=== PATIENT | male | born 1935 | race Caucasian/White ===

== ENCOUNTER 2018-11-25 16:57 | Inpatient (IN) | payer MEDICARE, MEDICAID ==
[~2018-11-25] VITALS: Ht 177.8 cm; Wt 91.3 kg
[2018-11-25 17:26] LABS: BASO # 0.1 x10^3/uL (0.0-0.2); BASO % 1 % (0-3); EOS # 0.2 x10^3/uL (0.0-0.7); EOS % 2 % (0-3); HEMATOCRIT 44.5 % (39.0-53.0); HEMOGLOBIN 15.2 g/dL (13.0-17.5); LYMPH # 1.8 x10^3/uL (1.0-4.8); LYMPH % 22 % (24-48); MEAN CORPUSCULAR HEMOGLOBIN 31 pg (25-35); MEAN CORPUSCULAR HGB CONC 34 g/dL (31-37); MEAN CORPUSCULAR VOLUME 89 fL (79-100); MONO # 0.6 x10^3/uL (0.0-1.1); MONO % 8 % (0-9); NEUT # 5.3 x10^3uL (1.8-7.7); NEUT % 67 % (31-73); PLATELET COUNT 200 x10^3/uL (140-400); RED BLOOD COUNT 4.99 x10^6/uL (4.30-5.70); RED CELL DISTRIBUTION WIDTH 13.5 % (11.5-14.5); WHITE BLOOD COUNT 7.9 x10^3/uL (4.0-11.0)
[2018-11-25 17:37] LABS: BACTERIA,URINE 0 /HPF (0-FEW); BILIRUBIN,URINE NEG (NEG); CLARITY,URINE CLEAR; COLOR,URINE YELLOW; GLUCOSE,URINE 500 mg/dL (NEG); NITRITE,URINE NEG (NEG); RBC,URINE 0 /HPF (0-2); SQUAMOUS EPITHELIAL CELL,UR OCC /LPF; UROBILINOGEN,URINE 0.2 mg/dL (0.2 mg/dL); WBC,URINE 0 /HPF (0-4)
--- NOTE | 2018-11-25 17:37 | EKG ---
[address] [address] Test Date: 2018-11-25 Test Time: 17:16:32 Pat Name: TANO RUSSO Department: Room: Gender: M Manager Sql: : 1935 Requested By: SHELLEY CHRISTOPHER Order Number: [id number] Reading MD: Steve Rust Measurements Intervals [place] Rate: 65 P: 40 MN: 276 QRS: -60 QRSD: 124 T: 1 QT: 432 QTc: 450 Interpretive Statements SINUS RHYTHM PROLONGED MN INTERVAL ABNORMAL LEFT AXIS DEVIATION QRS(T) CONTOUR ABNORMALITY CONSIDER ANTEROSEPTAL MYOCARDIAL DAMAGE ABNORMAL ECG RI6.01 No previous ECG available for comparison Electronically Signed On 11-29-2018 9:22:42 CDT by Steve Rust
--- NOTE | 2018-11-25 17:42 | PHYS DOC ---
Past History Past Medical History: Angina, Anxiety, COPD, Dementia, Heart Disease Past Surgical History: Other Alcohol Use: None Drug Use: None Adult General Chief Complaint Chief Complaint: PSYCH EVALUATION HPI HPI 82-year-old male presents for medical clearance for behavioral health admission. The patient was reported to inappropriately touching the staph in a sexual manner. He was also touching himself inappropriately while being cared for. The patient has dementia and does not really know why he is here. He denies any pain or to me. He has a right oertr-rze-hgzl amputation. He was not reported to have fever or chills. Review of Systems Review of Systems Constitutional: Denies fever or chills [] Eyes: Denies change in visual acuity, redness, or eye pain [] HENT: Denies nasal congestion or sore throat [] Respiratory: Denies cough or shortness of breath [] Cardiovascular: No additional information not addressed in HPI [] GI: Denies abdominal pain, nausea, vomiting, bloody stools or diarrhea [] : Denies dysuria or hematuria [] Musculoskeletal: Denies back pain or joint pain [] Integument: Denies rash or skin lesions [] Neurologic: Denies headache, focal weakness or sensory changes [] Endocrine: Denies polyuria or polydipsia [] All other systems were reviewed and found to be within normal limits, except as documented in this note. Physical Exam Physical Exam Constitutional: Well developed, well nourished, no acute distress, non-toxic appearance. [] HENT: Normocephalic, atraumatic, bilateral external ears normal, oropharynx moist, no oral exudates, nose normal. [] Eyes: PERRLA, EOMI, conjunctiva normal, no discharge. [] Neck: Normal range of motion, no tenderness, supple, no stridor. [] Cardiovascular:Heart rate regular rhythm, no murmur [] Lungs & Thorax: Bilateral breath sounds clear to auscultation [] Abdomen: Bowel sounds normal, soft, no tenderness, no masses, no pulsatile masses. [] Skin: Warm, dry, no erythema, no rash. [] Back: No tenderness, no CVA tenderness. [] Extremities: Right opymk-tzm-zvrs amputation[] Neurologic: Alert and oriented, dementia, normal motor function, normal sensory function, no focal deficits noted. [] Psychologic: Affect normal, judgement normal, mood normal. [] Current Patient Data Vital Signs Vital Signs Date Time Temp Pulse Resp B/P (MAP) Pulse Ox O2 Delivery O2 Flow Rate FiO2 11/25/18 17:09 98.2 66 24 97 Room Air Lab Results Laboratory Tests Test 11/25/18 17:13 White Blood Count 7.9 x10^3/uL (4.0-11.0) Red Blood Count 4.99 x10^6/uL (4.30-5.70) Hemoglobin 15.2 g/dL (13.0-17.5) Hematocrit 44.5 % (39.0-53.0) Mean Corpuscular Volume 89 fL (79-100) Mean Corpuscular Hemoglobin 31 pg (25-35) Mean Corpuscular Hemoglobin Concent 34 g/dL (31-37) Red Cell Distribution Width 13.5 % (11.5-14.5) Platelet Count 200 x10^3/uL (140-400) Neutrophils (%) (Auto) 67 % (31-73) Lymphocytes (%) (Auto) 22 % (24-48) L Monocytes (%) (Auto) 8 % (0-9) Eosinophils (%) (Auto) 2 % (0-3) Basophils (%) (Auto) 1 % (0-3) Neutrophils # (Auto) 5.3 x10^3uL (1.8-7.7) Lymphocytes # (Auto) 1.8 x10^3/uL (1.0-4.8) Monocytes # (Auto) 0.6 x10^3/uL (0.0-1.1) Eosinophils # (Auto) 0.2 x10^3/uL (0.0-0.7) Basophils # (Auto) 0.1 x10^3/uL (0.0-0.2) Urine Collection Type Unknown Urine Color Yellow Urine Clarity Clear Urine pH 6.0 Urine Specific [place] 1.015 Urine Protein Neg (NEG-TRACE) Urine Glucose (UA) 500 mg/dL (NEG) Urine Ketones (Stick) Trace mg/dL (NEG) Urine Blood Trace (NEG) Urine Nitrite Neg (NEG) Urine Bilirubin Neg (NEG) Urine Urobilinogen Dipstick 0.2 mg/dL (0.2 mg/dL) Urine Leukocyte Esterase Neg (NEG) Urine RBC 0 /HPF (0-2) Urine WBC 0 /HPF (0-4) Urine Squamous Epithelial Cells Occ /LPF Urine Bacteria 0 /HPF (0-FEW) EKG EKG Sinus rhythm, rate 65, leftward axis, prolonged AR, no ST elevations or depressions.[] Radiology/Procedures Radiology/Procedures [] Course & Med Decision Making Course & Med Decision Making Pertinent Labs and Imaging studies reviewed. (See chart for details) The patient's potassium is slightly elevated at 5.2. His glucose is also 331. His anion gap was normal. I do not believe he either of these precludes him from admission. He is medically stable for behavioral health admission. They will need to help manage his diabetes. [] Dragon Disclaimer Dragon Disclaimer This electronic medical record was generated, in whole or in part, using a voice recognition dictation system. Departure Departure: Impression: Primary Impression: Medical clearance for psychiatric admission Additional Impressions: Hyperglycemia Hyperkalemia Disposition: ADMITTED INPATIENT Condition: STABLE Referrals: JENNI SAN MD (PCP) Problem Qualifiers SHELLEY CHRISTOPHER DO Nov 25, 2018 17:42
[2018-11-25 17:52] LABS: ALBUMIN 3.6 g/dL (3.4-5.0); CALCIUM 8.8 mg/dL (8.5-10.1); CREATININE 1.6 mg/dL (0.7-1.3); GFR 41.8; POTASSIUM 5.2 mmol/L (3.5-5.1); TOTAL BILIRUBIN 0.3 mg/dL (0.2-1.0); TOTAL PROTEIN 7.3 g/dL (6.4-8.2)
[2018-11-25] MEDS ORDERED: RIVAROXABAN 10 MG TABLET. PO SCH (21:00)
[2018-11-25] MEDS ORDERED: AMLO5TAB10 PO (21:34)
[2018-11-25] MEDS ORDERED: DIVA500T17 PO (21:34)
[2018-11-25] MEDS ORDERED: CITA10TA4 PO (21:34)
[2018-11-25] MEDS ORDERED: LISI40TA PO (21:34)
[2018-11-25] MEDS ORDERED: ACET160S PO (21:34)
[2018-11-25] MEDS ORDERED: ATOR20TA58 PO (21:34)
[2018-11-25] MEDS ORDERED: TRAZ-120 PO (21:34)
[2018-11-25] MEDS ORDERED: LEVO25TA4 PO (21:34)
[2018-11-25] MEDS ORDERED: RIVA10TA PO (21:34)
[2018-11-25] MEDS ORDERED: INSU100I17 SQ ×3 (21:34)
[2018-11-25] MEDS ORDERED: INSU100V13 SQ ×2 (21:34)
[2018-11-25] MEDS ORDERED: DONE5TAB7 PO (21:34)
[2018-11-25] MEDS ORDERED: ACETAMINOPHEN 325 MG TABLET PO PRN ×2 (22:00→23:30)
[2018-11-25] MEDS: traZODone 50 MG TABLET. PO SCH (22:08)
[2018-11-25 22:15] VITALS: BP 171/97
[2018-11-25] MEDS: INSULIN GLARGINE 300 UNITS/3 ML INSULN.PEN. SQ SCH (22:19)
--- NOTE | 2018-11-25 22:24 | PDOC ---
Exam Note: Dwain Note: Please also refer to the separate dictated note~for this date of service dictated separately. Discussed the patient with Nursing staff reviewed the chart.~Reviewed interim history and current functioning. Reviewed vital signs,~Labs/ Radiology~and current medications noted below. Continue current treatment with the changes noted in the dictated addendum note Assessment: Vital Signs: Vital Signs Date Time Temp Pulse Resp B/P (MAP) Pulse Ox O2 Delivery O2 Flow Rate FiO2 11/25/18 22:15 97.7 66 18 171/97 (121) 98 11/25/18 17:09 Room Air Labs: Laboratory Tests Test 11/25/18 17:13 11/25/18 19:30 White Blood Count 7.9 x10^3/uL (4.0-11.0) Red Blood Count 4.99 x10^6/uL (4.30-5.70) Hemoglobin 15.2 g/dL (13.0-17.5) Hematocrit 44.5 % (39.0-53.0) Mean Corpuscular Volume 89 fL (79-100) Mean Corpuscular Hemoglobin 31 pg (25-35) Mean Corpuscular Hemoglobin Concent 34 g/dL (31-37) Red Cell Distribution Width 13.5 % (11.5-14.5) Platelet Count 200 x10^3/uL (140-400) Neutrophils (%) (Auto) 67 % (31-73) Lymphocytes (%) (Auto) 22 % (24-48) L Monocytes (%) (Auto) 8 % (0-9) Eosinophils (%) (Auto) 2 % (0-3) Basophils (%) (Auto) 1 % (0-3) Neutrophils # (Auto) 5.3 x10^3uL (1.8-7.7) Lymphocytes # (Auto) 1.8 x10^3/uL (1.0-4.8) Monocytes # (Auto) 0.6 x10^3/uL (0.0-1.1) Eosinophils # (Auto) 0.2 x10^3/uL (0.0-0.7) Basophils # (Auto) 0.1 x10^3/uL (0.0-0.2) Urine Collection Type Unknown Urine Color Yellow Urine Clarity Clear Urine pH 6.0 Urine Specific [place] 1.015 Urine Protein Neg (NEG-TRACE) Urine Glucose (UA) 500 mg/dL (NEG) Urine Ketones (Stick) Trace mg/dL (NEG) Urine Blood Trace (NEG) Urine Nitrite Neg (NEG) Urine Bilirubin Neg (NEG) Urine Urobilinogen Dipstick 0.2 mg/dL (0.2 mg/dL) Urine Leukocyte Esterase Neg (NEG) Urine RBC 0 /HPF (0-2) Urine WBC 0 /HPF (0-4) Urine Squamous Epithelial Cells Occ /LPF Urine Bacteria 0 /HPF (0-FEW) Sodium Level 133 mmol/L (136-145) L Potassium Level 5.2 mmol/L (3.5-5.1) H Chloride Level 98 mmol/L (98-107) Carbon Dioxide Level 26 mmol/L (21-32) Anion Gap 9 (6-14) Blood Urea Nitrogen 26 mg/dL (8-26) Creatinine 1.6 mg/dL (0.7-1.3) H Estimated GFR (Cockcroft-Gault) 41.8 BUN/Creatinine Ratio 16 (6-20) Glucose Level 331 mg/dL (70-99) H Calcium Level 8.8 mg/dL (8.5-10.1) Magnesium Level 2.0 mg/dL (1.8-2.4) Total Bilirubin 0.3 mg/dL (0.2-1.0) Aspartate Amino Transferase (AST) 11 U/L (15-37) L Alanine Aminotransferase (ALT) 15 U/L (16-63) L Alkaline Phosphatase 97 U/L (46-116) Total Protein 7.3 g/dL (6.4-8.2) Albumin 3.6 g/dL (3.4-5.0) Albumin/Globulin Ratio 1.0 (1.0-1.7) Glucose (Fingerstick) 323 mg/dL (70-99) H Current Medications: Meds: Current Medications Rivaroxaban (Xarelto) 20 mg HS PO ; Start 11/25/18 at 21:00 Insulin Glargine (Lantus) 45 units QHS SQ ; Start 11/25/18 at 21:00 Atorvastatin Calcium (Lipitor) 20 mg QHS PO ; Start 11/26/18 at 21:00 Citalopram Hydrobromide (CeleXA) 10 mg DAILYBFRSUP PO ; Start 11/26/18 at 17:00 Rivaroxaban (Xarelto) 20 mg HS PO ; Start 11/26/18 at 21:00; Stop 11/26/18 at 21:00; Status DC Acetaminophen (Tylenol) 650 mg PRN Q6HRS PRN PO PAIN / TEMP; Start 11/25/18 at 22:00 Amlodipine Besylate (Norvasc) 5 mg DAILY PO ; Start 11/26/18 at 09:00 Divalproex Sodium (Depakote Er) 500 mg DAILY PO ; Start 11/26/18 at 09:00 Donepezil HCl (Aricept) 5 mg DAILY PO ; Start 11/26/18 at 09:00 Insulin Human Lispro (HumaLOG) 10 units DAILYBFRLUN SQ ; Start 11/26/18 at 11:30 Insulin Human Lispro (HumaLOG) 10 units DAILYWBKFT SQ ; Start 11/26/18 at 08:00 Insulin Human Lispro (HumaLOG) 17 units DAILYWSUP SQ ; Start 11/26/18 at 17:00 Insulin Glargine (Lantus) 5 units DAILY SQ ; Start 11/26/18 at 09:00 Non-Formulary Medication (Insulin Detemir (Levemir)) 45 unit HS SQ ; Start 11/26/18 at 21:00; Stop 11/26/18 at 21:00; Status DC Levothyroxine Sodium (Synthroid) 25 mcg DAILY06 PO ; Start 11/26/18 at 06:00 Lisinopril (Prinivil) 40 mg DAILY PO ; Start 11/26/18 at 09:00 Trazodone HCl (Desyrel) 50 mg QHS PO ; Start 11/25/18 at 22:00 Active Scripts Active Reported Atorvastatin Calcium 20 Mg Tablet 20 Mg PO QHS Amlodipine Besylate 5 Mg Tablet 5 Mg PO DAILY Acetaminophen 160 Mg/5 Ml Solution 650 Mg PO PRN Q6HRS PRN Xarelto (Rivaroxaban) 10 Mg Tablet 20 Mg PO HS Trazodone Hcl 50 Mg Tablet 50 Mg PO HS Novolog Flexpen (Insulin Aspart) 100 Unit/1 Ml Insuln.pen 17 Unit SQ DAILYWSUP Novolog Flexpen (Insulin Aspart) 100 Unit/1 Ml Insuln.pen 10 Unit SQ DAILYBFRLUN Novolog Flexpen (Insulin Aspart) 100 Unit/1 Ml Insuln.pen 10 Unit SQ DAILYWBKFT Levothyroxine Sodium 25 Mcg Tablet 25 Mcg PO DAILYAC Levemir (Insulin Detemir) 100 Unit/1 Ml Vial 5 SQ DAILY Levemir (Insulin Detemir) 100 Unit/1 Ml Vial 45 Unit SQ HS Donepezil Hcl 5 Mg Tablet 5 Mg PO DAILY Divalproex Sodium Er (Divalproex Sodium) 500 Mg Tab.er.24h 500 Mg PO DAILY Citalopram Hbr (Citalopram Hydrobromide) 10 Mg Tablet 10 Mg PO DAILYBFRSUP Lisinopril 40 Mg Tablet 40 Mg PO DAILY I have reviewed the current psychotropics carefully including drug interactions. Risk benefit ratio favors no change other than as noted in my dictated progress note. NEGIN CRUZ MD Nov 25, 2018 22:24
[2018-11-25] MEDS ORDERED: MAG HYDROX/AL HYDROX/SIMETH 30 ML ORAL.SUSP PO PRN (23:30)
[2018-11-25] MEDS ORDERED: MAGNESIUM HYDROXIDE 2,400 MG/30 ML ORAL.SUSP. PO PRN (23:30)
[2018-11-25] MEDS ORDERED: METHYL SALICYLATE/MENTHOL TOPICAL OINTMENT 29GM TUBE. TP PRN (23:30)
[2018-11-26 00:12] LABS: VAL ACID 32 mcg/mL (50-100)
[2018-11-26 05:54] VITALS: BP 122/72
[2018-11-26] MEDS: LEVOTHYROXINE 25 MCG TABLET. PO SCH (05:59)
[2018-11-26] MEDS: DONEPEZIL HCL 5 MG TABLET. PO SCH (07:53)
[2018-11-26] MEDS: LISINOPRIL 20 MG TABLET PO SCH (07:54)
[2018-11-26] MEDS: amLODIPine BESYLATE 5 MG TABLET PO SCH (07:55)
[2018-11-26] MEDS: DIVALPROEX ER 500 MG TAB.ER.24H PO SCH (07:55)
[2018-11-26] MEDS: INSULIN LISPRO 300 UNITS/3 ML INSULN.PEN. SQ SCH ×3 (07:59→17:51)
[2018-11-26] MEDS: INSULIN GLARGINE 300 UNITS/3 ML INSULN.PEN. SQ SCH ×2 (08:02→19:44)
--- NOTE | 2018-11-26 13:05 | HP ---
ADMIT DATE: 11/25/2018 NO DICTATION MAN Dulce CRUZ MD DR: Capri JOB#: [id number] / [id number]
[2018-11-26 15:44] VITALS: BP 180/77
[2018-11-26 16:07] LABS: THYROXINE 6.3 ug/dL (4.5-12.0)
[2018-11-26] MEDS ORDERED: CITALOPRAM 10 MG TABLET. PO SCH (17:00)
[2018-11-26] MEDS: traZODone 50 MG TABLET. PO SCH (19:23)
[2018-11-26] MEDS: ATORVASTATIN CALCIUM 20 MG TABLET PO SCH (19:42)
[2018-11-26] MEDS: RIVAROXABAN 15 MG TABLET. PO SCH (19:42)
[2018-11-26] MEDS ORDERED: INSULIN DETEMIR 45 UNIT SQ SCH (21:00)
[2018-11-26] MEDS ORDERED: RIVAROXABAN 10 MG TABLET. PO SCH (21:00)
[2018-11-26 21:07] LABS: THYROID STIM HORMONE (TSH) 3.13 uIU/mL (0.358-3.740)
--- NOTE | 2018-11-26 21:30 | PDOC ---
Exam Note: Dwain Note: Please also refer to the separate dictated note~for this date of service dictated separately.~Patient seen individually. Discussed the patient with Nursing staff reviewed the chart.~Reviewed interim history and current functioning. Reviewed vital signs,~Labs/ Radiology~and current medications noted below. Continue current treatment with the changes noted in the dictated addendum note Assessment: Vital Signs: Vital Signs Date Time Temp Pulse Resp B/P (MAP) Pulse Ox O2 Delivery O2 Flow Rate FiO2 11/26/18 15:44 97.3 69 16 180/77 (111) 97 11/26/18 05:54 Room Air Labs: Laboratory Tests Test 11/26/18 07:35 11/26/18 12:11 11/26/18 17:21 11/26/18 19:42 Glucose (Fingerstick) 114 mg/dL (70-99) H 76 mg/dL (70-99) 227 mg/dL (70-99) H 237 mg/dL (70-99) H Current Medications: Meds: Current Medications Rivaroxaban (Xarelto) 20 mg HS PO Last administered on 11/25/18at 22:08; Start 11/25/18 at 21:00; Stop 11/26/18 at 14:13; Status DC Insulin Glargine (Lantus) 45 units QHS SQ Last administered on 11/26/18at 19:44; Start 11/25/18 at 21:00 Atorvastatin Calcium (Lipitor) 20 mg QHS PO Last administered on 11/26/18at 19:42; Start 11/26/18 at 21:00 Citalopram Hydrobromide (CeleXA) 10 mg DAILYBFRSUP PO Last administered on 11/26/18at 16:02; Start 11/26/18 at 17:00 Rivaroxaban (Xarelto) 20 mg HS PO ; Start 11/26/18 at 21:00; Stop 11/26/18 at 21:00; Status DC Acetaminophen (Tylenol) 650 mg PRN Q6HRS PRN PO PAIN / TEMP; Start 11/25/18 at 22:00 Amlodipine Besylate (Norvasc) 5 mg DAILY PO Last administered on 11/26/18at 07:55; Start 11/26/18 at 09:00 Divalproex Sodium (Depakote Er) 500 mg DAILY PO Last administered on 11/26/18at 07:55; Start 11/26/18 at 09:00 Donepezil HCl (Aricept) 5 mg DAILY PO Last administered on 11/26/18at 07:53; Start 11/26/18 at 09:00 Insulin Human Lispro (HumaLOG) 10 units DAILYBFRLUN SQ ; Start 11/26/18 at 11:30 Insulin Human Lispro (HumaLOG) 10 units DAILYWBKFT SQ Last administered on 11/26/18at 07:59; Start 11/26/18 at 08:00 Insulin Human Lispro (HumaLOG) 17 units DAILYWSUP SQ Last administered on 11/26/18at 17:51; Start 11/26/18 at 17:00 Insulin Glargine (Lantus) 5 units DAILY SQ Last administered on 11/26/18at 08:02; Start 11/26/18 at 09:00 Non-Formulary Medication (Insulin Detemir (Levemir)) 45 unit HS SQ ; Start 11/26/18 at 21:00; Stop 11/26/18 at 21:00; Status DC Levothyroxine Sodium (Synthroid) 25 mcg DAILY06 PO Last administered on 11/26/18at 05:59; Start 11/26/18 at 06:00 Lisinopril (Prinivil) 40 mg DAILY PO Last administered on 11/26/18at 07:54; Start 11/26/18 at 09:00 Trazodone HCl (Desyrel) 50 mg QHS PO Last administered on 11/26/18at 19:23; Start 11/25/18 at 22:00 Acetaminophen (Tylenol) 650 mg PRN Q6HRS PRN PO PAIN / TEMP; Start 11/25/18 at 23:30; Status UNV Multi-Ingredient Ointment (Analgesic [place]) 1 katarzyna PRN QID PRN TP MUSCLE PAIN; Start 11/25/18 at 23:30 Al Hydroxide/Mg Hydroxide (Mylanta Plus Xs) 15 ml PRN AFTMEALHC PRN PO DYSPEPSIA; Start 11/25/18 at 23:30 Magnesium Hydroxide (Milk Of Magnesia) 2,400 mg PRN QHS PRN PO CONSTIPATION; Start 11/25/18 at 23:30 Rivaroxaban (Xarelto) 15 mg QHS PO Last administered on 11/26/18at 19:42; Start 11/26/18 at 21:00 Active Scripts Active Reported Atorvastatin Calcium 20 Mg Tablet 20 Mg PO QHS Amlodipine Besylate 5 Mg Tablet 5 Mg PO DAILY Acetaminophen 160 Mg/5 Ml Solution 650 Mg PO PRN Q6HRS PRN Xarelto (Rivaroxaban) 10 Mg Tablet 20 Mg PO HS Trazodone Hcl 50 Mg Tablet 50 Mg PO HS Novolog Flexpen (Insulin Aspart) 100 Unit/1 Ml Insuln.pen 17 Unit SQ DAILYWSUP Novolog Flexpen (Insulin Aspart) 100 Unit/1 Ml Insuln.pen 10 Unit SQ DAILYBFRLUN Novolog Flexpen (Insulin Aspart) 100 Unit/1 Ml Insuln.pen 10 Unit SQ DAILYWBKFT Levothyroxine Sodium 25 Mcg Tablet 25 Mcg PO DAILYAC Levemir (Insulin Detemir) 100 Unit/1 Ml Vial 5 SQ DAILY Levemir (Insulin Detemir) 100 Unit/1 Ml Vial 45 Unit SQ HS Donepezil Hcl 5 Mg Tablet 5 Mg PO DAILY Divalproex Sodium Er (Divalproex Sodium) 500 Mg Tab.er.24h 500 Mg PO DAILY Citalopram Hbr (Citalopram Hydrobromide) 10 Mg Tablet 10 Mg PO DAILYBFRSUP Lisinopril 40 Mg Tablet 40 Mg PO DAILY I have reviewed the current psychotropics carefully including drug interactions. Risk benefit ratio favors no change other than as noted in my dictated progress note. 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
[2018-11-26 22:12] LABS: HEMOGLOBIN A1C 8.5 % (4.8-5.6)
[2018-11-27 05:55] VITALS: BP 131/60
[2018-11-27] MEDS: LEVOTHYROXINE 25 MCG TABLET. PO SCH (06:13)
[2018-11-27] MEDS: INSULIN LISPRO 300 UNITS/3 ML INSULN.PEN. SQ SCH ×3 (08:00→17:15)
--- NOTE | 2018-11-27 08:46 | HP ---
ADMIT DATE: 11/25/2018 PSYCHIATRIC ADMISSION HISTORY AND EVALUATION This is a late entry of date of service 11/25/2018, covers elements not covered in my initial note of 11/25/2018. IDENTIFYING DATA: The patient is an 82-year-old male referred to us from [place], [place] by his primary care physician/psychiatrist on account of worsening confusion and marked escalation of his sexually inappropriate, aggressive, disruptive behaviors. Reportedly, he had been masturbating during cares. He was asking for sexual favors from other residents and putting female residents' hands on his penis. He was verbally aggressive, even more confused than he is at baseline, appeared psychotic, unmanageable at the facility resulting in this referral. CHIEF COMPLAINT: "I don't know when I came here. I came from [place]. No, I don't know the name of the place. I don't know why." The patient responded after I questioned him about circumstances prompting admission, and he seemed either to ignore the questions or did not seem to remember genuinely due to his memory deficits. HISTORY OF PRESENT ILLNESS: The patient has a history of dementia, Alzheimer's, vascular type. He has been residing at the above facility for some time, but more recently getting increasingly aggressive, agitated, sexually inappropriate disruptive as noted above. No clear symptoms of bipolar disorder, suicidal or homicidal ideation. He has had sleep and appetite disturbance. PAST PSYCHIATRIC HISTORY: As above. PAST MEDICAL HISTORY: Positive for right below knee amputation, hypothyroidism, generalized muscle weakness, atherosclerotic heart disease, type 2 diabetes mellitus with diabetic neuropathy, hyperlipidemia, hypertension, atrial fibrillation, COPD and he has a pacemaker in place. ALLERGIES: MORPHINE. CODE STATUS: Full code. Accu-Cheks a.c. and at bedtime. DIET: Regular, cardiac. Takes medications whole. Ambulates in wheelchair, right leg has below-knee amputation. UA on 11/25/2018 was negative. CURRENT PSYCHOTROPICS: Celexa 10 mg a day, Depakote ER 500 mg daily, Aricept 10 mg a day, and trazodone 50 mg at bedtime. FAMILY HISTORY: Noncontributory. SOCIAL HISTORY: No history of alcohol, drug abuse, physical, sexual elder abuse history is noted. Perpetration behaviors are noted above. REACTION TO HOSPITALIZATION: The patient seems somewhat oblivious to this. ASSETS: Supportive living at the above facility, supportive family. MENTAL STATUS EXAMINATION: The patient was seen individually. He is oriented to himself, not entirely aware where he was, felt the year was 1959, unaware of the name of the president as I pointedly questioned him. Insight, judgment, recent and remote memory, attention, concentration, fund of knowledge poor, consistent with his diagnosis. IMPRESSION: Major neurocognitive disorder, Alzheimer, vascular with delusion, depression, behavioral disturbance; anxiety disorder, unspecified; impulse control disorder, unspecified. Rest diagnoses as above. PLAN: Admit to geropsychiatry unit at [facility]. I will see the patient daily individually from a psychiatric standpoint. Medical followup per Dr. Pierre. Continue the patient on his current psychotropics. Observe baseline, then make further adjustments as clinically indicated. Estimated length of stay 10-12 days. DISPOSITION: Plans back to retirement when stable. We will have to adjust Depakote to reach a therapeutic level. Consider hormone supplements if sexually inappropriate behaviors persist. MAN Dulce CRUZ MD DR: JADA/archie JOB#: [id number] / [id number]
[2018-11-27] MEDS: DIVALPROEX ER 500 MG TAB.ER.24H PO SCH (09:00)
[2018-11-27] MEDS: LISINOPRIL 20 MG TABLET PO SCH (09:00)
[2018-11-27] MEDS: INSULIN GLARGINE 300 UNITS/3 ML INSULN.PEN. SQ SCH ×2 (09:00→19:30)
[2018-11-27] MEDS: DONEPEZIL HCL 5 MG TABLET. PO SCH (09:00)
[2018-11-27] MEDS: amLODIPine BESYLATE 5 MG TABLET PO SCH (09:00)
[2018-11-27] MEDS ORDERED: DIVALPROEX ER 250 MG TAB.ER.24H. PO ONE (11:45)
[2018-11-27 13:07] LABS: BASO # 0.1 x10^3/uL (0.0-0.2); BASO % 1 % (0-3); EOS # 0.1 x10^3/uL (0.0-0.7); EOS % 1 % (0-3); HEMATOCRIT 42.6 % (39.0-53.0); HEMOGLOBIN 14.8 g/dL (13.0-17.5); LYMPH # 1.9 x10^3/uL (1.0-4.8); LYMPH % 23 % (24-48); MEAN CORPUSCULAR HEMOGLOBIN 31 pg (25-35); MEAN CORPUSCULAR HGB CONC 35 g/dL (31-37); MEAN CORPUSCULAR VOLUME 89 fL (79-100); MONO # 0.5 x10^3/uL (0.0-1.1); MONO % 6 % (0-9); NEUT # 5.7 x10^3uL (1.8-7.7); NEUT % 69 % (31-73); PLATELET COUNT 200 x10^3/uL (140-400); RED CELL DISTRIBUTION WIDTH 13.7 % (11.5-14.5); WHITE BLOOD COUNT 8.3 x10^3/uL (4.0-11.0)
[2018-11-27 13:20] LABS: ALBUMIN 3.3 g/dL (3.4-5.0); CALCIUM 8.3 mg/dL (8.5-10.1); CREATININE 1.6 mg/dL (0.7-1.3); GFR 41.8; POTASSIUM 3.9 mmol/L (3.5-5.1); TOTAL BILIRUBIN 0.4 mg/dL (0.2-1.0); TOTAL PROTEIN 6.7 g/dL (6.4-8.2)
--- NOTE | 2018-11-27 14:51 | CONS ---
DATE OF CONSULTATION: 11/26/2018 REASON FOR CONSULTATION: Consult for medical management. HISTORY OF PRESENT ILLNESS: The patient is an 82-year-old male patient, a resident at [facility] in [place], who [facility] on account of masturbating during cares, asking sexual favors from other resident, putting female resident's hands on his penis, being verbally aggressive, all these on a background of major neurocognitive disorder, vascular, Alzheimer with delusion, depression. He was admitted for inpatient psychiatric stabilization. PAST MEDICAL HISTORY: His past medical history is significant for hypothyroidism, atherosclerotic heart disease, type 2 diabetes mellitus, diabetic neuropathy, hypertension, hyperlipidemia. Other medical problems are including atrial fibrillation, chronic obstructive airway disease. PAST SURGICAL HISTORY: Past surgical history is significant for right below knee amputation. PAST PSYCHIATRIC HISTORY: Past psychiatric history is significant for neurocognitive disorder, vascular, Alzheimer with delusion, depression. He is also known to have anxiety disorder, impulse control disorder as well. FAMILY HISTORY: Unremarkable. SOCIAL HISTORY: He is a resident at [facility] in [place]. He apparently does not smoke, drink alcohol or use any recreational drugs. REVIEW OF SYSTEMS: As per history of present illness. ALLERGIES: He is ALLERGIC TO MORPHINE. MEDICATIONS: He is currently on following medications: He is on Aricept 5 mg once a day, rivaroxaban 20 mg once a day, atorvastatin calcium 20 mg at bedtime, amlodipine 5 mg once a day, lisinopril 40 mg once a day, Tylenol 650 mg every 6 hours as needed. He is on divalproex 500 mg daily, citalopram hydrobromide 10 mg daily, trazodone 50 mg at bedtime. He is on NovoLog insulin 10 units before breakfast and 10 units before lunch and 17 units before supper. He is on Levemir insulin 5 units subcutaneously daily, levothyroxine sodium 25 mcg daily. PHYSICAL EXAMINATION: GENERAL: When I saw him this afternoon, he was resting, slightly propped up in bed, in no apparent respiratory distress. There was no pallor, jaundice, cyanosis, or thyromegaly. No jugular venous distension. No lower limb edema. VITAL SIGNS: His heart rate was 74, blood pressure was 122/72, temperature was 98.4, respiratory rate 20 and oxygen saturation was 94%. HEENT: Examination of the head, eyes, ears, nose and throat showed normocephalic, atraumatic. NECK: Supple. HEART: Showed normal first and second heart sounds. No gallop, rub or murmur. CHEST: Clear to auscultation. No crepitation or rhonchi. ABDOMEN: Distended, soft, nontender. NEUROLOGIC: He was sleepy, but arousable. All his cranial nerves are intact. EXTREMITIES: He moves extremities without difficulty. He has right below knee amputation. LABORATORY DATA: His lab work showed the white cell count 7900, hemoglobin 15, hematocrit 44, MCV 89 and platelet count of 200,000 with normal manual differential. Serum sodium was 133, potassium 5.2. His chloride 98, bicarbonate 26, anion gap of 9, BUN 26, creatinine 1.6, estimated GFR was 42 mL per minute. His glucose was 331, calcium was 8.8, magnesium 2. Total bilirubin, AST, ALT, alkaline phosphatase were normal. Total protein was 7.3, albumin 3.6. Urinalysis was essentially unremarkable and his toxic screen showed the valproic acid was only 32 mcg/mL. ASSESSMENT AND PLAN: So, in summary, this is an 82-year-old male patient, a resident at [facility] in [place] who was admitted on account of masturbating during cares and asking sexual favors from other resident, putting female resident's hands on his penis, being verbally aggressive. Medically, he seemed to be all in all stable. His vital signs are mostly within acceptable range. His lab work are stable except for impaired kidney function with the serum creatinine of 1.6, mild hyponatremia and mild hyperkalemia. I will obviously follow his labs closely and decide on further management accordingly. MARYCRUZ NEWTON MD DR: JANICE/archie JOB#: [id number] / [id number]
[2018-11-27 16:07] VITALS: BP 120/60
[2018-11-27] MEDS: RIVAROXABAN 15 MG TABLET. PO SCH (19:27)
[2018-11-27] MEDS: ATORVASTATIN CALCIUM 20 MG TABLET PO SCH (19:27)
[2018-11-27] MEDS: traZODone 50 MG TABLET. PO SCH (19:27)
--- NOTE | 2018-11-27 20:46 | PN ---
DATE: 11/26/2018 PSYCHIATRIC PROGRESS NOTE This late entry 11/26/2018 covers elements not covered in my initial note. SUBJECTIVE: I met with the patient in the evening. Per nursing report, the patient remains somewhat withdrawn, irritable at times. Dr. Pierre is following him medically. REVIEW OF SYSTEMS: Ambulation impaired. 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 No CV, , pulmonary, eye system symptoms on review. MENTAL STATUS EXAM: Oriented to himself. Insight, judgment, recent and remote memory, attention, concentration, fund of knowledge poor, consistent with his diagnosis. IMPRESSION: Major neurocognitive disorder; Alzheimer, vascular with delusion, depression; behavioral disturbance; anxiety disorder, unspecified; impulse control disorder, unspecified. PLAN: Continue current psychotropics. Valproic acid level is 32, subtherapeutic. We will go ahead and increase the Depakote ER to 750 mg p.o. at bedtime. Check CBC, CMP, valproic acid level in 3 days. Change Celexa to Zoloft 50 mg a day and consider adding Provera if sexually inappropriate behaviors resurface. He may be going through a honeymoon phase and not manifesting the significant sexually inappropriate behaviors that prompted admission. NEGIN CRUZ MD DR: JADA/archie JOB#: [id number] / [id number]
--- NOTE | 2018-11-27 23:00 | PDOC ---
Exam Note: Dwain Note: Please also refer to the separate dictated note~for this date of service dictated separately.~Patient seen individually. Discussed the patient with Nursing staff reviewed the chart.~Reviewed interim history and current functioning. Reviewed vital signs,~Labs/ Radiology~and current medications noted below. Continue current treatment with the changes noted in the dictated addendum note Assessment: Vital Signs: Vital Signs Date Time Temp Pulse Resp B/P (MAP) Pulse Ox O2 Delivery O2 Flow Rate FiO2 11/27/18 16:07 97.5 82 18 120/60 (80) 95 11/26/18 05:54 Room Air I&O Intake and Output 11/27/18 06:59 Intake Total 720 ml Balance 720 ml Intake Oral 720 ml Labs: Laboratory Tests Test 11/27/18 07:32 11/27/18 11:42 11/27/18 13:00 11/27/18 16:46 Glucose (Fingerstick) 97 mg/dL (70-99) 123 mg/dL (70-99) H 149 mg/dL (70-99) H White Blood Count 8.3 x10^3/uL (4.0-11.0) Red Blood Count 4.80 x10^6/uL (4.30-5.70) Hemoglobin 14.8 g/dL (13.0-17.5) Hematocrit 42.6 % (39.0-53.0) Mean Corpuscular Volume 89 fL (79-100) Mean Corpuscular Hemoglobin 31 pg (25-35) Mean Corpuscular Hemoglobin Concent 35 g/dL (31-37) Red Cell Distribution Width 13.7 % (11.5-14.5) Platelet Count 200 x10^3/uL (140-400) Neutrophils (%) (Auto) 69 % (31-73) Lymphocytes (%) (Auto) 23 % (24-48) L Monocytes (%) (Auto) 6 % (0-9) Eosinophils (%) (Auto) 1 % (0-3) Basophils (%) (Auto) 1 % (0-3) Neutrophils # (Auto) 5.7 x10^3uL (1.8-7.7) Lymphocytes # (Auto) 1.9 x10^3/uL (1.0-4.8) Monocytes # (Auto) 0.5 x10^3/uL (0.0-1.1) Eosinophils # (Auto) 0.1 x10^3/uL (0.0-0.7) Basophils # (Auto) 0.1 x10^3/uL (0.0-0.2) Sodium Level 138 mmol/L (136-145) Potassium Level 3.9 mmol/L (3.5-5.1) Chloride Level 101 mmol/L (98-107) Carbon Dioxide Level 31 mmol/L (21-32) Anion Gap 6 (6-14) Blood Urea Nitrogen 25 mg/dL (8-26) Creatinine 1.6 mg/dL (0.7-1.3) H Estimated GFR (Cockcroft-Gault) 41.8 BUN/Creatinine Ratio 16 (6-20) Glucose Level 98 mg/dL (70-99) Calcium Level 8.3 mg/dL (8.5-10.1) L Total Bilirubin 0.4 mg/dL (0.2-1.0) Aspartate Amino Transferase (AST) 13 U/L (15-37) L Alanine Aminotransferase (ALT) 14 U/L (16-63) L Alkaline Phosphatase 90 U/L (46-116) Total Protein 6.7 g/dL (6.4-8.2) Albumin 3.3 g/dL (3.4-5.0) L Albumin/Globulin Ratio 1.0 (1.0-1.7) Test 11/27/18 19:07 Glucose (Fingerstick) 236 mg/dL (70-99) H Current Medications: Meds: Current Medications Rivaroxaban (Xarelto) 20 mg HS PO Last administered on 11/25/18at 22:08; Start 11/25/18 at 21:00; Stop 11/26/18 at 14:13; Status DC Insulin Glargine (Lantus) 45 units QHS SQ Last administered on 11/27/18 19:30; Start 11/25/18 at 21:00 Atorvastatin Calcium (Lipitor) 20 mg QHS PO Last administered on 11/27/18at 19:27; Start 11/26/18 at 21:00 Citalopram Hydrobromide (CeleXA) 10 mg DAILYBFRSUP PO Last administered on 11/26/18at 16:02; Start 11/26/18 at 17:00; Stop 11/27/18 at 11:53; Status DC Rivaroxaban (Xarelto) 20 mg HS PO ; Start 11/26/18 at 21:00; Stop 11/26/18 at 21:00; Status DC Acetaminophen (Tylenol) 650 mg PRN Q6HRS PRN PO PAIN / TEMP; Start 11/25/18 at 22:00 Amlodipine Besylate (Norvasc) 5 mg DAILY PO Last administered on 11/27/18at 09:00; Start 11/26/18 at 09:00 Divalproex Sodium (Depakote Er) 500 mg DAILY PO Last administered on 11/27/18at 09:00; Start 11/26/18 at 09:00; Stop 11/27/18 at 11:53; Status DC Donepezil HCl (Aricept) 5 mg DAILY PO Last administered on 11/27/18at 09:00; Start 11/26/18 at 09:00 Insulin Human Lispro (HumaLOG) 10 units DAILYBFRLUN SQ Last administered on 11/27/18at 12:06; Start 11/26/18 at 11:30 Insulin Human Lispro (HumaLOG) 10 units DAILYWBKFT SQ Last administered on 11/27/18at 08:00; Start 11/26/18 at 08:00 Insulin Human Lispro (HumaLOG) 17 units DAILYWSUP SQ Last administered on 11/27/18at 17:15; Start 11/26/18 at 17:00 Insulin Glargine (Lantus) 5 units DAILY SQ Last administered on 11/27/18at 09:00; Start 11/26/18 at 09:00 Non-Formulary Medication (Insulin Detemir (Levemir)) 45 unit HS SQ ; Start 11/26/18 at 21:00; Stop 11/26/18 at 21:00; Status DC Levothyroxine Sodium (Synthroid) 25 mcg DAILY06 PO Last administered on 11/27/18at 06:13; Start 11/26/18 at 06:00 Lisinopril (Prinivil) 40 mg DAILY PO Last administered on 11/27/18at 09:00; Start 11/26/18 at 09:00 Trazodone HCl (Desyrel) 50 mg QHS PO Last administered on 5/1/19at 19:27; Start 11/25/18 at 22:00 Acetaminophen (Tylenol) 650 mg PRN Q6HRS PRN PO PAIN / TEMP; Start 11/25/18 at 23:30; Status UNV Multi-Ingredient Ointment (Analgesic [place]) 1 katarzyna PRN QID PRN TP MUSCLE PAIN; Start 11/25/18 at 23:30 Al Hydroxide/Mg Hydroxide (Mylanta Plus Xs) 15 ml PRN AFTMEALHC PRN PO D YSPEPSIA; Start 11/25/18 at 23:30 Magnesium Hydroxide (Milk Of Magnesia) 2,400 mg PRN QHS PRN PO CONSTIPATION; Start 11/25/18 at 23:30 Rivaroxaban (Xarelto) 15 mg QHS PO Last administered on 11/27/18at 19:27; Start 11/26/18 at 21:00 Divalproex Sodium (Depakote Er) 750 mg HS PO ; Start 11/28/18 at 21:00 Sertraline HCl (Zoloft) 50 mg DAILY PO ; Start 11/28/18 at 09:00 Divalproex Sodium (Depakote Er) 250 mg 1X ONCE PO Last administered on 11/27/18at 12:08; Start 11/27/18 at 11:45; Stop 11/27/18 at 11:58; Status DC Active Scripts Active Reported Atorvastatin Calcium 20 Mg Tablet 20 Mg PO QHS Amlodipine Besylate 5 Mg Tablet 5 Mg PO DAILY Acetaminophen 160 Mg/5 Ml Solution 650 Mg PO PRN Q6HRS PRN Xarelto (Rivaroxaban) 10 Mg Tablet 20 Mg PO HS Trazodone Hcl 50 Mg Tablet 50 Mg PO HS Novolog Flexpen (Insulin Aspart) 100 Unit/1 Ml Insuln.pen 17 Unit SQ DAILYWSUP Novolog Flexpen (Insulin Aspart) 100 Unit/1 Ml Insuln.pen 10 Unit SQ DAILYBFRLUN Novolog Flexpen (Insulin Aspart) 100 Unit/1 Ml Insuln.pen 10 Unit SQ DAILYWBKFT Levothyroxine Sodium 25 Mcg Tablet 25 Mcg PO DAILYAC Levemir (Insulin Detemir) 100 Unit/1 Ml Vial 5 SQ DAILY Levemir (Insulin Detemir) 100 Unit/1 Ml Vial 45 Unit SQ HS Donepezil Hcl 5 Mg Tablet 5 Mg PO DAILY Divalproex Sodium Er (Divalproex Sodium) 500 Mg Tab.er.24h 500 Mg PO DAILY Citalopram Hbr (Citalopram Hydrobromide) 10 Mg Tablet 10 Mg PO DAILYBFRSUP Lisinopril 40 Mg Tablet 40 Mg PO DAILY I have reviewed the current psychotropics carefully including drug interactions. Risk benefit ratio favors no change other than as noted in my dictated progress note. Diagnosis: Problems: (1) Anxiety disorder (2) Dementia, vascular, with delusions (3) Dementia, vascular, with depression (4) Dementia in Alzheimer's disease with delusions (5) Dementia in Alzheimer's disease with depression (6) Impulse control disorder NEGIN CRUZ MD November 27, 2018 23:00
[2018-11-28 05:29] VITALS: BP 121/72
[2018-11-28] MEDS: LEVOTHYROXINE 25 MCG TABLET. PO SCH (05:30)
[2018-11-28] MEDS: INSULIN LISPRO 300 UNITS/3 ML INSULN.PEN. SQ SCH ×4 (08:00→17:26)
[2018-11-28] MEDS: LISINOPRIL 20 MG TABLET PO SCH (08:11)
[2018-11-28] MEDS: amLODIPine BESYLATE 5 MG TABLET PO SCH (08:11)
[2018-11-28] MEDS: DONEPEZIL HCL 5 MG TABLET. PO SCH (08:11)
[2018-11-28] MEDS: INSULIN GLARGINE 300 UNITS/3 ML INSULN.PEN. SQ SCH ×2 (08:14→19:55)
[2018-11-28] MEDS: SERTRALINE 50 MG TABLET. PO SCH (08:16)
[2018-11-28 15:59] VITALS: BP 113/74
[2018-11-28] MEDS: ATORVASTATIN CALCIUM 20 MG TABLET PO SCH (19:50)
[2018-11-28] MEDS: RIVAROXABAN 15 MG TABLET. PO SCH (19:50)
[2018-11-28] MEDS: traZODone 50 MG TABLET. PO SCH (19:50)
[2018-11-28] MEDS: DIVALPROEX ER 250 MG TAB.ER.24H. PO SCH (19:51)
--- NOTE | 2018-11-28 22:32 | PDOC ---
Exam Note: Dwain Note: Please also refer to the separate dictated note~for this date of service dictated separately.~Patient seen individually. Discussed the patient with Nursing staff reviewed the chart.~Reviewed interim history and current functioning. Reviewed vital signs,~Labs/ Radiology~and current medications noted below. Continue current treatment with the changes noted in the dictated addendum note Assessment: Vital Signs: Vital Signs Date Time Temp Pulse Resp B/P (MAP) Pulse Ox O2 Delivery O2 Flow Rate FiO2 11/28/18 15:59 98.7 92 18 113/74 (87) 95 11/26/18 05:54 Room Air I&O Intake and Output 11/28/18 07:00 Intake Total 960 ml Balance 960 ml Intake Oral 960 ml # Voids 1 Labs: Laboratory Tests Test 11/28/18 07:10 11/28/18 07:44 11/28/18 11:28 11/28/18 17:03 Glucose (Fingerstick) 59 mg/dL (70-99) L 105 mg/dL (70-99) H 255 mg/dL (70-99) H 196 mg/dL (70-99) H Test 11/28/18 19:09 Glucose (Fingerstick) 199 mg/dL (70-99) H Current Medications: Meds: Current Medications Rivaroxaban (Xarelto) 20 mg HS PO Last administered on 11/25/18at 22:08; Start 11/25/18 at 21:00; Stop 11/26/18 at 14:13; Status DC Insulin Glargine (Lantus) 45 units QHS SQ Last administered on 11/28/18 19:55; Start 11/25/18 at 21:00 Atorvastatin Calcium (Lipitor) 20 mg QHS PO Last administered on 11/28/18at 19:50; Start 11/26/18 at 21:00 Citalopram Hydrobromide (CeleXA) 10 mg DAILYBFRSUP PO Last administered on 11/26/18at 16:02; Start 11/26/18 at 17:00; Stop 11/27/18 at 11:53; Status DC Rivaroxaban (Xarelto) 20 mg HS PO ; Start 11/26/18 at 21:00; Stop 11/26/18 at 21:00; Status DC Acetaminophen (Tylenol) 650 mg PRN Q6HRS PRN PO PAIN / TEMP; Start 11/25/18 at 22:00 Amlodipine Besylate (Norvasc) 5 mg DAILY PO Last administered on 11/28/18 08:11; Start 11/26/18 at 09:00 Divalproex Sodium (Depakote Er) 500 mg DAILY PO Last administered on 11/27/18 09:00; Start 11/26/18 at 09:00; Stop 11/27/18 at 11:53; Status DC Donepezil HCl (Aricept) 5 mg DAILY PO Last administered on 11/28/18 08:11; Start 11/26/18 at 09:00 Insulin Human Lispro (HumaLOG) 10 units DAILYBFRLUN SQ Last administered on 11/28/18at 12:04; Start 11/26/18 at 11:30 Insulin Human Lispro (HumaLOG) 10 units DAILYWBKFT SQ Last administered on 11/27/18at 08:00; Start 11/26/18 at 08:00 Insulin Human Lispro (HumaLOG) 17 units DAILYWSUP SQ Last administered on 11/28/18at 17:26; Start 11/26/18 at 17:00 Insulin Glargine (Lantus) 5 units DAILY SQ Last administered on 11/28/18 08:14; Start 11/26/18 at 09:00 Non-Formulary Medication (Insulin Detemir (Levemir)) 45 unit HS SQ ; Start 11/26/18 at 21:00; Stop 11/26/18 at 21:00; Status DC Levothyroxine Sodium (Synthroid) 25 mcg DAILY06 PO Last administered on 11/28/18at 05:30; Start 11/26/18 at 06:00 Lisinopril (Prinivil) 40 mg DAILY PO Last administered on 11/28/18 08:11; Start 11/26/18 at 09:00 Trazodone HCl (Desyrel) 50 mg QHS PO Last administered on 11/28/18at 19:50; Start 11/25/18 at 22:00 Acetaminophen (Tylenol) 650 mg PRN Q6HRS PRN PO PAIN / TEMP; Start 11/25/18 at 23:30; Status UNV Multi-Ingredient Ointment (Analgesic [place]) 1 katarzyna PRN QID PRN TP MUSCLE PAIN; Start 11/25/18 at 23:30 Al Hydroxide/Mg Hydroxide (Mylanta Plus Xs) 15 ml PRN AFTMEALHC PRN PO DYSPEPSIA; Start 11/25/18 at 23:30 Magnesium Hydroxide (Milk Of Magnesia) 2,400 mg PRN QHS PRN PO CONSTIPATION; Start 11/25/18 at 23:30 Rivaroxaban (Xarelto) 15 mg QHS PO Last administered on 11/28/18at 19:50; Start 11/26/18 at 21:00 Divalproex Sodium (Depakote Er) 750 mg HS PO Last administered on 11/28/18at 19:51; Start 11/28/18 at 21:00 Sertraline HCl (Zoloft) 50 mg DAILY PO Last administered on 11/28/18at 08:16; Start 11/28/18 at 09:00 Divalproex Sodium (Depakote Er) 250 mg 1X ONCE PO Last administered on 11/27/18at 12:08; Start 11/27/18 at 11:45; Stop 11/27/18 at 11:58; Status DC Medroxyprogesterone Acetate (Provera) 2.5 mg DAILY PO ; Start 11/29/18 at 09:00; Stop 12/01/18 at 09:01 Medroxyprogesterone Acetate (Provera) 5 mg DAILY PO ; Start 12/02/18 at 09:00 Active Scripts Active Reported Atorvastatin Calcium 20 Mg Tablet 20 Mg PO QHS Amlodipine Besylate 5 Mg Tablet 5 Mg PO DAILY Acetaminophen 160 Mg/5 Ml Solution 650 Mg PO PRN Q6HRS PRN Xarelto (Rivaroxaban) 10 Mg Tablet 20 Mg PO HS Trazodone Hcl 50 Mg Tablet 50 Mg PO HS Novolog Flexpen (Insulin Aspart) 100 Unit/1 Ml Insuln.pen 17 Unit SQ DAILYWSUP Novolog Flexpen (Insulin Aspart) 100 Unit/1 Ml Insuln.pen 10 Unit SQ DAILYBFRLUN Novolog Flexpen (Insulin Aspart) 100 Unit/1 Ml Insuln.pen 10 Unit SQ DAILYWBKFT Levothyroxine Sodium 25 Mcg Tablet 25 Mcg PO DAILYAC Levemir (Insulin Detemir) 100 Unit/1 Ml Vial 5 SQ DAILY Levemir (Insulin Detemir) 100 Unit/1 Ml Vial 45 Unit SQ HS Donepezil Hcl 5 Mg Tablet 5 Mg PO DAILY Divalproex Sodium Er (Divalproex Sodium) 500 Mg Tab.er.24h 500 Mg PO DAILY Citalopram Hbr (Citalopram Hydrobromide) 10 Mg Tablet 10 Mg PO DAILYBFRSUP Lisinopril 40 Mg Tablet 40 Mg PO DAILY I have reviewed the current psychotropics carefully including drug interactions. Risk benefit ratio favors no change other than as noted in my dictated progress note. Diagnosis: Problems: (1) Anxiety disorder (2) Dementia, vascular, with delusions (3) Dementia, vascular, with depression (4) Dementia in Alzheimer's disease with delusions (5) Dementia in Alzheimer's disease with depression (6) Impulse control disorder NEGIN CRUZ MD November 28, 2018 22:32
[2018-11-29] MEDS: LEVOTHYROXINE 25 MCG TABLET. PO SCH (05:15)
[2018-11-29 05:24] VITALS: BP 113/70
[2018-11-29] MEDS: SERTRALINE 50 MG TABLET. PO SCH (07:43)
[2018-11-29] MEDS: DONEPEZIL HCL 5 MG TABLET. PO SCH (07:43)
[2018-11-29] MEDS: INSULIN LISPRO 300 UNITS/3 ML INSULN.PEN. SQ SCH ×3 (07:44→17:36)
[2018-11-29] MEDS: amLODIPine BESYLATE 5 MG TABLET PO SCH (07:44)
[2018-11-29] MEDS: LISINOPRIL 20 MG TABLET PO SCH (07:44)
[2018-11-29] MEDS: INSULIN GLARGINE 300 UNITS/3 ML INSULN.PEN. SQ SCH ×2 (07:48→19:22)
[2018-11-29 15:26] VITALS: BP 103/64
[2018-11-29] MEDS: ATORVASTATIN CALCIUM 20 MG TABLET PO SCH (19:19)
[2018-11-29] MEDS: traZODone 50 MG TABLET. PO SCH (19:19)
[2018-11-29] MEDS: DIVALPROEX ER 250 MG TAB.ER.24H. PO SCH (19:19)
[2018-11-29] MEDS: RIVAROXABAN 15 MG TABLET. PO SCH (19:19)
--- NOTE | 2018-11-29 19:46 | PN ---
DATE: 11/27/2018 PSYCHIATRIC PROGRESS NOTE This late entry 11/27/2018 covers elements not covered in my initial note. SUBJECTIVE: I met with the patient at length in his room on the evening of 11/27/2018. The patient slept 4-3/4 hours previous evening. He has not been sexually inappropriate physically, but he has been winking at staff members who are females. REVIEW OF SYSTEMS: No CV, , pulmonary, eye, ENT system symptoms on review. Reliability poor. Remote memory is better than recent. MENTAL STATUS EXAM: Oriented to himself. Insight, judgment. Recent memory is impaired, remote is better. Language function intact. Attention span short. Mood and affect somewhat anxious, labile. LABORATORY DATA: Reviewed. IMPRESSION: Major neurocognitive disorder, Alzheimer, vascular with delusion, depression, behavioral disturbance. Rest unchanged. PLAN: Continue Zoloft 50 mg a day in place of the Celexa and Depakote ER was increased to 750 mg at bedtime with repeat labs and valproic acid level awaited. May consider adding Provera if sexually inappropriate behaviors persist. MAN Dulce CRUZ MD DR: JADA/archie JOB#: [id number] / [id number]
--- NOTE | 2018-11-29 20:33 | PN ---
DATE: 11/28/2018 PSYCHIATRIC PROGRESS NOTE This late entry 11/28/2018 covers elements not covered in my initial note. SUBJECTIVE: The patient was staffed at treatment team meeting earlier in the morning, seen individually at length in the evening. The patient slept reasonably the night before. Per staff members, he has been sexually inappropriate, held the arm of a female nursing staff, caressing her, blowing kisses to her. He was sexually inappropriate to one of the nursing aides as well. We will check a mini mental status exam or SLUMS scale to document cognitive decline. He used to work for the [email or web address] in the past. REVIEW OF SYSTEMS: No CV, , pulmonary, eye, ENT system symptoms on review. Reliability poor. MENTAL STATUS EXAM: Oriented to himself. Insight, judgment, recent and remote memory, attention, concentration, fund of knowledge poor, consistent with his diagnosis. I met with him at length in his room in the evening. LABORATORY DATA: Reviewed. IMPRESSION: Major neurocognitive disorder; Alzheimer, vascular with delusion, depression, behavioral disturbance; anxiety disorder, unspecified; impulse control disorder, unspecified. Rest unchanged. PLAN: Continue current psychotropic, start Provera 2.5 mg a day, increasing to 5 mg a day in 3 days if approved by Dr. Pierre from a medical standpoint. Rest unchanged. MAN Dulce CRUZ MD DR: JADA/archie JOB#: [id number] / [id number]
--- NOTE | 2018-11-29 22:43 | PDOC ---
Exam Note: Dwain Note: Please also refer to the separate dictated note~for this date of service dictated separately.~Patient seen individually. Discussed the patient with Nursing staff reviewed the chart.~Reviewed interim history and current functioning. Reviewed vital signs,~Labs/ Radiology~and current medications noted below. Continue current treatment with the changes noted in the dictated addendum note Assessment: Vital Signs: Vital Signs Date Time Temp Pulse Resp B/P (MAP) Pulse Ox O2 Delivery O2 Flow Rate FiO2 11/29/18 15:26 97.6 76 20 103/64 (77) 98 Room Air I&O Intake and Output 11/29/18 07:00 Intake Total 840 ml Balance 840 ml Intake Oral 840 ml Labs: Laboratory Tests Test 11/29/18 07:14 11/29/18 11:35 11/29/18 16:16 11/29/18 19:08 Glucose (Fingerstick) 88 mg/dL (70-99) 154 mg/dL (70-99) H 152 mg/dL (70-99) H 218 mg/dL (70-99) H Current Medications: Meds: Current Medications Rivaroxaban (Xarelto) 20 mg HS PO Last administered on 11/25/18at 22:08; Start 11/25/18 at 21:00; Stop 11/26/18 at 14:13; Status DC Insulin Glargine (Lantus) 45 units QHS SQ Last administered on 11/29/18at 19:22; Start 11/25/18 at 21:00 Atorvastatin Calcium (Lipitor) 20 mg QHS PO Last administered on 11/29/18at 19:19; Start 11/26/18 at 21:00 Citalopram Hydrobromide (CeleXA) 10 mg DAILYBFRSUP PO Last administered on 11/26/18at 16:02; Start 11/26/18 at 17:00; Stop 11/27/18 at 11:53; Status DC Rivaroxaban (Xarelto) 20 mg HS PO ; Start 11/26/18 at 21:00; Stop 11/26/18 at 21:00; Status DC Acetaminophen (Tylenol) 650 mg PRN Q6HRS PRN PO PAIN / TEMP; Start 11/25/18 at 22:00 Amlodipine Besylate (Norvasc) 5 mg DAILY PO Last administered on 11/29/18 07:44; Start 11/26/18 at 09:00 Divalproex Sodium (Depakote Er) 500 mg DAILY PO Last administered on 11/27/18at 09:00; Start 11/26/18 at 09:00; Stop 11/27/18 at 11:53; Status DC Donepezil HCl (Aricept) 5 mg DAILY PO Last administered on 11/29/18 07:43; Start 11/26/18 at 09:00 Insulin Human Lispro (HumaLOG) 10 units DAILYBFRLUN SQ Last administered on 11/29/18at 12:00; Start 11/26/18 at 11:30 Insulin Human Lispro (HumaLOG) 10 units DAILYWBKFT SQ Last administered on 11/27/18at 08:00; Start 11/26/18 at 08:00 Insulin Human Lispro (HumaLOG) 17 units DAILYWSUP SQ Last administered on 11/29/18at 17:36; Start 11/26/18 at 17:00 Insulin Glargine (Lantus) 5 units DAILY SQ Last administered on 11/29/18at 07:48; Start 11/26/18 at 09:00 Non-Formulary Medication (Insulin Detemir (Levemir)) 45 unit HS SQ ; Start 11/26/18 at 21:00; Stop 11/26/18 at 21:00; Status DC Levothyroxine Sodium (Synthroid) 25 mcg DAILY06 PO Last administered on 11/29/18 05:15; Start 11/26/18 at 06:00 Lisinopril (Prinivil) 40 mg DAILY PO Last administered on 11/29/18at 07:44; Start 11/26/18 at 09:00 Trazodone HCl (Desyrel) 50 mg QHS PO Last administered on 11/29/18 19:19; Start 11/25/18 at 22:00 Acetaminophen (Tylenol) 650 mg PRN Q6HRS PRN PO PAIN / TEMP; Start 11/25/18 at 23:30; Status UNV Multi-Ingredient Ointment (Analgesic [place]) 1 katarzyna PRN QID PRN TP MUSCLE PAIN; Start 11/25/18 at 23:30 Al Hydroxide/Mg Hydroxide (Mylanta Plus Xs) 15 ml PRN AFTMEALHC PRN PO DYSPEPSIA; Start 11/25/18 at 23:30 Magnesium Hydroxide (Milk Of Magnesia) 2,400 mg PRN QHS PRN PO CONSTIPATION; Start 11/25/18 at 23:30 Rivaroxaban (Xarelto) 15 mg QHS PO Last administered on 11/29/18at 19:19; Start 11/26/18 at 21:00 Divalproex Sodium (Depakote Er) 750 mg HS PO Last administered on 11/29/18at 19:19; Start 11/28/18 at 21:00 Sertraline HCl (Zoloft) 50 mg DAILY PO Last administered on 11/29/18at 07:43; Start 11/28/18 at 09:00 Divalproex Sodium (Depakote Er) 250 mg 1X ONCE PO Last administered on 11/27/18at 12:08; Start 11/27/18 at 11:45; Stop 11/27/18 at 11:58; Status DC Medroxyprogesterone Acetate (Provera) 2.5 mg DAILY PO Last administered on 11/29/18at 07:46; Start 11/29/18 at 09:00; Stop 12/01/18 at 09:01 Medroxyprogesterone Acetate (Provera) 5 mg DAILY PO ; Start 12/02/18 at 09:00 Active Scripts Active Reported Atorvastatin Calcium 20 Mg Tablet 20 Mg PO QHS Amlodipine Besylate 5 Mg Tablet 5 Mg PO DAILY Acetaminophen 160 Mg/5 Ml Solution 650 Mg PO PRN Q6HRS PRN Xarelto (Rivaroxaban) 10 Mg Tablet 20 Mg PO HS Trazodone Hcl 50 Mg Tablet 50 Mg PO HS Novolog Flexpen (Insulin Aspart) 100 Unit/1 Ml Insuln.pen 17 Unit SQ DAILYWSUP Novolog Flexpen (Insulin Aspart) 100 Unit/1 Ml Insuln.pen 10 Unit SQ DAILYBFRLUN Novolog Flexpen (Insulin Aspart) 100 Unit/1 Ml Insuln.pen 10 Unit SQ DAILYWBKFT Levothyroxine Sodium 25 Mcg Tablet 25 Mcg PO DAILYAC Levemir (Insulin Detemir) 100 Unit/1 Ml Vial 5 SQ DAILY Levemir (Insulin Detemir) 100 Unit/1 Ml Vial 45 Unit SQ HS Donepezil Hcl 5 Mg Tablet 5 Mg PO DAILY Divalproex Sodium Er (Divalproex Sodium) 500 Mg Tab.er.24h 500 Mg PO DAILY Citalopram Hbr (Citalopram Hydrobromide) 10 Mg Tablet 10 Mg PO DAILYBFRSUP Lisinopril 40 Mg Tablet 40 Mg PO DAILY I have reviewed the current psychotropics carefully including drug interactions. Risk benefit ratio favors no change other than as noted in my dictated progress note. Diagnosis: Problems: (1) Anxiety disorder (2) Dementia, vascular, with delusions (3) Dementia, vascular, with depression (4) Dementia in Alzheimer's disease with delusions (5) Dementia in Alzheimer's disease with depression (6) Impulse control disorder NEGIN CRUZ MD November 29, 2018 22:43
[2018-11-30] MEDS: LEVOTHYROXINE 25 MCG TABLET. PO SCH (04:58)
[2018-11-30 06:04] VITALS: BP 116/68
[2018-11-30 07:32] LABS: BASO % 1 % (0-3); EOS # 0.1 x10^3/uL (0.0-0.7); EOS % 2 % (0-3); HEMATOCRIT 40.1 % (39.0-53.0); LYMPH # 2.2 x10^3/uL (1.0-4.8); LYMPH % 35 % (24-48); MEAN CORPUSCULAR HEMOGLOBIN 31 pg (25-35); MEAN CORPUSCULAR HGB CONC 35 g/dL (31-37); MEAN CORPUSCULAR VOLUME 88 fL (79-100); MONO # 0.5 x10^3/uL (0.0-1.1); MONO % 8 % (0-9); NEUT # 3.5 x10^3uL (1.8-7.7); NEUT % 54 % (31-73); PLATELET COUNT 176 x10^3/uL (140-400); RED BLOOD COUNT 4.57 x10^6/uL (4.30-5.70); RED CELL DISTRIBUTION WIDTH 13.8 % (11.5-14.5); WHITE BLOOD COUNT 6.4 x10^3/uL (4.0-11.0)
[2018-11-30 07:58] LABS: ALBUMIN/GLOBULIN RATIO 0.9 (1.0-1.7); ALK PHOS 76 U/L (46-116); ALT (SGPT) 13 U/L (16-63); ANION GAP 8 (6-14); AST (SGOT) 11 U/L (15-37); BLOOD UREA NITROGEN 20 mg/dL (8-26); BUN/CREATININE RATIO 15 (6-20); CALCIUM 8.3 mg/dL (8.5-10.1); CARBON DIOXIDE 28 mmol/L (21-32); CHLORIDE 104 mmol/L (98-107); CREATININE 1.3 mg/dL (0.7-1.3); GFR 53.1; GLUCOSE 76 mg/dL (70-99); POTASSIUM 4.2 mmol/L (3.5-5.1); SODIUM 140 mmol/L (136-145); TOTAL BILIRUBIN 0.4 mg/dL (0.2-1.0); TOTAL PROTEIN 6.2 g/dL (6.4-8.2)
[2018-11-30] MEDS: DONEPEZIL HCL 5 MG TABLET. PO SCH (07:59)
[2018-11-30] MEDS: LISINOPRIL 20 MG TABLET PO SCH (07:59)
[2018-11-30] MEDS: SERTRALINE 50 MG TABLET. PO SCH (07:59)
[2018-11-30] MEDS: amLODIPine BESYLATE 5 MG TABLET PO SCH (07:59)
[2018-11-30] MEDS: INSULIN LISPRO 300 UNITS/3 ML INSULN.PEN. SQ SCH ×3 (08:00→17:29)
[2018-11-30 08:03] LABS: VAL ACID 36 mcg/mL (50-100)
[2018-11-30] MEDS: INSULIN GLARGINE 300 UNITS/3 ML INSULN.PEN. SQ SCH ×2 (08:03→19:27)
[2018-11-30 16:07] VITALS: BP 148/78
[2018-11-30] MEDS: RIVAROXABAN 15 MG TABLET. PO SCH (19:24)
[2018-11-30] MEDS: traZODone 50 MG TABLET. PO SCH (19:24)
[2018-11-30] MEDS: DIVALPROEX ER 250 MG TAB.ER.24H. PO SCH (19:24)
[2018-11-30] MEDS: ATORVASTATIN CALCIUM 20 MG TABLET PO SCH (19:25)
--- NOTE | 2018-11-30 23:08 | PDOC ---
Exam Note: Dwain Note: Please also refer to the separate dictated note~for this date of service dictated separately.~Patient seen individually. Discussed the patient with Nursing staff reviewed the chart.~Reviewed interim history and current functioning. Reviewed vital signs,~Labs/ Radiology~and current medications noted below. Continue current treatment with the changes noted in the dictated addendum note Assessment: Vital Signs: Vital Signs Date Time Temp Pulse Resp B/P (MAP) Pulse Ox O2 Delivery O2 Flow Rate FiO2 11/30/18 16:07 98.7 72 18 148/78 (101) 97 11/30/18 06:04 Room Air I&O Intake and Output 11/30/18 06:59 Intake Total 1440 ml Balance 1440 ml Intake Oral 1440 ml # Voids 1 Labs: Laboratory Tests Test 11/30/18 07:09 11/30/18 07:11 11/30/18 11:54 11/30/18 17:08 Glucose (Fingerstick) 82 mg/dL (70-99) 183 mg/dL (70-99) H 133 mg/dL (70-99) H White Blood Count 6.4 x10^3/uL (4.0-11.0) Red Blood Count 4.57 x10^6/uL (4.30-5.70) Hemoglobin 14.0 g/dL (13.0-17.5) Hematocrit 40.1 % (39.0-53.0) Mean Corpuscular Volume 88 fL (79-100) Mean Corpuscular Hemoglobin 31 pg (25-35) Mean Corpuscular Hemoglobin Concent 35 g/dL (31-37) Red Cell Distribution Width 13.8 % (11.5-14.5) Platelet Count 176 x10^3/uL (140-400) Neutrophils (%) (Auto) 54 % (31-73) Lymphocytes (%) (Auto) 35 % (24-48) Monocytes (%) (Auto) 8 % (0-9) Eosinophils (%) (Auto) 2 % (0-3) Basophils (%) (Auto) 1 % (0-3) Neutrophils # (Auto) 3.5 x10^3uL (1.8-7.7) Lymphocytes # (Auto) 2.2 x10^3/uL (1.0-4.8) Monocytes # (Auto) 0.5 x10^3/uL (0.0-1.1) Eosinophils # (Auto) 0.1 x10^3/uL (0.0-0.7) Basophils # (Auto) 0.0 x10^3/uL (0.0-0.2) Sodium Level 140 mmol/L (136-145) Potassium Level 4.2 mmol/L (3.5-5.1) Chloride Level 104 mmol/L (98-107) Carbon Dioxide Level 28 mmol/L (21-32) Anion Gap 8 (6-14) Blood Urea Nitrogen 20 mg/dL (8-26) Creatinine 1.3 mg/dL (0.7-1.3) Estimated GFR (Cockcroft-Gault) 53.1 BUN/Creatinine Ratio 15 (6-20) Glucose Level 76 mg/dL (70-99) Calcium Level 8.3 mg/dL (8.5-10.1) L Total Bilirubin 0.4 mg/dL (0.2-1.0) Aspartate Amino Transferase (AST) 11 U/L (15-37) L Alanine Aminotransferase (ALT) 13 U/L (16-63) L Alkaline Phosphatase 76 U/L (46-116) Total Protein 6.2 g/dL (6.4-8.2) L Albumin 3.0 g/dL (3.4-5.0) L Albumin/Globulin Ratio 0.9 (1.0-1.7) L Valproic Acid Level 36 mcg/mL (50-100) L Valproic Acid Last Dose Date 11/29/18 Valproic Acid Last Dose Time 2100 Test 11/30/18 19:18 Glucose (Fingerstick) 152 mg/dL (70-99) H Current Medications: Meds: Current Medications Rivaroxaban (Xarelto) 20 mg HS PO Last administered on 11/25/18at 22:08; Start 11/25/18 at 21:00; Stop 11/26/18 at 14:13; Status DC Insulin Glargine (Lantus) 45 units QHS SQ Last administered on 11/30/18 19:27; Start 11/25/18 at 21:00 Atorvastatin Calcium (Lipitor) 20 mg QHS PO Last administered on 11/30/18 19:25; Start 11/26/18 at 21:00 Citalopram Hydrobromide (CeleXA) 10 mg DAILYBFRSUP PO Last administered on 11/26/18 16:02; Start 11/26/18 at 17:00; Stop 11/27/18 at 11:53; Status DC Rivaroxaban (Xarelto) 20 mg HS PO ; Start 11/26/18 at 21:00; Stop 11/26/18 at 21:00; Status DC Acetaminophen (Tylenol) 650 mg PRN Q6HRS PRN PO PAIN / TEMP; Start 11/25/18 at 22:00 Amlodipine Besylate (Norvasc) 5 mg DAILY PO Last administered on 11/30/18 07:59; Start 11/26/18 at 09:00 Divalproex Sodium (Depakote Er) 500 mg DAILY PO Last administered on 11/27/18 09:00; Start 11/26/18 at 09:00; Stop 11/27/18 at 11:53; Status DC Donepezil HCl (Aricept) 5 mg DAILY PO Last administered on 11/30/18 07:59; Start 11/26/18 at 09:00 Insulin Human Lispro (HumaLOG) 10 units DAILYBFRLUN SQ Last administered on 11/30/18at 12:20; Start 11/26/18 at 11:30 Insulin Human Lispro (HumaLOG) 10 units DAILYWBKFT SQ Last administered on 11/27/18at 08:00; Start 11/26/18 at 08:00 Insulin Human Lispro (HumaLOG) 17 units DAILYWSUP SQ Last administered on 11/30/18at 17:29; Start 11/26/18 at 17:00 Insulin Glargine (Lantus) 5 units DAILY SQ Last administered on 11/30/18 08:03; Start 11/26/18 at 09:00 Non-Formulary Medication (Insulin Detemir (Levemir)) 45 unit HS SQ ; Start 11/26/18 at 21:00; Stop 11/26/18 at 21:00; Status DC Levothyroxine Sodium (Synthroid) 25 mcg DAILY06 PO Last administered on 11/30/18at 04:58; Start 11/26/18 at 06:00 Lisinopril (Prinivil) 40 mg DAILY PO Last administered on 11/30/18 07:59; Start 11/26/18 at 09:00 Trazodone HCl (Desyrel) 50 mg QHS PO Last administered on 11/30/18 19:24; Start 11/25/18 at 22:00 Acetaminophen (Tylenol) 650 mg PRN Q6HRS PRN PO PAIN / TEMP; Start 11/25/18 at 23:30; Status UNV Multi-Ingredient Ointment (Analgesic [place]) 1 katarzyna PRN QID PRN TP MUSCLE PAIN; Start 11/25/18 at 23:30 Al Hydroxide/Mg Hydroxide (Mylanta Plus Xs) 15 ml PRN AFTMEALHC PRN PO DYSPEPSIA; Start 11/25/18 at 23:30 Magnesium Hydroxide (Milk Of Magnesia) 2,400 mg PRN QHS PRN PO CONSTIPATION; Start 11/25/18 at 23:30 Rivaroxaban (Xarelto) 15 mg QHS PO Last administered on 11/30/18 19:24; Start 11/26/18 at 21:00 Divalproex Sodium (Depakote Er) 750 mg HS PO Last administered on 11/30/18 19:24; Start 11/28/18 at 21:00; Stop 11/30/18 at 20:48; Status DC Sertraline HCl (Zoloft) 50 mg DAILY PO Last administered on 11/30/18 07:59; Start 11/28/18 at 09:00 Divalproex Sodium (Depakote Er) 250 mg 1X ONCE PO Last administered on 11/27/18 12:08; Start 11/27/18 at 11:45; Stop 11/27/18 at 11:58; Status DC Medroxyprogesterone Acetate (Provera) 2.5 mg DAILY PO Last administered on 11/30/18 07:59; Start 11/29/18 at 09:00; Stop 12/01/18 at 09:01 Medroxyprogesterone Acetate (Provera) 5 mg DAILY PO ; Start 12/02/18 at 09:00 Divalproex Sodium (Depakote Er) 1,000 mg QHS PO ; Start 12/01/18 at 21:00 Active Scripts Active Reported Atorvastatin Calcium 20 Mg Tablet 20 Mg PO QHS Amlodipine Besylate 5 Mg Tablet 5 Mg PO DAILY Acetaminophen 160 Mg/5 Ml Solution 650 Mg PO PRN Q6HRS PRN Xarelto (Rivaroxaban) 10 Mg Tablet 20 Mg PO HS Trazodone Hcl 50 Mg Tablet 50 Mg PO HS Novolog Flexpen (Insulin Aspart) 100 Unit/1 Ml Insuln.pen 17 Unit SQ DAILYWSUP Novolog Flexpen (Insulin Aspart) 100 Unit/1 Ml Insuln.pen 10 Unit SQ DAILYBFRLUN Novolog Flexpen (Insulin Aspart) 100 Unit/1 Ml Insuln.pen 10 Unit SQ DAILYWBKFT Levothyroxine Sodium 25 Mcg Tablet 25 Mcg PO DAILYAC Levemir (Insulin Detemir) 100 Unit/1 Ml Vial 5 SQ DAILY Levemir (Insulin Detemir) 100 Unit/1 Ml Vial 45 Unit SQ HS Donepezil Hcl 5 Mg Tablet 5 Mg PO DAILY Divalproex Sodium Er (Divalproex Sodium) 500 Mg Tab.er.24h 500 Mg PO DAILY Citalopram Hbr (Citalopram Hydrobromide) 10 Mg Tablet 10 Mg PO DAILYBFRSUP Lisinopril 40 Mg Tablet 40 Mg PO DAILY I have reviewed the current psychotropics carefully including drug interactions. Risk benefit ratio favors no change other than as noted in my dictated progress note. Diagnosis: Problems: (1) Anxiety disorder (2) Dementia, vascular, with delusions (3) Dementia, vascular, with depression (4) Dementia in Alzheimer's disease with delusions (5) Dementia in Alzheimer's disease with depression (6) Impulse control disorder NEGIN CRUZ MD November 30, 2018 23:08
[2018-12-01 05:58] VITALS: BP 121/69
[2018-12-01] MEDS: LEVOTHYROXINE 25 MCG TABLET. PO SCH (06:26)
[2018-12-01] MEDS: INSULIN GLARGINE 300 UNITS/3 ML INSULN.PEN. SQ SCH ×2 (07:56→19:46)
[2018-12-01] MEDS: DONEPEZIL HCL 5 MG TABLET. PO SCH (08:03)
[2018-12-01] MEDS: LISINOPRIL 20 MG TABLET PO SCH (08:03)
[2018-12-01] MEDS: SERTRALINE 50 MG TABLET. PO SCH (08:04)
[2018-12-01] MEDS: amLODIPine BESYLATE 5 MG TABLET PO SCH (08:04)
[2018-12-01] MEDS: INSULIN LISPRO 300 UNITS/3 ML INSULN.PEN. SQ SCH ×3 (08:05→17:00)
[2018-12-01 15:32] VITALS: BP 130/78
[2018-12-01] MEDS: RIVAROXABAN 15 MG TABLET. PO SCH (19:42)
[2018-12-01] MEDS: ATORVASTATIN CALCIUM 20 MG TABLET PO SCH (19:42)
[2018-12-01] MEDS: traZODone 50 MG TABLET. PO SCH (19:42)
[2018-12-01] MEDS: DIVALPROEX ER 500 MG TAB.ER.24H PO SCH (19:44)
--- NOTE | 2018-12-01 22:33 | PDOC ---
Exam Note: Dwain Note: Please also refer to the separate dictated note~for this date of service dictated separately.~Patient seen individually. Discussed the patient with Nursing staff reviewed the chart.~Reviewed interim history and current functioning. Reviewed vital signs,~Labs/ Radiology~and current medications noted below. Continue current treatment with the changes noted in the dictated addendum note Assessment: Vital Signs: Vital Signs Date Time Temp Pulse Resp B/P (MAP) Pulse Ox O2 Delivery O2 Flow Rate FiO2 12/01/18 15:32 97.4 70 16 130/78 (95) 98 Room Air I&O Intake and Output 12/01/18 07:00 Intake Total 1205 ml Balance 1205 ml Intake Oral 1205 ml # Bowel Movements 1 Labs: Laboratory Tests Test 12/01/18 07:26 12/01/18 12:25 12/01/18 16:36 12/01/18 19:24 Glucose (Fingerstick) 99 mg/dL (70-99) 149 mg/dL (70-99) H 128 mg/dL (70-99) H 270 mg/dL (70-99) H Current Medications: Meds: Current Medications Rivaroxaban (Xarelto) 20 mg HS PO Last administered on 11/25/18at 22:08; Start 11/25/18 at 21:00; Stop 11/26/18 at 14:13; Status DC Insulin Glargine (Lantus) 45 units QHS SQ Last administered on 12/01/18at 19:46; Start 11/25/18 at 21:00 Atorvastatin Calcium (Lipitor) 20 mg QHS PO Last administered on 12/01/18at 19:42; Start 11/26/18 at 21:00 Citalopram Hydrobromide (CeleXA) 10 mg DAILYBFRSUP PO Last administered on 11/26/18at 16:02; Start 11/26/18 at 17:00; Stop 11/27/18 at 11:53; Status DC Rivaroxaban (Xarelto) 20 mg HS PO ; Start 11/26/18 at 21:00; Stop 11/26/18 at 21:00; Status DC Acetaminophen (Tylenol) 650 mg PRN Q6HRS PRN PO PAIN / TEMP; Start 11/25/18 at 22:00 Amlodipine Besylate (Norvasc) 5 mg DAILY PO Last administered on 12/01/18 08:04; Start 11/26/18 at 09:00 Divalproex Sodium (Depakote Er) 500 mg DAILY PO Last administered on 11/27/18 09:00; Start 11/26/18 at 09:00; Stop 11/27/18 at 11:53; Status DC Donepezil HCl (Aricept) 5 mg DAILY PO Last administered on 12/01/18 08:03; Start 11/26/18 at 09:00 Insulin Human Lispro (HumaLOG) 10 units DAILYBFRLUN SQ Last administered on 12/01/18 11:30; Start 11/26/18 at 11:30 Insulin Human Lispro (HumaLOG) 10 units DAILYWBKFT SQ Last administered on 12/01/18 08:05; Start 11/26/18 at 08:00 Insulin Human Lispro (HumaLOG) 17 units DAILYWSUP SQ Last administered on 11/30/18 17:29; Start 11/26/18 at 17:00 Insulin Glargine (Lantus) 5 units DAILY SQ Last administered on 12/01/18 07:56; Start 11/26/18 at 09:00 Non-Formulary Medication (Insulin Detemir (Levemir)) 45 unit HS SQ ; Start 11/26/18 at 21:00; Stop 11/26/18 at 21:00; Status DC Levothyroxine Sodium (Synthroid) 25 mcg DAILY06 PO Last administered on 12/01/18 06:26; Start 11/26/18 at 06:00 Lisinopril (Prinivil) 40 mg DAILY PO Last administered on 12/01/18 08:03; Start 11/26/18 at 09:00 Trazodone HCl (Desyrel) 50 mg QHS PO Last administered on 12/01/18 19:42; Start 11/25/18 at 22:00 Acetaminophen (Tylenol) 650 mg PRN Q6HRS PRN PO PAIN / TEMP; Start 11/25/18 at 23:30; Status UNV Multi-Ingredient Ointment (Analgesic [place]) 1 katarzyna PRN QID PRN TP MUSCLE PAIN; Start 11/25/18 at 23:30 Al Hydroxide/Mg Hydroxide (Mylanta Plus Xs) 15 ml PRN AFTMEALHC PRN PO DYSPEPSIA; Start 11/25/18 at 23:30 Magnesium Hydroxide (Milk Of Magnesia) 2,400 mg PRN QHS PRN PO CONSTIPATION; Start 11/25/18 at 23:30 Rivaroxaban (Xarelto) 15 mg QHS PO Last administered on 12/01/18at 19:42; Start 11/26/18 at 21:00 Divalproex Sodium (Depakote Er) 750 mg HS PO Last administered on 11/30/18at 19:24; Start 11/28/18 at 21:00; Stop 11/30/18 at 20:48; Status DC Sertraline HCl (Zoloft) 50 mg DAILY PO Last administered on 12/01/18at 08:04; Start 11/28/18 at 09:00 Divalproex Sodium (Depakote Er) 250 mg 1X ONCE PO Last administered on 11/27/18at 12:08; Start 11/27/18 at 11:45; Stop 11/27/18 at 11:58; Status DC Medroxyprogesterone Acetate (Provera) 2.5 mg DAILY PO Last administered on 12/01/18at 08:03; Start 11/29/18 at 09:00; Stop 12/01/18 at 09:01; Status DC Medroxyprogesterone Acetate (Provera) 5 mg DAILY PO ; Start 12/02/18 at 09:00 Divalproex Sodium (Depakote Er) 1,000 mg QHS PO Last administered on 12/01/18at 19:44; Start 12/01/18 at 21:00 Active Scripts Active Reported Atorvastatin Calcium 20 Mg Tablet 20 Mg PO QHS Amlodipine Besylate 5 Mg Tablet 5 Mg PO DAILY Acetaminophen 160 Mg/5 Ml Solution 650 Mg PO PRN Q6HRS PRN Xarelto (Rivaroxaban) 10 Mg Tablet 20 Mg PO HS Trazodone Hcl 50 Mg Tablet 50 Mg PO HS Novolog Flexpen (Insulin Aspart) 100 Unit/1 Ml Insuln.pen 17 Unit SQ DAILYWSUP Novolog Flexpen (Insulin Aspart) 100 Unit/1 Ml Insuln.pen 10 Unit SQ DAILYBFRLUN Novolog Flexpen (Insulin Aspart) 100 Unit/1 Ml Insuln.pen 10 Unit SQ DAILYWBKFT Levothyroxine Sodium 25 Mcg Tablet 25 Mcg PO DAILYAC Levemir (Insulin Detemir) 100 Unit/1 Ml Vial 5 SQ DAILY Levemir (Insulin Detemir) 100 Unit/1 Ml Vial 45 Unit SQ HS Donepezil Hcl 5 Mg Tablet 5 Mg PO DAILY Divalproex Sodium Er (Divalproex Sodium) 500 Mg Tab.er.24h 500 Mg PO DAILY Citalopram Hbr (Citalopram Hydrobromide) 10 Mg Tablet 10 Mg PO DAILYBFRSUP Lisinopril 40 Mg Tablet 40 Mg PO DAILY I have reviewed the current psychotropics carefully including drug interactions. Risk benefit ratio favors no change other than as noted in my dictated progress note. Diagnosis: Problems: (1) Anxiety disorder (2) Dementia, vascular, with delusions (3) Dementia, vascular, with depression (4) Dementia in Alzheimer's disease with delusions (5) Dementia in Alzheimer's disease with depression (6) Impulse control disorder NEGIN CRUZ MD December 01, 2018 22:33
[2018-12-02] MEDS: LEVOTHYROXINE 25 MCG TABLET. PO SCH (01:52)
[2018-12-02 05:52] VITALS: BP 94/52
[2018-12-02] MEDS: DONEPEZIL HCL 5 MG TABLET. PO SCH (07:37)
[2018-12-02] MEDS: SERTRALINE 50 MG TABLET. PO SCH (07:37)
[2018-12-02] MEDS: medroxyPROGESTERone 5 MG TABLET PO SCH (07:53)
[2018-12-02] MEDS: INSULIN LISPRO 300 UNITS/3 ML INSULN.PEN. SQ SCH ×3 (08:00→17:25)
[2018-12-02] MEDS: amLODIPine BESYLATE 5 MG TABLET PO SCH (14:47)
[2018-12-02] MEDS: LISINOPRIL 20 MG TABLET PO SCH (14:47)
[2018-12-02 15:14] VITALS: BP 150/72
[2018-12-02 15:15] VITALS: BP 144/79
[2018-12-02] MEDS: INSULIN GLARGINE 300 UNITS/3 ML INSULN.PEN. SQ SCH ×2 (17:22→19:13)
--- NOTE | 2018-12-02 19:03 | PN ---
DATE: 11/29/2018 PSYCHIATRIC PROGRESS NOTE This late entry 11/29/2018 covers elements not covered in my initial note. SUBJECTIVE: I met with the patient in the evening. The patient slept 7 hours previous night. He has not been sexually inappropriate, but remains confused, withdrawn to his room. Remains somewhat anxious. I met with him individually at some length in his room. REVIEW OF SYSTEMS: Ambulation impaired, in wheelchair, has a right leg below-knee amputation. No CV, , pulmonary, eye, ENT system symptoms on review. Reliability poor. MENTAL STATUS EXAM: Oriented to himself. Insight, judgment, recent and remote memory, attention, concentration, fund of knowledge poor, consistent with his diagnosis mentioned in my initial note. PLAN: Continue current psychotropics. Check labs and valproic acid level on 11/30/2018 and then adjust Depakote thereafter. MAN Dulce CRUZ MD DR: JADA/archie JOB#: [id number] / [id number]
[2018-12-02] MEDS: DIVALPROEX ER 500 MG TAB.ER.24H PO SCH (19:10)
[2018-12-02] MEDS: RIVAROXABAN 15 MG TABLET. PO SCH (19:10)
[2018-12-02] MEDS: ATORVASTATIN CALCIUM 20 MG TABLET PO SCH (19:10)
[2018-12-02] MEDS: traZODone 50 MG TABLET. PO SCH (19:10)
--- NOTE | 2018-12-02 19:48 | PN ---
DATE: 11/30/2018 PSYCHIATRIC PROGRESS NOTE This late entry 11/30/2018 covers elements not covered in my initial note. SUBJECTIVE: I met with the patient in the evening. The patient has been calm, cooperative, slept 6-1/4 hours previous night, winking at female nursing staff. Valproic acid level is 36, subtherapeutic on Depakote ER 750 mg at bedtime. REVIEW OF SYSTEMS: Ambulation impaired, in wheelchair with right below-knee amputation. No CV, , pulmonary, eye system symptoms on review. He is hard of hearing. MENTAL STATUS EXAM: Oriented to himself. Insight, judgment, recent and remote memory, attention, concentration, fund of knowledge poor, consistent with his diagnosis mentioned in my initial note. PLAN: Increase Depakote ER to 1000 mg at bedtime. Check CBC, CMP, valproic acid level in 3 days. Rest unchanged per initial note. MAN Dulce CRUZ MD DR: JADA/archie JOB#: [id number] / [id number]
--- NOTE | 2018-12-02 19:49 | PN ---
DATE: 12/01/2018 PSYCHIATRIC PROGRESS NOTE This late entry 12/01/2018 covers elements not covered in my initial note. SUBJECTIVE: I met with the patient in the evening. The patient slept 6-1/2 hours previous night. He has been confused, hard of hearing. REVIEW OF SYSTEMS: Impaired ambulation in wheelchair with the right below-knee amputation. No CV, , pulmonary, eye system symptoms on review. MENTAL STATUS EXAM: Oriented to himself. Insight, judgment, recent and remote memory, attention, concentration, fund of knowledge poor, consistent with his diagnosis. PLAN: Continue current psychotropics. Depakote has been increased. Follow labs level, adjust as indicated. MAN Dulce CRUZ MD DR: JADA/archie JOB#: [id number] / [id number]
--- NOTE | 2018-12-02 21:42 | PDOC ---
Exam Note: Dwain Note: Please also refer to the separate dictated note~for this date of service dictated separately.~Patient seen individually. Discussed the patient with Nursing staff reviewed the chart.~Reviewed interim history and current functioning. Reviewed vital signs,~Labs/ Radiology~and current medications noted below. Continue current treatment with the changes noted in the dictated addendum note Assessment: Vital Signs: Vital Signs Date Time Temp Pulse Resp B/P (MAP) Pulse Ox O2 Delivery O2 Flow Rate FiO2 12/02/18 15:15 97.6 83 16 144/79 (100) 98 12/01/18 15:32 Room Air I&O Intake and Output 12/02/18 06:59 Intake Total 1080 ml Balance 1080 ml Intake Oral 1080 ml Labs: Laboratory Tests Test 12/02/18 07:47 12/02/18 11:43 12/02/18 16:50 12/02/18 19:00 Glucose (Fingerstick) 59 mg/dL (70-99) L 168 mg/dL (70-99) H 206 mg/dL (70-99) H 236 mg/dL (70-99) H Current Medications: Meds: Current Medications Rivaroxaban (Xarelto) 20 mg HS PO Last administered on 11/25/18at 22:08; Start 11/25/18 at 21:00; Stop 11/26/18 at 14:13; Status DC Insulin Glargine (Lantus) 45 units QHS SQ Last administered on 12/02/18at 19:13; Start 11/25/18 at 21:00 Atorvastatin Calcium (Lipitor) 20 mg QHS PO Last administered on 12/02/18at 19:10; Start 11/26/18 at 21:00 Citalopram Hydrobromide (CeleXA) 10 mg DAILYBFRSUP PO Last administered on 11/26/18at 16:02; Start 11/26/18 at 17:00; Stop 11/27/18 at 11:53; Status DC Rivaroxaban (Xarelto) 20 mg HS PO ; Start 11/26/18 at 21:00; Stop 11/26/18 at 21:00; Status DC Acetaminophen (Tylenol) 650 mg PRN Q6HRS PRN PO PAIN / TEMP; Start 11/25/18 at 22:00 Amlodipine Besylate (Norvasc) 5 mg DAILY PO Last administered on 12/02/18 14:4 7; Start 11/26/18 at 09:00 Divalproex Sodium (Depakote Er) 500 mg DAILY PO Last administered on 11/27/18 09:00; Start 11/26/18 at 09:00; Stop 11/27/18 at 11:53; Status DC Donepezil HCl (Aricept) 5 mg DAILY PO Last administered on 12/02/18 07:37; Start 11/26/18 at 09:00 Insulin Human Lispro (HumaLOG) 10 units DAILYBFRLUN SQ Last administered on 12/02/18 17:24; Start 11/26/18 at 11:30 Insulin Human Lispro (HumaLOG) 10 units DAILYWBKFT SQ Last administered on 12/01/18 08:05; Start 11/26/18 at 08:00 Insulin Human Lispro (HumaLOG) 17 units DAILYWSUP SQ Last administered on 12/02/18 17:25; Start 11/26/18 at 17:00 Insulin Glargine (Lantus) 5 units DAILY SQ Last administered on 12/02/18 17:22; Start 11/26/18 at 09:00 Non-Formulary Medication (Insulin Detemir (Levemir)) 45 unit HS SQ ; Start 11/26/18 at 21:00; Stop 11/26/18 at 21:00; Status DC Levothyroxine Sodium (Synthroid) 25 mcg DAILY06 PO Last administered on 12/02/18 01:52; Start 11/26/18 at 06:00 Lisinopril (Prinivil) 40 mg DAILY PO Last administered on 12/02/18 14:47; Start 11/26/18 at 09:00 Trazodone HCl (Desyrel) 50 mg QHS PO Last administered on 12/02/18 19:10; Start 11/25/18 at 22:00 Acetaminophen (Tylenol) 650 mg PRN Q6HRS PRN PO PAIN / TEMP; Start 11/25/18 at 23:30; Status UNV Multi-Ingredient Ointment (Analgesic [place]) 1 katarzyna PRN QID PRN TP MUSCLE PAIN; Start 11/25/18 at 23:30 Al Hydroxide/Mg Hydroxide (Mylanta Plus Xs) 15 ml PRN AFTMEALHC PRN PO DYSPEPSIA; Start 11/25/18 at 23:30 Magnesium Hydroxide (Milk Of Magnesia) 2,400 mg PRN QHS PRN PO CONSTIPATION; Start 11/25/18 at 23:30 Rivaroxaban (Xarelto) 15 mg QHS PO Last administered on 12/02/18 19:10; Start 11/26/18 at 21:00 Divalproex Sodium (Depakote Er) 750 mg HS PO Last administered on 11/30/18 19:24; Start 11/28/18 at 21:00; Stop 11/30/18 at 20:48; Status DC Sertraline HCl (Zoloft) 50 mg DAILY PO Last administered on 12/02/18 07:37; Start 11/28/18 at 09:00 Divalproex Sodium (Depakote Er) 250 mg 1X ONCE PO Last administered on 11/27/18at 12:08; Start 11/27/18 at 11:45; Stop 11/27/18 at 11:58; Status DC Medroxyprogesterone Acetate (Provera) 2.5 mg DAILY PO Last administered on 12/01/18 08:03; Start 11/29/18 at 09:00; Stop 12/01/18 at 09:01; Status DC Medroxyprogesterone Acetate (Provera) 5 mg DAILY PO Last administered on 12/02/18at 07:53; Start 12/02/18 at 09:00 Divalproex Sodium (Depakote Er) 1,000 mg QHS PO Last administered on 12/02/18at 19:10; Start 12/01/18 at 21:00 Trazodone HCl (Desyrel) 50 mg PRN QHS PRN PO INSOMNIA; Start 12/02/18 at 17:45 Active Scripts Active Reported Atorvastatin Calcium 20 Mg Tablet 20 Mg PO QHS Amlodipine Besylate 5 Mg Tablet 5 Mg PO DAILY Acetaminophen 160 Mg/5 Ml Solution 650 Mg PO PRN Q6HRS PRN Xarelto (Rivaroxaban) 10 Mg Tablet 20 Mg PO HS Trazodone Hcl 50 Mg Tablet 50 Mg PO HS Novolog Flexpen (Insulin Aspart) 100 Unit/1 Ml Insuln.pen 17 Unit SQ DAILYWSUP Novolog Flexpen (Insulin Aspart) 100 Unit/1 Ml Insuln.pen 10 Unit SQ DAILYBFRLUN Novolog Flexpen (Insulin Aspart) 100 Unit/1 Ml Insuln.pen 10 Unit SQ DAILYWBKFT Levothyroxine Sodium 25 Mcg Tablet 25 Mcg PO DAILYAC Levemir (Insulin Detemir) 100 Unit/1 Ml Vial 5 SQ DAILY Levemir (Insulin Detemir) 100 Unit/1 Ml Vial 45 Unit SQ HS Donepezil Hcl 5 Mg Tablet 5 Mg PO DAILY Divalproex Sodium Er (Divalproex Sodium) 500 Mg Tab.er.24h 500 Mg PO DAILY Citalopram Hbr (Citalopram Hydrobromide) 10 Mg Tablet 10 Mg PO DAILYBFRSUP Lisinopril 40 Mg Tablet 40 Mg PO DAILY I have reviewed the current psychotropics carefully including drug interactions. Risk benefit ratio favors no change other than as noted in my dictated progress note. Diagnosis: Problems: (1) Anxiety disorder (2) Dementia, vascular, with delusions (3) Dementia, vascular, with depression (4) Dementia in Alzheimer's disease with delusions (5) Dementia in Alzheimer's disease with depression (6) Impulse control disorder NEGIN CRUZ MD December 02, 2018 21:42
[2018-12-02] MEDS: traZODone 50 MG TABLET. PO PRN (23:28)
[2018-12-03] MEDS: LEVOTHYROXINE 25 MCG TABLET. PO SCH (05:01)
[2018-12-03 06:02] VITALS: BP 117/66
[2018-12-03] MEDS: amLODIPine BESYLATE 5 MG TABLET PO SCH (07:50)
[2018-12-03] MEDS: DONEPEZIL HCL 5 MG TABLET. PO SCH (07:51)
[2018-12-03] MEDS: LISINOPRIL 20 MG TABLET PO SCH (07:51)
[2018-12-03] MEDS: SERTRALINE 50 MG TABLET. PO SCH (07:51)
[2018-12-03] MEDS: medroxyPROGESTERone 5 MG TABLET PO SCH (07:51)
[2018-12-03] MEDS: INSULIN GLARGINE 300 UNITS/3 ML INSULN.PEN. SQ SCH ×2 (07:52→19:31)
[2018-12-03] MEDS: INSULIN LISPRO 300 UNITS/3 ML INSULN.PEN. SQ SCH ×3 (07:53→17:28)
[2018-12-03 16:11] VITALS: BP 138/78
--- NOTE | 2018-12-03 18:19 | PN ---
DATE: 12/02/2018 PSYCHIATRIC PROGRESS NOTE This late entry 12/02/2018 covers elements not covered in my initial note. SUBJECTIVE: I met with the patient in the evening of 12/02/2018 in his room. He slept 3-1/4 hours previous night. During the day, he has been doing "okay" per nursing report. He has been somewhat withdrawn, sleeps off and on during the day, but did not sleep well at night and we will add p.r.n. trazodone 50 mg to his scheduled dosage to help with this. REVIEW OF SYSTEMS: Ambulation impaired, in wheelchair due to right below knee amputation and is hard of hearing. No CV, , pulmonary, eye system symptoms on review. MENTAL STATUS EXAM: Oriented to himself. Insight, judgment, recent and remote memory, attention, concentration, fund of knowledge poor, consistent with his diagnosis mentioned in my initial note. PLAN: No change from initial note. MAN Dulce CRUZ MD DR: JADA/archie JOB#: [id number] / [id number]
[2018-12-03] MEDS: traZODone 50 MG TABLET. PO SCH (19:30)
[2018-12-03] MEDS: RIVAROXABAN 15 MG TABLET. PO SCH (19:30)
[2018-12-03] MEDS: ATORVASTATIN CALCIUM 20 MG TABLET PO SCH (19:30)
[2018-12-03] MEDS: traZODone 50 MG TABLET. PO PRN (19:32)
[2018-12-03] MEDS: DIVALPROEX ER 500 MG TAB.ER.24H PO SCH (19:32)
[2018-12-03] MEDS: MIRTAZAPINE 7.5 MG TABLET. PO SCH (19:32)
--- NOTE | 2018-12-03 22:26 | PDOC ---
Exam Note: Dwain Note: Please also refer to the separate dictated note~for this date of service dictated separately.~Patient seen individually. Discussed the patient with Nursing staff reviewed the chart.~Reviewed interim history and current functioning. Reviewed vital signs,~Labs/ Radiology~and current medications noted below. Continue current treatment with the changes noted in the dictated addendum note Assessment: Vital Signs: Vital Signs Date Time Temp Pulse Resp B/P (MAP) Pulse Ox O2 Delivery O2 Flow Rate FiO2 12/03/18 16:11 98.1 77 18 138/78 (98) 95 12/01/18 15:32 Room Air I&O Intake and Output 12/03/18 07:00 Intake Total 1440 ml Output Total 800 ml Balance 640 ml Intake Oral 1440 ml Output Urine Total 800 ml Labs: Laboratory Tests Test 12/03/18 07:19 12/03/18 11:45 12/03/18 17:11 12/03/18 19:14 Glucose (Fingerstick) 116 mg/dL (70-99) H 93 mg/dL (70-99) 122 mg/dL (70-99) H 190 mg/dL (70-99) H Current Medications: Meds: Current Medications Rivaroxaban (Xarelto) 20 mg HS PO Last administered on 11/25/18at 22:08; Start 11/25/18 at 21:00; Stop 11/26/18 at 14:13; Status DC Insulin Glargine (Lantus) 45 units QHS SQ Last administered on 12/03/18at 19:31; Start 11/25/18 at 21:00 Atorvastatin Calcium (Lipitor) 20 mg QHS PO Last administered on 12/03/18at 19:30; Start 11/26/18 at 21:00 Citalopram Hydrobromide (CeleXA) 10 mg DAILYBFRSUP PO Last administered on 11/26/18at 16:02; Start 11/26/18 at 17:00; Stop 11/27/18 at 11:53; Status DC Rivaroxaban (Xarelto) 20 mg HS PO ; Start 11/26/18 at 21:00; Stop 11/26/18 at 21:00; Status DC Acetaminophen (Tylenol) 650 mg PRN Q6HRS PRN PO PAIN / TEMP; Start 11/25/18 at 22:00 Amlodipine Besylate (Norvasc) 5 mg DAILY PO Last administered on 12/03/18 07:50; Start 11/26/18 at 09:00 Divalproex Sodium (Depakote Er) 500 mg DAILY PO Last administered on 11/27/18 09:00; Start 11/26/18 at 09:00; Stop 11/27/18 at 11:53; Status DC Donepezil HCl (Aricept) 5 mg DAILY PO Last administered on 12/03/18 07:51; Start 11/26/18 at 09:00 Insulin Human Lispro (HumaLOG) 10 units DAILYBFRLUN SQ Last administered on 12/03/18at 12:09; Start 11/26/18 at 11:30 Insulin Human Lispro (HumaLOG) 10 units DAILYWBKFT SQ Last administered on 07:53; Start 11/26/18 at 08:00 Insulin Human Lispro (HumaLOG) 17 units DAILYWSUP SQ Last administered on 12/03/18at 17:28; Start 11/26/18 at 17:00 Insulin Glargine (Lantus) 5 units DAILY SQ Last administered on 12/03/18 07:52; Start 11/26/18 at 09:00 Non-Formulary Medication (Insulin Detemir (Levemir)) 45 unit HS SQ ; Start 11/26/18 at 21:00; Stop 11/26/18 at 21:00; Status DC Levothyroxine Sodium (Synthroid) 25 mcg DAILY06 PO Last administered on 12/03/18 05:01; Start 11/26/18 at 06:00 Lisinopril (Prinivil) 40 mg DAILY PO Last administered on 12/03/18 07:51; Start 11/26/18 at 09:00 Trazodone HCl (Desyrel) 50 mg QHS PO Last administered on 12/03/18 19:30; Start 11/25/18 at 22:00 Acetaminophen (Tylenol) 650 mg PRN Q6HRS PRN PO PAIN / TEMP; Start 11/25/18 at 23:30; Status UNV Multi-Ingredient Ointment (Analgesic [place]) 1 katarzyna PRN QID PRN TP MUSCLE PAIN; Start 11/25/18 at 23:30 Al Hydroxide/Mg Hydroxide (Mylanta Plus Xs) 15 ml PRN AFTMEALHC PRN PO DYSPEPSIA; Start 11/25/18 at 23:30 Magnesium Hydroxide (Milk Of Magnesia) 2,400 mg PRN QHS PRN PO CONSTIPATION; Start 11/25/18 at 23:30 Rivaroxaban (Xarelto) 15 mg QHS PO Last administered on 12/03/18 19:30; Start 11/26/18 at 21:00 Divalproex Sodium (Depakote Er) 750 mg HS PO Last administered on 11/30/18 19:24; Start 11/28/18 at 21:00; Stop 11/30/18 at 20:48; Status DC Sertraline HCl (Zoloft) 50 mg DAILY PO Last administered on 12/03/18 07:51; Start 11/28/18 at 09:00 Divalproex Sodium (Depakote Er) 250 mg 1X ONCE PO Last administered on 11/27/18 12:08; Start 11/27/18 at 11:45; Stop 11/27/18 at 11:58; Status DC Medroxyprogesterone Acetate (Provera) 2.5 mg DAILY PO Last administered on 12/01/18 08:03; Start 11/29/18 at 09:00; Stop 12/01/18 at 09:01; Status DC Medroxyprogesterone Acetate (Provera) 5 mg DAILY PO Last administered on 12/03/18 07:51; Start 12/02/18 at 09:00 Divalproex Sodium (Depakote Er) 1,000 mg QHS PO Last administered on 12/03/18 19:32; Start 12/01/18 at 21:00 Trazodone HCl (Desyrel) 50 mg PRN QHS PRN PO INSOMNIA Last administered on 12/03/18 19:32; Start 12/02/18 at 17:45 Mirtazapine (Remeron) 7.5 mg QHS PO Last administered on 12/03/18 19:32; Start 12/03/18 at 21:00 Active Scripts Active Reported Atorvastatin Calcium 20 Mg Tablet 20 Mg PO QHS Amlodipine Besylate 5 Mg Tablet 5 Mg PO DAILY Acetaminophen 160 Mg/5 Ml Solution 650 Mg PO PRN Q6HRS PRN Xarelto (Rivaroxaban) 10 Mg Tablet 20 Mg PO HS Trazodone Hcl 50 Mg Tablet 50 Mg PO HS Novolog Flexpen (Insulin Aspart) 100 Unit/1 Ml Insuln.pen 17 Unit SQ DAILYWSUP Novolog Flexpen (Insulin Aspart) 100 Unit/1 Ml Insuln.pen 10 Unit SQ DAILYBFRLUN Novolog Flexpen (Insulin Aspart) 100 Unit/1 Ml Insuln.pen 10 Unit SQ DAILYWBKFT Levothyroxine Sodium 25 Mcg Tablet 25 Mcg PO DAILYAC Levemir (Insulin Detemir) 100 Unit/1 Ml Vial 5 SQ DAILY Levemir (Insulin Detemir) 100 Unit/1 Ml Vial 45 Unit SQ HS Donepezil Hcl 5 Mg Tablet 5 Mg PO DAILY Divalproex Sodium Er (Divalproex Sodium) 500 Mg Tab.er.24h 500 Mg PO DAILY Citalopram Hbr (Citalopram Hydrobromide) 10 Mg Tablet 10 Mg PO DAILYBFRSUP Lisinopril 40 Mg Tablet 40 Mg PO DAILY I have reviewed the current psychotropics carefully including drug interactions. Risk benefit ratio favors no change other than as noted in my dictated progress note. 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
[2018-12-04 05:36] VITALS: BP 120/67
[2018-12-04] MEDS: LEVOTHYROXINE 25 MCG TABLET. PO SCH (06:01)
[2018-12-04 06:58] LABS: BASO % 0 % (0-3); EOS # 0.1 x10^3/uL (0.0-0.7); EOS % 1 % (0-3); HEMATOCRIT 40.9 % (39.0-53.0); LYMPH # 1.8 x10^3/uL (1.0-4.8); LYMPH % 19 % (24-48); MEAN CORPUSCULAR HEMOGLOBIN 30 pg (25-35); MEAN CORPUSCULAR HGB CONC 34 g/dL (31-37); MEAN CORPUSCULAR VOLUME 89 fL (79-100); MONO # 0.6 x10^3/uL (0.0-1.1); MONO % 6 % (0-9); NEUT # 7.4 x10^3uL (1.8-7.7); NEUT % 74 % (31-73); PLATELET COUNT 192 x10^3/uL (140-400); RED BLOOD COUNT 4.62 x10^6/uL (4.30-5.70); RED CELL DISTRIBUTION WIDTH 13.6 % (11.5-14.5); WHITE BLOOD COUNT 9.9 x10^3/uL (4.0-11.0)
[2018-12-04 07:17] LABS: ALBUMIN 3.1 g/dL (3.4-5.0); ALBUMIN/GLOBULIN RATIO 0.9 (1.0-1.7); ALK PHOS 75 U/L (46-116); ALT (SGPT) 14 U/L (16-63); ANION GAP 9 (6-14); AST (SGOT) 15 U/L (15-37); BLOOD UREA NITROGEN 24 mg/dL (8-26); BUN/CREATININE RATIO 15 (6-20); CALCIUM 8.4 mg/dL (8.5-10.1); CARBON DIOXIDE 26 mmol/L (21-32); CHLORIDE 103 mmol/L (98-107); CREATININE 1.6 mg/dL (0.7-1.3); GFR 41.8; GLUCOSE 49 mg/dL (70-99); SODIUM 138 mmol/L (136-145); TOTAL BILIRUBIN 0.4 mg/dL (0.2-1.0); TOTAL PROTEIN 6.4 g/dL (6.4-8.2)
[2018-12-04 07:19] LABS: VAL ACID 44 mcg/mL (50-100)
[2018-12-04] MEDS: medroxyPROGESTERone 5 MG TABLET PO SCH (07:46)
[2018-12-04] MEDS: DONEPEZIL HCL 5 MG TABLET. PO SCH (07:46)
[2018-12-04] MEDS: SERTRALINE 50 MG TABLET. PO SCH (07:46)
[2018-12-04] MEDS: amLODIPine BESYLATE 5 MG TABLET PO SCH (07:46)
[2018-12-04] MEDS: LISINOPRIL 20 MG TABLET PO SCH (07:46)
[2018-12-04] MEDS: INSULIN LISPRO 300 UNITS/3 ML INSULN.PEN. SQ SCH ×3 (07:47→17:37)
[2018-12-04] MEDS: INSULIN GLARGINE 300 UNITS/3 ML INSULN.PEN. SQ SCH ×2 (07:48→20:56)
[2018-12-04 16:19] VITALS: BP 118/72
--- NOTE | 2018-12-04 18:48 | PN ---
DATE: 12/03/2018 PSYCHIATRIC PROGRESS NOTE This late entry 12/03/2018 covers elements not covered in my initial note. SUBJECTIVE: I met with the patient in the evening of 12/03/2018. The patient slept 4-1/2 hours previous night. He remains withdrawn, little irritable, but not aggressive. Sleep is disturbed. I met with him in his room at some length. 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 REVIEW OF SYSTEMS: No CV, , pulmonary, eye system symptoms on review. Reliability poor. MENTAL STATUS EXAM: Oriented to himself. Insight, judgment, recent and remote memory, attention, concentration, fund of knowledge poor, consistent with his diagnosis mentioned in my initial note. PLAN: Continue psychotropics from initial note. Start Remeron 7.5 mg p.o. at bedtime for the insomnia. MAN KaurDora CRUZ MD DR: JADA/archie JOB#: [id number] / [id number]
[2018-12-04] MEDS ORDERED: traZODone 100 MG TABLET. PO PRN (19:00)
[2018-12-04] MEDS: ATORVASTATIN CALCIUM 20 MG TABLET PO SCH (20:24)
[2018-12-04] MEDS: DIVALPROEX ER 500 MG TAB.ER.24H PO SCH (20:26)
[2018-12-04] MEDS: MIRTAZAPINE 7.5 MG TABLET. PO SCH (20:26)
[2018-12-04] MEDS: RIVAROXABAN 15 MG TABLET. PO SCH (20:26)
[2018-12-04] MEDS: traZODone 100 MG TABLET. PO SCH (20:27)
--- NOTE | 2018-12-04 22:30 | PDOC ---
Exam Note: Dwain Note: Please also refer to the separate dictated note~for this date of service dictated separately.~Patient seen individually. Discussed the patient with Nursing staff reviewed the chart.~Reviewed interim history and current functioning. Reviewed vital signs,~Labs/ Radiology~and current medications noted below. Continue current treatment with the changes noted in the dictated addendum note Assessment: Vital Signs: Vital Signs Date Time Temp Pulse Resp B/P (MAP) Pulse Ox O2 Delivery O2 Flow Rate FiO2 12/04/18 16:19 98.6 77 18 118/72 (87) 94 12/04/18 05:36 Room Air I&O Intake and Output 12/04/18 06:59 Intake Total 1440 ml Balance 1440 ml Intake Oral 1440 ml Labs: Laboratory Tests Test 12/04/18 06:18 12/04/18 07:16 12/04/18 07:36 12/04/18 11:30 White Blood Count 9.9 x10^3/uL (4.0-11.0) # Red Blood Count 4.62 x10^6/uL (4.30-5.70) Hemoglobin 14.0 g/dL (13.0-17.5) Hematocrit 40.9 % (39.0-53.0) Mean Corpuscular Volume 89 fL (79-100) Mean Corpuscular Hemoglobin 30 pg (25-35) Mean Corpuscular Hemoglobin Concent 34 g/dL (31-37) Red Cell Distribution Width 13.6 % (11.5-14.5) Platelet Count 192 x10^3/uL (140-400) Neutrophils (%) (Auto) 74 % (31-73) H Lymphocytes (%) (Auto) 19 % (24-48) L Monocytes (%) (Auto) 6 % (0-9) Eosinophils (%) (Auto) 1 % (0-3) Basophils (%) (Auto) 0 % (0-3) Neutrophils # (Auto) 7.4 x10^3uL (1.8-7.7) Lymphocytes # (Auto) 1.8 x10^3/uL (1.0-4.8) Monocytes # (Auto) 0.6 x10^3/uL (0.0-1.1) Eosinophils # (Auto) 0.1 x10^3/uL (0.0-0.7) Basophils # (Auto) 0.0 x10^3/uL (0.0-0.2) Sodium Level 138 mmol/L (136-145) Potassium Level 4.0 mmol/L (3.5-5.1) Chloride Level 103 mmol/L (98-107) Carbon Dioxide Level 26 mmol/L (21-32) Anion Gap 9 (6-14) Blood Urea Nitrogen 24 mg/dL (8-26) Creatinine 1.6 mg/dL (0.7-1.3) H Estimated GFR (Cockcroft-Gault) 41.8 BUN/Creatinine Ratio 15 (6-20) Glucose Level 49 mg/dL (70-99) L Calcium Level 8.4 mg/dL (8.5-10.1) L Total Bilirubin 0.4 mg/dL (0.2-1.0) Aspartate Amino Transferase (AST) 15 U/L (15-37) Alanine Aminotransferase (ALT) 14 U/L (16-63) L Alkaline Phosphatase 75 U/L (46-116) Total Protein 6.4 g/dL (6.4-8.2) Albumin 3.1 g/dL (3.4-5.0) L Albumin/Globulin Ratio 0.9 (1.0-1.7) L Valproic Acid Level 44 mcg/mL (50-100) L Valproic Acid Last Dose Date 12/03/18 Valproic Acid Last Dose Time 2100 Glucose (Fingerstick) 49 mg/dL (70-99) L 71 mg/dL (70-99) 185 mg/dL (70-99) H Test 12/04/18 17:00 12/04/18 19:15 Glucose (Fingerstick) 202 mg/dL (70-99) H 190 mg/dL (70-99) H Current Medications: Meds: Current Medications Rivaroxaban (Xarelto) 20 mg HS PO Last administered on 11/25/18at 22:08; Start 11/25/18 at 21:00; Stop 11/26/18 at 14:13; Status DC Insulin Glargine (Lantus) 45 units QHS SQ Last administered on 12/04/18at 20:56; Start 11/25/18 at 21:00 Atorvastatin Calcium (Lipitor) 20 mg QHS PO Last administered on 5/8/19at 20:24; Start 11/26/18 at 21:00 Citalopram Hydrobromide (CeleXA) 10 mg DAILYBFRSUP PO Last administered on 11/26/18at 16:02; Start 11/26/18 at 17:00; Stop 11/27/18 at 11:53; Status DC Rivaroxaban (Xarelto) 20 mg HS PO ; Start 11/26/18 at 21:00; Stop 11/26/18 at 21:00; Status DC Acetaminophen (Tylenol) 650 mg PRN Q6HRS PRN PO PAIN / TEMP; Start 11/25/18 at 22:00 Amlodipine Besylate (Norvasc) 5 mg DAILY PO Last administered on 12/04/18 07:46; Start 11/26/18 at 09:00 Divalproex Sodium (Depakote Er) 500 mg DAILY PO Last administered on 11/27/18 09:00; Start 11/26/18 at 09:00; Stop 11/27/18 at 11:53; Status DC Donepezil HCl (Aricept) 5 mg DAILY PO Last administered on 12/04/18 07:46; Start 11/26/18 at 09:00 Insulin Human Lispro (HumaLOG) 10 units DAILYBFRLUN SQ Last administered on 12/04/18 11:54; Start 11/26/18 at 11:30 Insulin Human Lispro (HumaLOG) 10 units DAILYWBKFT SQ Last administered on 12/03/18 07:53; Start 11/26/18 at 08:00 Insulin Human Lispro (HumaLOG) 17 units DAILYWSUP SQ Last administered on 12/04/18 17:37; Start 11/26/18 at 17:00 Insulin Glargine (Lantus) 5 units DAILY SQ Last administered on 12/04/18 07:48; Start 11/26/18 at 09:00 Non-Formulary Medication (Insulin Detemir (Levemir)) 45 unit HS SQ ; Start 11/26/18 at 21:00; Stop 11/26/18 at 21:00; Status DC Levothyroxine Sodium (Synthroid) 25 mcg DAILY06 PO Last administered on 12/04/18at 06:01; Start 11/26/18 at 06:00 Lisinopril (Prinivil) 40 mg DAILY PO Last administered on 12/04/18 07:46; Start 11/26/18 at 09:00 Trazodone HCl (Desyrel) 50 mg QHS PO Last administered on 12/03/18 19:30; Start 11/25/18 at 22:00; Stop 12/04/18 at 18:39; Status DC Acetaminophen (Tylenol) 650 mg PRN Q6HRS PRN PO PAIN / TEMP; Start 11/25/18 at 23:30; Status UNV Multi-Ingredient Ointment (Analgesic [place]) 1 katarzyna PRN QID PRN TP MUSCLE PAIN; Start 11/25/18 at 23:30 Al Hydroxide/Mg Hydroxide (Mylanta Plus Xs) 15 ml PRN AFTMEALHC PRN PO DYSPEPSIA; Start 11/25/18 at 23:30 Magnesium Hydroxide (Milk Of Magnesia) 2,400 mg PRN QHS PRN PO CONSTIPATION; Start 11/25/18 at 23:30 Rivaroxaban (Xarelto) 15 mg QHS PO Last administered on 12/04/18 20:26; Start 11/26/18 at 21:00 Divalproex Sodium (Depakote Er) 750 mg HS PO Last administered on 11/30/18 19:24; Start 11/28/18 at 21:00; Stop 11/30/18 at 20:48; Status DC Sertraline HCl (Zoloft) 50 mg DAILY PO Last administered on 12/04/18 07:46; Start 11/28/18 at 09:00 Divalproex Sodium (Depakote Er) 250 mg 1X ONCE PO Last administered on 11/27/18 12:08; Start 11/27/18 at 11:45; Stop 11/27/18 at 11:58; Status DC Medroxyprogesterone Acetate (Provera) 2.5 mg DAILY PO Last administered on 12/01/18 08:03; Start 11/29/18 at 09:00; Stop 12/01/18 at 09:01; Status DC Medroxyprogesterone Acetate (Provera) 5 mg DAILY PO Last administered on 12/04/18 07:46; Start 12/02/18 at 09:00 Divalproex Sodium (Depakote Er) 1,000 mg QHS PO Last administered on 12/04/18 20:26; Start 12/01/18 at 21:00 Trazodone HCl (Desyrel) 50 mg PRN QHS PRN PO INSOMNIA Last administered on 12/03/18at 19:32; Start 12/02/18 at 17:45; Stop 12/04/18 at 18:39; Status DC Mirtazapine (Remeron) 7.5 mg QHS PO Last administered on 12/04/18 20:26; Start 12/03/18 at 21:00 Trazodone HCl (Desyrel) 100 mg QHS PO Last administered on 12/04/18 20:27; Start 12/04/18 at 21:00 Trazodone HCl (Desyrel) 100 mg PRN QHS PRN PO INSOMNIA; Start 12/04/18 at 19:00 Active Scripts Active Reported Atorvastatin Calcium 20 Mg Tablet 20 Mg PO QHS Amlodipine Besylate 5 Mg Tablet 5 Mg PO DAILY Acetaminophen 160 Mg/5 Ml Solution 650 Mg PO PRN Q6HRS PRN Xarelto (Rivaroxaban) 10 Mg Tablet 20 Mg PO HS Trazodone Hcl 50 Mg Tablet 50 Mg PO HS Novolog Flexpen (Insulin Aspart) 100 Unit/1 Ml Insuln.pen 17 Unit SQ DAILYWSUP Novolog Flexpen (Insulin Aspart) 100 Unit/1 Ml Insuln.pen 10 Unit SQ DAILYBFRLUN Novolog Flexpen (Insulin Aspart) 100 Unit/1 Ml Insuln.pen 10 Unit SQ DAILYWBKFT Levothyroxine Sodium 25 Mcg Tablet 25 Mcg PO DAILYAC Levemir (Insulin Detemir) 100 Unit/1 Ml Vial 5 SQ DAILY Levemir (Insulin Detemir) 100 Unit/1 Ml Vial 45 Unit SQ HS Donepezil Hcl 5 Mg Tablet 5 Mg PO DAILY Divalproex Sodium Er (Divalproex Sodium) 500 Mg Tab.er.24h 500 Mg PO DAILY Citalopram Hbr (Citalopram Hydrobromide) 10 Mg Tablet 10 Mg PO DAILYBFRSUP Lisinopril 40 Mg Tablet 40 Mg PO DAILY I have reviewed the current psychotropics carefully including drug interactions. Risk benefit ratio favors no change other than as noted in my dictated progress note. 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
[2018-12-05] MEDS: LEVOTHYROXINE 25 MCG TABLET. PO SCH (05:25)
[2018-12-05 05:43] VITALS: BP 120/71
[2018-12-05] MEDS: INSULIN LISPRO 300 UNITS/3 ML INSULN.PEN. SQ SCH ×3 (08:00→17:25)
[2018-12-05] MEDS: amLODIPine BESYLATE 5 MG TABLET PO SCH (08:04)
[2018-12-05] MEDS: DONEPEZIL HCL 5 MG TABLET. PO SCH (08:04)
[2018-12-05] MEDS: LISINOPRIL 20 MG TABLET PO SCH (08:04)
[2018-12-05] MEDS: SERTRALINE 50 MG TABLET. PO SCH (08:04)
[2018-12-05] MEDS: medroxyPROGESTERone 5 MG TABLET PO SCH (08:04)
[2018-12-05] MEDS: INSULIN GLARGINE 300 UNITS/3 ML INSULN.PEN. SQ SCH ×2 (08:05→21:08)
[2018-12-05 15:38] VITALS: BP 102/62
[2018-12-05] MEDS: MIRTAZAPINE 7.5 MG TABLET. PO SCH (21:03)
[2018-12-05] MEDS: RIVAROXABAN 15 MG TABLET. PO SCH (21:03)
[2018-12-05] MEDS: ATORVASTATIN CALCIUM 20 MG TABLET PO SCH (21:03)
[2018-12-05] MEDS: traZODone 100 MG TABLET. PO SCH (21:03)
[2018-12-05] MEDS: DIVALPROEX ER 500 MG TAB.ER.24H PO SCH (21:03)
--- NOTE | 2018-12-05 22:25 | PDOC ---
Exam Note: Dwain Note: Please also refer to the separate dictated note~for this date of service dictated separately.~Patient seen individually. Discussed the patient with Nursing staff reviewed the chart.~Reviewed interim history and current functioning. Reviewed vital signs,~Labs/ Radiology~and current medications noted below. Continue current treatment with the changes noted in the dictated addendum note Assessment: Vital Signs: Vital Signs Date Time Temp Pulse Resp B/P (MAP) Pulse Ox O2 Delivery O2 Flow Rate FiO2 12/05/18 15:38 97.7 82 20 102/62 (75) 95 Room Air I&O Intake and Output 12/05/18 07:00 Intake Total 1560 ml Output Total 1000 ml Balance 560 ml Intake Oral 1560 ml Output Urine Total 1000 ml # Voids 1 Labs: Laboratory Tests Test 12/05/18 07:10 12/05/18 07:18 12/05/18 11:34 12/05/18 17:04 Glucose (Fingerstick) 46 mg/dL (70-99) L 50 mg/dL (70-99) L 281 mg/dL (70-99) H 235 mg/dL (70-99) H Test 12/05/18 18:58 Glucose (Fingerstick) 304 mg/dL (70-99) H Current Medications: Meds: Current Medications Rivaroxaban (Xarelto) 20 mg HS PO Last administered on 11/25/18at 22:08; Start 11/25/18 at 21:00; Stop 11/26/18 at 14:13; Status DC Insulin Glargine (Lantus) 45 units QHS SQ Last administered on 12/04/18at 20:56; Start 11/25/18 at 21:00; Stop 12/05/18 at 14:08; Status DC Atorvastatin Calcium (Lipitor) 20 mg QHS PO Last administered on 12/05/18at 21:03; Start 11/26/18 at 21:00 Citalopram Hydrobromide (CeleXA) 10 mg DAILYBFRSUP PO Last administered on 11/26/18at 16:02; Start 11/26/18 at 17:00; Stop 11/27/18 at 11:53; Status DC Rivaroxaban (Xarelto) 20 mg HS PO ; Start 11/26/18 at 21:00; Stop 11/26/18 at 21:00; Status DC Acetaminophen (Tylenol) 650 mg PRN Q6HRS PRN PO PAIN / TEMP; Start 11/25/18 at 22:00 Amlodipine Besylate (Norvasc) 5 mg DAILY PO Last administered on 12/05/18 08:04; Start 11/26/18 at 09:00 Divalproex Sodium (Depakote Er) 500 mg DAILY PO Last administered on 11/27/18 09:00; Start 11/26/18 at 09:00; Stop 11/27/18 at 11:53; Status DC Donepezil HCl (Aricept) 5 mg DAILY PO Last administered on 12/05/18 08:04; Start 11/26/18 at 09:00 Insulin Human Lispro (HumaLOG) 10 units DAILYBFRLUN SQ Last administered on 12/05/18at 11:47; Start 11/26/18 at 11:30 Insulin Human Lispro (HumaLOG) 10 units DAILYWBKFT SQ Last administered on 12/03/18at 07:53; Start 11/26/18 at 08:00 Insulin Human Lispro (HumaLOG) 17 units DAILYWSUP SQ Last administered on 12/04/18at 17:37; Start 11/26/18 at 17:00; Stop 12/05/18 at 14:09; Status DC Insulin Glargine (Lantus) 5 units DAILY SQ Last administered on 12/05/18at 08:05; Start 11/26/18 at 09:00 Non-Formulary Medication (Insulin Detemir (Levemir)) 45 unit HS SQ ; Start 11/26/18 at 21:00; Stop 11/26/18 at 21:00; Status DC Levothyroxine Sodium (Synthroid) 25 mcg DAILY06 PO Last administered on 12/05/18at 05:25; Start 11/26/18 at 06:00 Lisinopril (Prinivil) 40 mg DAILY PO Last administered on 12/05/18 08:04; Start 11/26/18 at 09:00 Trazodone HCl (Desyrel) 50 mg QHS PO Last administered on 12/03/18at 19:30; Start 11/25/18 at 22:00; Stop 12/04/18 at 18:39; Status DC Acetaminophen (Tylenol) 650 mg PRN Q6HRS PRN PO PAIN / TEMP; Start 11/25/18 at 23:30; Status UNV Multi-Ingredient Ointment (Analgesic [place]) 1 katarzyna PRN QID PRN TP MUSCLE PAIN; Start 11/25/18 at 23:30 Al Hydroxide/Mg Hydroxide (Mylanta Plus Xs) 15 ml PRN AFTMEALHC PRN PO DYSP EPSIA; Start 11/25/18 at 23:30 Magnesium Hydroxide (Milk Of Magnesia) 2,400 mg PRN QHS PRN PO CONSTIPATION; Start 11/25/18 at 23:30 Rivaroxaban (Xarelto) 15 mg QHS PO Last administered on 12/05/18 21:03; Start 11/26/18 at 21:00 Divalproex Sodium (Depakote Er) 750 mg HS PO Last administered on 11/30/18 19:24; Start 11/28/18 at 21:00; Stop 11/30/18 at 20:48; Status DC Sertraline HCl (Zoloft) 50 mg DAILY PO Last administered on 12/05/18 08:04; Start 11/28/18 at 09:00 Divalproex Sodium (Depakote Er) 250 mg 1X ONCE PO Last administered on 11/27/18 12:08; Start 11/27/18 at 11:45; Stop 11/27/18 at 11:58; Status DC Medroxyprogesterone Acetate (Provera) 2.5 mg DAILY PO Last administered on 12/01/18 08:03; Start 11/29/18 at 09:00; Stop 12/01/18 at 09:01; Status DC Medroxyprogesterone Acetate (Provera) 5 mg DAILY PO Last administered on 12/05/18 08:04; Start 12/02/18 at 09:00 Divalproex Sodium (Depakote Er) 1,000 mg QHS PO Last administered on 12/05/18 21:03; Start 12/01/18 at 21:00 Trazodone HCl (Desyrel) 50 mg PRN QHS PRN PO INSOMNIA Last administered on 12/03/18 19:32; Start 12/02/18 at 17:45; Stop 12/04/18 at 18:39; Status DC Mirtazapine (Remeron) 7.5 mg QHS PO Last administered on 12/05/18at 21:03; Start 12/03/18 at 21:00 Trazodone HCl (Desyrel) 100 mg QHS PO Last administered on 12/05/18at 21:03; Start 12/04/18 at 21:00 Trazodone HCl (Desyrel) 100 mg PRN QHS PRN PO INSOMNIA; Start 12/04/18 at 19:00 Insulin Glargine (Lantus) 30 units QHS SQ Last administered on 12/05/18at 21:08; Start 12/05/18 at 21:00 Insulin Human Lispro (HumaLOG) 10 units DAILYWSUP SQ Last administered on 12/05/18at 17:25; Start 12/05/18 at 17:00 Active Scripts Active Reported Atorvastatin Calcium 20 Mg Tablet 20 Mg PO QHS Amlodipine Besylate 5 Mg Tablet 5 Mg PO DAILY Acetaminophen 160 Mg/5 Ml Solution 650 Mg PO PRN Q6HRS PRN Xarelto (Rivaroxaban) 10 Mg Tablet 20 Mg PO HS Trazodone Hcl 50 Mg Tablet 50 Mg PO HS Novolog Flexpen (Insulin Aspart) 100 Unit/1 Ml Insuln.pen 17 Unit SQ DAILYWSUP Novolog Flexpen (Insulin Aspart) 100 Unit/1 Ml Insuln.pen 10 Unit SQ DAILYBFRLUN Novolog Flexpen (Insulin Aspart) 100 Unit/1 Ml Insuln.pen 10 Unit SQ DAILYWBKFT Levothyroxine Sodium 25 Mcg Tablet 25 Mcg PO DAILYAC Levemir (Insulin Detemir) 100 Unit/1 Ml Vial 5 SQ DAILY Levemir (Insulin Detemir) 100 Unit/1 Ml Vial 45 Unit SQ HS Donepezil Hcl 5 Mg Tablet 5 Mg PO DAILY Divalproex Sodium Er (Divalproex Sodium) 500 Mg Tab.er.24h 500 Mg PO DAILY Citalopram Hbr (Citalopram Hydrobromide) 10 Mg Tablet 10 Mg PO DAILYBFRSUP Lisinopril 40 Mg Tablet 40 Mg PO DAILY I have reviewed the current psychotropics carefully including drug interactions. Risk benefit ratio favors no change other than as noted in my dictated progress note. 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
[2018-12-06] MEDS: LEVOTHYROXINE 25 MCG TABLET. PO SCH (05:40)
[2018-12-06 06:10] VITALS: BP 131/83
[2018-12-06] MEDS: medroxyPROGESTERone 5 MG TABLET PO SCH (07:47)
[2018-12-06] MEDS: DONEPEZIL HCL 5 MG TABLET. PO SCH (07:47)
[2018-12-06] MEDS: LISINOPRIL 20 MG TABLET PO SCH (07:48)
[2018-12-06] MEDS: SERTRALINE 50 MG TABLET. PO SCH (07:48)
[2018-12-06] MEDS: amLODIPine BESYLATE 5 MG TABLET PO SCH (07:48)
[2018-12-06] MEDS: INSULIN GLARGINE 300 UNITS/3 ML INSULN.PEN. SQ SCH ×2 (07:49→19:53)
[2018-12-06] MEDS: INSULIN LISPRO 300 UNITS/3 ML INSULN.PEN. SQ SCH ×4 (07:50→17:28)
--- NOTE | 2018-12-06 14:22 | PN ---
DATE: 12/04/2018 PSYCHIATRIC PROGRESS NOTE This is a late entry, date of service 12/04/2018, covers elements not covered in my initial note. SUBJECTIVE: I met with the patient evening of 12/04/2018. The patient slept for 3/4 hours previous night. He has been withdrawn, spends much time in his room, sleeping during the day, but not aggressive and no sexually inappropriate behaviors noted. He is confused. REVIEW OF SYSTEMS: Ambulation impaired, in wheelchair due to below knee amputation right side. No CV, , pulmonary, eye, ENT system symptoms on review. Reliability poor. MENTAL STATUS EXAM: Oriented to himself. Insight, judgment, recent and remote memory, attention, concentration, fund of knowledge poor, consistent with his diagnoses mentioned in my initial note. PLAN: Increase trazodone to 100 mg at bedtime, may repeat x 1. Maintain Zoloft, Depakote, Aricept at current dosage together with Provera and Remeron. MAN Dulce CRUZ MD DR: JADA/archie JOB#: [id number] / [id number]
[2018-12-06 16:24] VITALS: BP 142/85
[2018-12-06] MEDS: ATORVASTATIN CALCIUM 20 MG TABLET PO SCH (19:51)
[2018-12-06] MEDS: DIVALPROEX ER 500 MG TAB.ER.24H PO SCH (19:51)
[2018-12-06] MEDS: MIRTAZAPINE 7.5 MG TABLET. PO SCH (19:51)
[2018-12-06] MEDS: RIVAROXABAN 15 MG TABLET. PO SCH (19:51)
[2018-12-06] MEDS: traZODone 100 MG TABLET. PO SCH (19:52)
--- NOTE | 2018-12-06 21:17 | PN ---
DATE: 12/05/2018 PSYCHIATRIC PROGRESS NOTE This late entry 12/05/2018 covers elements not covered in my initial note. SUBJECTIVE: I met with the patient in the evening of 12/05/2018, staffed at a treatment team meeting with the entire team in the morning of 12/05/2018. I reviewed the patient's history, diagnosis, progress, discharge plans. The patient slept 6-3/4 hours previous night. Appetite 100%. He remains isolative, somewhat withdrawn, but not sexually inappropriate or aggressive. I met with him in his room at some length in the evening. REVIEW OF SYSTEMS: No CV, , pulmonary, eye system symptoms on review. Gait unsteady, in wheelchair due to his lower limb below-knee amputation. MENTAL STATUS EXAM: Oriented to himself. He is hard of hearing. Insight, judgment, recent and remote memory, attention, concentration, fund of knowledge poor, consistent with his diagnosis mentioned in my initial note. PLAN: No change from initial note. MAN Dulce CRUZ MD DR: JADA/archie JOB#: [id number] / [id number]
--- NOTE | 2018-12-06 22:25 | PDOC ---
Exam Note: Dwain Note: Please also refer to the separate dictated note~for this date of service dictated separately.~Patient seen individually. Discussed the patient with Nursing staff reviewed the chart.~Reviewed interim history and current functioning. Reviewed vital signs,~Labs/ Radiology~and current medications noted below. Continue current treatment with the changes noted in the dictated addendum note Assessment: Vital Signs: Vital Signs Date Time Temp Pulse Resp B/P (MAP) Pulse Ox O2 Delivery O2 Flow Rate FiO2 12/06/18 16:24 98.2 71 18 142/85 (104) 94 12/05/18 15:38 Room Air I&O Intake and Output 12/06/18 07:00 Intake Total 840 ml Balance 840 ml Intake Oral 840 ml Labs: Laboratory Tests Test 12/06/18 07:09 12/06/18 11:33 12/06/18 17:14 12/06/18 19:13 Glucose (Fingerstick) 84 mg/dL (70-99) 109 mg/dL (70-99) H 127 mg/dL (70-99) H 233 mg/dL (70-99) H Current Medications: Meds: Current Medications Rivaroxaban (Xarelto) 20 mg HS PO Last administered on 11/25/18at 22:08; Start 11/25/18 at 21:00; Stop 11/26/18 at 14:13; Status DC Insulin Glargine (Lantus) 45 units QHS SQ Last administered on 12/04/18at 20:56; Start 11/25/18 at 21:00; Stop 12/05/18 at 14:08; Status DC Atorvastatin Calcium (Lipitor) 20 mg QHS PO Last administered on 12/06/18at 19:51; Start 11/26/18 at 21:00 Citalopram Hydrobromide (CeleXA) 10 mg DAILYBFRSUP PO Last administered on 11/26/18at 16:02; Start 11/26/18 at 17:00; Stop 11/27/18 at 11:53; Status DC Rivaroxaban (Xarelto) 20 mg HS PO ; Start 11/26/18 at 21:00; Stop 11/26/18 at 21:00; Status DC Acetaminophen (Tylenol) 650 mg PRN Q6HRS PRN PO PAIN / TEMP; Start 11/25/18 at 22:00 Amlodipine Besylate (Norvasc) 5 mg DAILY PO Last administered on 12/06/18 07:48; Start 11/26/18 at 09:00 Divalproex Sodium (Depakote Er) 500 mg DAILY PO Last administered on 11/27/18 09:00; Start 11/26/18 at 09:00; Stop 11/27/18 at 11:53; Status DC Donepezil HCl (Aricept) 5 mg DAILY PO Last administered on 12/06/18 07:47; Start 11/26/18 at 09:00 Insulin Human Lispro (HumaLOG) 10 units DAILYBFRLUN SQ Last administered on 12/05/18 11:47; Start 11/26/18 at 11:30 Insulin Human Lispro (HumaLOG) 10 units DAILYWBKFT SQ Last administered on 12/06/18 07:50; Start 11/26/18 at 08:00 Insulin Human Lispro (HumaLOG) 17 units DAILYWSUP SQ Last administered on 12/04/18at 17:37; Start 11/26/18 at 17:00; Stop 12/05/18 at 14:09; Status DC Insulin Glargine (Lantus) 5 units DAILY SQ Last administered on 12/06/18 07:49; Start 11/26/18 at 09:00 Non-Formulary Medication (Insulin Detemir (Levemir)) 45 unit HS SQ ; Start 11/26/18 at 21:00; Stop 11/26/18 at 21:00; Status DC Levothyroxine Sodium (Synthroid) 25 mcg DAILY06 PO Last administered on 12/06/18 05:40; Start 11/26/18 at 06:00 Lisinopril (Prinivil) 40 mg DAILY PO Last administered on 12/06/18 07:48; Start 11/26/18 at 09:00 Trazodone HCl (Desyrel) 50 mg QHS PO Last administered on 12/03/18 19:30; Start 11/25/18 at 22:00; Stop 12/04/18 at 18:39; Status DC Acetaminophen (Tylenol) 650 mg PRN Q6HRS PRN PO PAIN / TEMP; Start 11/25/18 at 23:30; Status UNV Multi-Ingredient Ointment (Analgesic Blanco) 1 katarzyna PRN QID PRN TP MUSCLE PAIN; Start 11/25/18 at 23:30 Al Hydroxide/Mg Hydroxide (Mylanta Plus Xs) 15 ml PRN AFTMEALHC PRN PO DYSPEPSIA; Start 11/25/18 at 23:30 Magnesium Hydroxide (Milk Of Magnesia) 2,400 mg PRN QHS PRN PO CONSTIPATION; Start 11/25/18 at 23:30 Rivaroxaban (Xarelto) 15 mg QHS PO Last administered on 12/06/18 19:51; Start 11/26/18 at 21:00 Divalproex Sodium (Depakote Er) 750 mg HS PO Last administered on 11/30/18 19:24; Start 11/28/18 at 21:00; Stop 11/30/18 at 20:48; Status DC Sertraline HCl (Zoloft) 50 mg DAILY PO Last administered on 12/06/18 07:48; Start 11/28/18 at 09:00 Divalproex Sodium (Depakote Er) 250 mg 1X ONCE PO Last administered on 11/27/18at 12:08; Start 11/27/18 at 11:45; Stop 11/27/18 at 11:58; Status DC Medroxyprogesterone Acetate (Provera) 2.5 mg DAILY PO Last administered on 12/01/18 08:03; Start 11/29/18 at 09:00; Stop 12/01/18 at 09:01; Status DC Medroxyprogesterone Acetate (Provera) 5 mg DAILY PO Last administered on 12/06/18 07:47; Start 12/02/18 at 09:00 Divalproex Sodium (Depakote Er) 1,000 mg QHS PO Last administered on 12/06/18 19:51; Start 12/01/18 at 21:00 Trazodone HCl (Desyrel) 50 mg PRN QHS PRN PO INSOMNIA Last administered on 12/03/18 19:32; Start 12/02/18 at 17:45; Stop 12/04/18 at 18:39; Status DC Mirtazapine (Remeron) 7.5 mg QHS PO Last administered on 12/06/18 19:51; Start 12/03/18 at 21:00 Trazodone HCl (Desyrel) 100 mg QHS PO Last administered on 12/06/18at 19:52; Start 12/04/18 at 21:00 Trazodone HCl (Desyrel) 100 mg PRN QHS PRN PO INSOMNIA; Start 12/04/18 at 19:00 Insulin Glargine (Lantus) 30 units QHS SQ Last administered on 12/06/18at 19:53; Start 12/05/18 at 21:00 Insulin Human Lispro (HumaLOG) 10 units DAILYWSUP SQ Last administered on 12/06/18at 17:28; Start 12/05/18 at 17:00 Active Scripts Active Reported Atorvastatin Calcium 20 Mg Tablet 20 Mg PO QHS Amlodipine Besylate 5 Mg Tablet 5 Mg PO DAILY Acetaminophen 160 Mg/5 Ml Solution 650 Mg PO PRN Q6HRS PRN Xarelto (Rivaroxaban) 10 Mg Tablet 20 Mg PO HS Trazodone Hcl 50 Mg Tablet 50 Mg PO HS Novolog Flexpen (Insulin Aspart) 100 Unit/1 Ml Insuln.pen 17 Unit SQ DAILYWSUP Novolog Flexpen (Insulin Aspart) 100 Unit/1 Ml Insuln.pen 10 Unit SQ DAILYBFRLUN Novolog Flexpen (Insulin Aspart) 100 Unit/1 Ml Insuln.pen 10 Unit SQ DAILYWBKFT Levothyroxine Sodium 25 Mcg Tablet 25 Mcg PO DAILYAC Levemir (Insulin Detemir) 100 Unit/1 Ml Vial 5 SQ DAILY Levemir (Insulin Detemir) 100 Unit/1 Ml Vial 45 Unit SQ HS Donepezil Hcl 5 Mg Tablet 5 Mg PO DAILY Divalproex Sodium Er (Divalproex Sodium) 500 Mg Tab.er.24h 500 Mg PO DAILY Citalopram Hbr (Citalopram Hydrobromide) 10 Mg Tablet 10 Mg PO DAILYBFRSUP Lisinopril 40 Mg Tablet 40 Mg PO DAILY I have reviewed the current psychotropics carefully including drug interactions. Risk benefit ratio favors no change other than as noted in my dictated progress note. 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
[2018-12-07] MEDS: LEVOTHYROXINE 25 MCG TABLET. PO SCH (04:38)
[2018-12-07 05:49] VITALS: BP 103/63
[2018-12-07] MEDS: medroxyPROGESTERone 5 MG TABLET PO SCH (07:52)
[2018-12-07] MEDS: SERTRALINE 50 MG TABLET. PO SCH (07:53)
[2018-12-07] MEDS: amLODIPine BESYLATE 5 MG TABLET PO SCH (07:53)
[2018-12-07] MEDS: LISINOPRIL 20 MG TABLET PO SCH (07:53)
[2018-12-07] MEDS: DONEPEZIL HCL 5 MG TABLET. PO SCH (07:54)
[2018-12-07] MEDS: INSULIN LISPRO 300 UNITS/3 ML INSULN.PEN. SQ SCH ×3 (07:55→17:34)
[2018-12-07] MEDS: INSULIN GLARGINE 300 UNITS/3 ML INSULN.PEN. SQ SCH ×2 (07:58→19:56)
--- NOTE | 2018-12-07 08:48 | PN ---
DATE: 12/06/2018 This is a late entry, date of service 12/06/2018, covers elements not covered in my initial note from 12/06/2018. SUBJECTIVE: I met with the patient in the evening of 12/06/2018 in his room at some length. Per nursing report, the patient slept 7-3/4 hours. He spends much time in bed. He was not agitated or sexually inappropriate. 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 No CV, , pulmonary, ENT system symptoms on review. Reliability poor. MENTAL STATUS EXAM: Oriented to himself. Insight, judgment, recent and remote memory, attention, concentration, fund of knowledge poor, consistent with his diagnosis mentioned in my initial note. PLAN: The patient's valproic acid level is 44 on the 8th. Despite being slightly subtherapeutic clinically, it is adequate for now. Continue psychotropics from initial note. MAN Dulce CRUZ MD DR: JADA/archie JOB#: [id number] / [id number]
[2018-12-07 16:01] VITALS: BP 112/67
--- NOTE | 2018-12-07 19:11 | PN ---
DATE: 12/07/2018 PSYCHIATRIC PROGRESS NOTE This note covers elements not covered in my initial note of 12/07/2018. SUBJECTIVE: I met with the patient in the morning. The patient slept 7-1/4 hours previous night. Last night, he was incontinent of bowel, but did cooperate with staff assisting him. No PRNs have been given. We talked about him using a hearing amplifier to help with communication. REVIEW OF SYSTEMS: Hard of hearing. No CV, , pulmonary, eye system symptoms on review. Reliability poor. MENTAL STATUS EXAM: Oriented to himself. Insight, judgment, recent and remote memory, attention, concentration, fund of knowledge poor, consistent with his diagnosis mentioned in my initial note. PLAN: No change from initial note. Maintain Zoloft, Depakote, Aricept, trazodone. Provera and Remeron for now. MAN Dulce CRUZ MD DR: JADA/archie JOB#: [id number] / [id number]
[2018-12-07] MEDS: ATORVASTATIN CALCIUM 20 MG TABLET PO SCH (19:53)
[2018-12-07] MEDS: MIRTAZAPINE 7.5 MG TABLET. PO SCH (19:53)
[2018-12-07] MEDS: RIVAROXABAN 15 MG TABLET. PO SCH (19:53)
[2018-12-07] MEDS: traZODone 100 MG TABLET. PO SCH (19:53)
[2018-12-07] MEDS: DIVALPROEX ER 500 MG TAB.ER.24H PO SCH (19:54)
[2018-12-08] MEDS: LEVOTHYROXINE 25 MCG TABLET. PO SCH (04:45)
[2018-12-08 06:55] VITALS: BP 98/58
[2018-12-08] MEDS: DONEPEZIL HCL 5 MG TABLET. PO SCH (08:13)
[2018-12-08] MEDS: SERTRALINE 50 MG TABLET. PO SCH (08:14)
[2018-12-08] MEDS: medroxyPROGESTERone 5 MG TABLET PO SCH (08:14)
[2018-12-08] MEDS: INSULIN GLARGINE 300 UNITS/3 ML INSULN.PEN. SQ SCH ×2 (09:00→20:18)
[2018-12-08] MEDS: INSULIN LISPRO 300 UNITS/3 ML INSULN.PEN. SQ SCH ×3 (09:07→17:50)
[2018-12-08 09:25] VITALS: BP 103/63
[2018-12-08] MEDS: LISINOPRIL 20 MG TABLET PO SCH (09:26)
[2018-12-08] MEDS: amLODIPine BESYLATE 5 MG TABLET PO SCH (09:27)
[2018-12-08 15:56] VITALS: BP 136/71
[2018-12-08] MEDS: ATORVASTATIN CALCIUM 20 MG TABLET PO SCH (19:36)
[2018-12-08] MEDS: MIRTAZAPINE 7.5 MG TABLET. PO SCH (19:36)
[2018-12-08] MEDS: traZODone 100 MG TABLET. PO SCH (19:36)
[2018-12-08] MEDS: RIVAROXABAN 15 MG TABLET. PO SCH (19:36)
[2018-12-08] MEDS: DIVALPROEX ER 500 MG TAB.ER.24H PO SCH (19:37)
--- NOTE | 2018-12-08 20:43 | PN ---
DATE: 12/08/2018 SUBJECTIVE: The patient was seen today, met with the staff, chart reviewed and also covering for Dr. Boswell. Staff reports no major problem apparently, but the patient has been sexually inappropriate at times, masturbating in the shower and also been verbally aggressive. The patient also has problems controlling his bowels. OBSERVATION: Vital signs: Temperature 97.2, blood pressure 136/71, pulse 67, respirations 19, O2 sat 99%. MEDICATIONS: He is on Lantus 30 units at night subcutaneously, Humalog 10 units daily subcutaneously, trazodone 100 mg at night p.r.n., mirtazapine 7.5 mg at night, Provera 5 mg daily, Depakote 1000 mg at night, Zoloft 50 mg daily, Xarelto 15 mg at night, Lipitor 20 mg at night. The patient is also on Humalog 10 units daily before lunch subcutaneously, lisinopril 40 mg daily. The patient is also on Lantus 5 units daily subcutaneously, Aricept 5 mg daily, amlodipine 5 mg daily, Humalog 10 units daily with breakfast subcutaneously, levothyroxine 25 mcg daily. LABORATORY DATA: The patient's lab reviewed, within normal range except his blood sugar fluctuated from 44-99. The patient's creatinine level was 1.6. The patient had abnormal lipid profile. ASSESSMENT: 1. Major neurocognitive disorder, Alzheimer's, vascular with delusions, depression, and behavioral disturbances. 2. Generalized anxiety disorder. 3. Impulse control disorder. PLAN: To continue with the treatment. The patient's medication to be evaluated. The patient also will have a Depakote level checked. LENGTH OF STAY: 5-7 days. RODRÍGUEZ MCKAY MD DR: TRAVIS/arhcie JOB#: [id number] / [id number]
--- NOTE | 2018-12-08 23:37 | PDOC ---
Exam Note: Dwain Note: Late entry for DOS 12/07/2018. Please also refer to the separate dictated note~for this date of service dictated separately.~Patient seen individually. Discussed the patient with Nursing staff reviewed the chart.~Reviewed interim history and current functioning. Reviewed vital signs,~Labs/ Radiology~and current medications noted below. Continue current treatment with the changes noted in the dictated addendum note Assessment: Vital Signs: VS - Last 72 Hours, by Label Date Time Temp Pulse Resp B/P (MAP) Pulse Ox O2 Delivery O2 Flow Rate FiO2 12/08/18 15:56 97.2 67 19 136/71 (92) 96 12/08/18 09:27 76 103/63 12/08/18 09:26 76 103/63 12/08/18 09:25 76 103/63 (76) 12/08/18 06:55 97.2 69 18 98/58 (71) 94 12/07/18 16:01 97.9 64 22 112/67 (82) 97 12/07/18 07:53 60 103/63 12/07/18 07:53 60 103/63 12/07/18 05:49 97.6 60 16 103/63 (76) 99 12/06/18 16:24 98.2 71 18 142/85 (104) 94 12/06/18 07:48 70 131/83 12/06/18 07:48 70 131/83 12/06/18 06:10 97.9 70 18 131/83 (99) 94 Vital Signs Date Time Temp Pulse Resp B/P (MAP) Pulse Ox O2 Delivery O2 Flow Rate FiO2 12/08/18 15:56 97.2 67 19 136/71 (92) 96 12/05/18 15:38 Room Air I&O Intake and Output 12/08/18 06:59 Intake Total 600 ml Balance 600 ml Intake Oral 600 ml Labs: Laboratory Tests Test 12/08/18 07:26 12/08/18 08:29 12/08/18 11:59 12/08/18 16:57 Glucose (Fingerstick) 44 mg/dL (70-99) L 99 mg/dL (70-99) 198 mg/dL (70-99) H 185 mg/dL (70-99) H Test 12/08/18 19:21 Glucose (Fingerstick) 339 mg/dL (70-99) H Current Medications: Meds: Current Medications Rivaroxaban (Xarelto) 20 mg HS PO Last administered on 11/25/18 22:08; Start 11/25/18 at 21:00; Stop 11/26/18 at 14:13; Status DC Insulin Glargine (Lantus) 45 units QHS SQ Last administered on 12/04/18 20:56; Start 11/25/18 at 21:00; Stop 12/05/18 at 14:08; Status DC Atorvastatin Calcium (Lipitor) 20 mg QHS PO Last administered on 12/08/18 19:36; Start 11/26/18 at 21:00 Citalopram Hydrobromide (CeleXA) 10 mg DAILYBFRSUP PO Last administered on 11/26/18 16:02; Start 11/26/18 at 17:00; Stop 11/27/18 at 11:53; Status DC Rivaroxaban (Xarelto) 20 mg HS PO ; Start 11/26/18 at 21:00; Stop 11/26/18 at 21:00; Status DC Acetaminophen (Tylenol) 650 mg PRN Q6HRS PRN PO PAIN / TEMP; Start 11/25/18 at 22:00 Amlodipine Besylate (Norvasc) 5 mg DAILY PO Last administered on 12/08/18 09:27; Start 11/26/18 at 09:00 Divalproex Sodium (Depakote Er) 500 mg DAILY PO Last administered on 11/27/18 09:00; Start 11/26/18 at 09:00; Stop 11/27/18 at 11:53; Status DC Donepezil HCl (Aricept) 5 mg DAILY PO Last administered on 12/08/18 08:13; Start 11/26/18 at 09:00 Insulin Human Lispro (HumaLOG) 10 units DAILYBFRLUN SQ Last administered on 12/08/18 12:10; Start 11/26/18 at 11:30 Insulin Human Lispro (HumaLOG) 10 units DAILYWBKFT SQ Last administered on 12/08/18 09:07; Start 11/26/18 at 08:00 Insulin Human Lispro (HumaLOG) 17 units DAILYWSUP SQ Last administered on 12/04/18 17:37; Start 11/26/18 at 17:00; Stop 12/05/18 at 14:09; Status DC Insulin Glargine (Lantus) 5 units DAILY SQ Last administered on 12/08/18 09:00; Start 11/26/18 at 09:00 Non-Formulary Medication (Insulin Detemir (Levemir)) 45 unit HS SQ ; Start 11/26/18 at 21:00; Stop 11/26/18 at 21:00; Status DC Levothyroxine Sodium (Synthroid) 25 mcg DAILY06 PO Last administered on 12/08/18 04:45; Start 11/26/18 at 06:00 Lisinopril (Prinivil) 40 mg DAILY PO Last administered on 12/08/18 09:26; Start 11/26/18 at 09:00 Trazodone HCl (Desyrel) 50 mg QHS PO Last administered on 12/03/18 19:30; Start 11/25/18 at 22:00; Stop 12/04/18 at 18:39; Status DC Acetaminophen (Tylenol) 650 mg PRN Q6HRS PRN PO PAIN / TEMP; Start 11/25/18 at 23:30; Status UNV Multi-Ingredient Ointment (Analgesic [place]) 1 katarzyna PRN QID PRN TP MUSCLE PAIN; Start 11/25/18 at 23:30 Al Hydroxide/Mg Hydroxide (Mylanta Plus Xs) 15 ml PRN AFTMEALHC PRN PO DYSPEPSIA; Start 11/25/18 at 23:30 Magnesium Hydroxide (Milk Of Magnesia) 2,400 mg PRN QHS PRN PO CONSTIPATION; Start 11/25/18 at 23:30 Rivaroxaban (Xarelto) 15 mg QHS PO Last administered on 12/08/18 19:36; Start 11/26/18 at 21:00 Divalproex Sodium (Depakote Er) 750 mg HS PO Last administered on 11/30/18 19:24; Start 11/28/18 at 21:00; Stop 11/30/18 at 20:48; Status DC Sertraline HCl (Zoloft) 50 mg DAILY PO Last administered on 12/08/18 08:14; Start 11/28/18 at 09:00 Divalproex Sodium (Depakote Er) 250 mg 1X ONCE PO Last administered on 11/27/18 12:08; Start 11/27/18 at 11:45; Stop 11/27/18 at 11:58; Status DC Medroxyprogesterone Acetate (Provera) 2.5 mg DAILY PO Last administered on 12/01/18 08:03; Start 11/29/18 at 09:00; Stop 12/01/18 at 09:01; Status DC Medroxyprogesterone Acetate (Provera) 5 mg DAILY PO Last administered on 12/08/18 08:14; Start 12/02/18 at 09:00 Divalproex Sodium (Depakote Er) 1,000 mg QHS PO Last administered on 12/08/18 19:37; Start 12/01/18 at 21:00 Trazodone HCl (Desyrel) 50 mg PRN QHS PRN PO INSOMNIA Last administered on 12/03/18 19:32; Start 12/02/18 at 17:45; Stop 12/04/18 at 18:39; Status DC Mirtazapine (Remeron) 7.5 mg QHS PO Last administered on 12/08/18 19:36; Start 12/03/18 at 21:00 Trazodone HCl (Desyrel) 100 mg QHS PO Last administered on 12/08/18 19:36; Start 12/04/18 at 21:00 Trazodone HCl (Desyrel) 100 mg PRN QHS PRN PO INSOMNIA; Start 12/04/18 at 19:00 Insulin Glargine (Lantus) 30 units QHS SQ Last administered on 12/08/18 20:18; Start 12/05/18 at 21:00 Insulin Human Lispro (HumaLOG) 10 units DAILYWSUP SQ Last administered on 12/08/18 17:50; Start 12/05/18 at 17:00 Active Scripts Active Reported Atorvastatin Calcium 20 Mg Tablet 20 Mg PO QHS Amlodipine Besylate 5 Mg Tablet 5 Mg PO DAILY Acetaminophen 160 Mg/5 Ml Solution 650 Mg PO PRN Q6HRS PRN Xarelto (Rivaroxaban) 10 Mg Tablet 20 Mg PO HS Trazodone Hcl 50 Mg Tablet 50 Mg PO HS Novolog Flexpen (Insulin Aspart) 100 Unit/1 Ml Insuln.pen 17 Unit SQ DAILYWSUP Novolog Flexpen (Insulin Aspart) 100 Unit/1 Ml Insuln.pen 10 Unit SQ DAILYBFRLUN Novolog Flexpen (Insulin Aspart) 100 Unit/1 Ml Insuln.pen 10 Unit SQ DAILYWBKFT Levothyroxine Sodium 25 Mcg Tablet 25 Mcg PO DAILYAC Levemir (Insulin Detemir) 100 Unit/1 Ml Vial 5 SQ DAILY Levemir (Insulin Detemir) 100 Unit/1 Ml Vial 45 Unit SQ HS Donepezil Hcl 5 Mg Tablet 5 Mg PO DAILY Divalproex Sodium Er (Divalproex Sodium) 500 Mg Tab.er.24h 500 Mg PO DAILY Citalopram Hbr (Citalopram Hydrobromide) 10 Mg Tablet 10 Mg PO DAILYBFRSUP Lisinopril 40 Mg Tablet 40 Mg PO DAILY I have reviewed the current psychotropics carefully including drug interactions. Risk benefit ratio favors no change other than as noted in my dictated progress note. Diagnosis: Problems: (1) Anxiety disorder (2) Dementia, vascular, with delusions (3) Dementia, vascular, with depression (4) Dementia in Alzheimer's disease with delusions (5) Dementia in Alzheimer's disease with depression (6) Impulse control disorder NEGIN CRUZ MD December 08, 2018 23:37
[2018-12-09] MEDS: LEVOTHYROXINE 25 MCG TABLET. PO SCH (04:59)
[2018-12-09 05:46] VITALS: BP 111/68
[2018-12-09 07:23] LABS: BASO # 0.1 x10^3/uL (0.0-0.2); BASO % 1 % (0-3); EOS # 0.1 x10^3/uL (0.0-0.7); EOS % 2 % (0-3); HEMATOCRIT 44.8 % (39.0-53.0); HEMOGLOBIN 15.2 g/dL (13.0-17.5); LYMPH # 2.2 x10^3/uL (1.0-4.8); LYMPH % 33 % (24-48); MEAN CORPUSCULAR HEMOGLOBIN 30 pg (25-35); MEAN CORPUSCULAR HGB CONC 34 g/dL (31-37); MEAN CORPUSCULAR VOLUME 89 fL (79-100); MONO # 0.5 x10^3/uL (0.0-1.1); MONO % 7 % (0-9); NEUT % 58 % (31-73); PLATELET COUNT 212 x10^3/uL (140-400); RED BLOOD COUNT 5.03 x10^6/uL (4.30-5.70); RED CELL DISTRIBUTION WIDTH 13.4 % (11.5-14.5); WHITE BLOOD COUNT 6.9 x10^3/uL (4.0-11.0)
[2018-12-09 07:37] LABS: ALBUMIN 3.3 g/dL (3.4-5.0); ALBUMIN/GLOBULIN RATIO 0.9 (1.0-1.7); CALCIUM 8.3 mg/dL (8.5-10.1); CREATININE 1.6 mg/dL (0.7-1.3); GFR 41.8; POTASSIUM 4.5 mmol/L (3.5-5.1); TOTAL BILIRUBIN 0.5 mg/dL (0.2-1.0); TOTAL PROTEIN 6.9 g/dL (6.4-8.2)
[2018-12-09] MEDS: INSULIN LISPRO 300 UNITS/3 ML INSULN.PEN. SQ SCH ×3 (08:14→17:38)
[2018-12-09] MEDS: medroxyPROGESTERone 5 MG TABLET PO SCH (08:14)
[2018-12-09] MEDS: DONEPEZIL HCL 5 MG TABLET. PO SCH (08:14)
[2018-12-09] MEDS: LISINOPRIL 20 MG TABLET PO SCH (08:15)
[2018-12-09] MEDS: amLODIPine BESYLATE 5 MG TABLET PO SCH (08:15)
[2018-12-09] MEDS: SERTRALINE 50 MG TABLET. PO SCH (08:15)
[2018-12-09] MEDS: INSULIN GLARGINE 300 UNITS/3 ML INSULN.PEN. SQ SCH ×2 (08:17→19:44)
[2018-12-09 16:23] VITALS: BP 107/62
[2018-12-09] MEDS: traZODone 100 MG TABLET. PO SCH (19:21)
[2018-12-09] MEDS: DIVALPROEX ER 500 MG TAB.ER.24H PO SCH (19:22)
[2018-12-09] MEDS: RIVAROXABAN 15 MG TABLET. PO SCH (19:22)
[2018-12-09] MEDS: MIRTAZAPINE 7.5 MG TABLET. PO SCH (19:22)
[2018-12-09] MEDS: ATORVASTATIN CALCIUM 20 MG TABLET PO SCH (19:22)
[2018-12-10] MEDS: LEVOTHYROXINE 25 MCG TABLET. PO SCH (05:08)
[2018-12-10 05:27] VITALS: BP_SYST 102; BP_SYST 104; BP_DIAS 63; BP_DIAS 65
[2018-12-10] MEDS: INSULIN LISPRO 300 UNITS/3 ML INSULN.PEN. SQ SCH ×3 (08:00→17:33)
[2018-12-10] MEDS: amLODIPine BESYLATE 5 MG TABLET PO SCH (08:12)
[2018-12-10] MEDS: medroxyPROGESTERone 5 MG TABLET PO SCH (08:12)
[2018-12-10] MEDS: DONEPEZIL HCL 5 MG TABLET. PO SCH (08:12)
[2018-12-10] MEDS: LISINOPRIL 20 MG TABLET PO SCH (08:13)
[2018-12-10] MEDS: SERTRALINE 50 MG TABLET. PO SCH (08:13)
[2018-12-10] MEDS: INSULIN GLARGINE 300 UNITS/3 ML INSULN.PEN. SQ SCH ×2 (08:14→19:36)
--- NOTE | 2018-12-10 12:39 | PN ---
DATE: 12/09/2018 SUBJECTIVE: The patient was seen today. I met with the staff, chart reviewed and also covering for Dr. Boswell. Staff reports no major behavior problems. He has significant hearing loss and also has a right below-knee amputation. Staff reports no major behavior problems including sexual behaviors. OBSERVATION: VITAL SIGNS: Temperature 99.1, blood pressure 111/68, pulse 64, respirations 20, O2 sat 96%. Slept about 9 hours last night. LABORATORY DATA: The patient's lab reviewed. MEDICATIONS: The patient's current medications include trazodone 100 mg at night p.r.n., mirtazapine 7.5 mg at night, Depakote 1000 mg at night, and Zoloft 50 mg daily. He is also on Aricept 5 mg daily. The patient denies of any side effects. The patient has no major physical complaints. ASSESSMENT: 1. Major neurocognitive disorder, Alzheimer's, vascular with delusions, depression and behavioral disturbances. 2. Generalized anxiety disorder. 3. Impulse control disorder, unspecified. PLAN: To continue with the treatment. We will check the Depakote levels. RODRÍGUEZ MCKAY MD DR: TRAVIS/archie JOB#: [id number] / [id number]
[2018-12-10] MEDS ORDERED: IPRATRPIUM/ALBUTEROL 0.5/2.5MG 3 ML NEBU. NEB PRN (13:30)
--- NOTE | 2018-12-10 14:40 | RAD ---
EXAM: CHEST 1 VIEW History: Cough, wheezing COMPARISON: None available. TECHNIQUE: Single portable radiograph of the chest FINDINGS: The cardiac silhouette is unremarkable. Minimal prominent bilateral interstitial lung markings probably chronic interstitial changes. The costophrenic sulci are clear and well demarcated. IMPRESSION: Minimal prominent bilateral interstitial lung markings likely chronic interstitial changes. Electronically signed by: Tj Espinosa MD (12/10/2018 2:37 PM) [place] [id number]
[2018-12-10 16:23] VITALS: BP 102/62
[2018-12-10] MEDS: RIVAROXABAN 15 MG TABLET. PO SCH (19:34)
[2018-12-10] MEDS: DIVALPROEX ER 500 MG TAB.ER.24H PO SCH (19:35)
[2018-12-10] MEDS: MIRTAZAPINE 7.5 MG TABLET. PO SCH (19:35)
[2018-12-10] MEDS: traZODone 100 MG TABLET. PO SCH (19:35)
[2018-12-10] MEDS: ATORVASTATIN CALCIUM 20 MG TABLET PO SCH (19:35)
--- NOTE | 2018-12-11 05:44 | PN ---
DATE: 12/10/2018 SUBJECTIVE: The patient was seen today, met with the staff, chart reviewed. Staff reports no major behavior problems. The patient has significant hearing loss and the patient has been staying in bed most of the day today. The patient also complaining of feeling tired and weak. The patient has a right below-knee amputation. OBJECTIVE: VITAL SIGNS: Temperature 98.1, blood pressure 104/63, pulse 62, respirations 20, O2 sat 94%. Slept about 9-1/2 hours last night. The patient's current medications are reviewed and he is on trazodone 100 mg at night p.r.n., mirtazapine 7.5 mg at night, Depakote 1000 mg at night, and Zoloft 50 mg daily. He is also on Aricept 5 mg daily. The patient is not having any major physical complaints and no side effects to medications. ASSESSMENT: 1. Major neurocognitive disorder, Alzheimer's, vascular with delusions, depression, and behavioral disturbances. 2. Generalized anxiety disorder. 3. Impulse control disorder, unspecified. PLAN: To continue with the treatment. RODRÍGUEZ MCKAY MD DR: TRAVIS/archie JOB#: [id number] / [id number]
[2018-12-11] MEDS: LEVOTHYROXINE 25 MCG TABLET. PO SCH (05:56)
[2018-12-11 06:12] VITALS: BP 128/76
[2018-12-11] MEDS: INSULIN LISPRO 300 UNITS/3 ML INSULN.PEN. SQ SCH ×3 (08:00→17:27)
[2018-12-11] MEDS: medroxyPROGESTERone 5 MG TABLET PO SCH (08:07)
[2018-12-11] MEDS: DONEPEZIL HCL 5 MG TABLET. PO SCH (08:07)
[2018-12-11] MEDS: amLODIPine BESYLATE 5 MG TABLET PO SCH (08:07)
[2018-12-11] MEDS: LISINOPRIL 20 MG TABLET PO SCH (08:08)
[2018-12-11] MEDS: SERTRALINE 50 MG TABLET. PO SCH (08:08)
[2018-12-11] MEDS: INSULIN GLARGINE 300 UNITS/3 ML INSULN.PEN. SQ SCH ×2 (08:09→19:39)
[2018-12-11 16:24] VITALS: BP 96/57
[2018-12-11] MEDS: RIVAROXABAN 15 MG TABLET. PO SCH (19:37)
[2018-12-11] MEDS: traZODone 100 MG TABLET. PO SCH (19:37)
[2018-12-11] MEDS: DIVALPROEX ER 500 MG TAB.ER.24H PO SCH (19:37)
[2018-12-11] MEDS: MIRTAZAPINE 7.5 MG TABLET. PO SCH (19:37)
[2018-12-11] MEDS: ATORVASTATIN CALCIUM 20 MG TABLET PO SCH (19:37)
--- NOTE | 2018-12-12 03:55 | PN ---
DATE: 12/11/2018 SUBJECTIVE: The patient was seen today, met with the staff, chart reviewed. Staff reports that the patient continues to withdraw, isolating himself, stays in bed. The patient also has problems with the COPD and coughing frequently. The patient has a chest x-ray today. The patient also had a swallow study yesterday. OBJECTIVE: VITAL SIGNS: Temperature 98.3, blood pressure 128/76, pulse 82, respirations 18, O2 sat 92%. Slept about 7-1/2 hours last night. CURRENT MEDICATIONS: The patient's current medications include trazodone 100 mg at night p.r.n., mirtazapine 7.5 mg at night, Depakote 1000 mg at night, and Zoloft 50 mg daily. The patient is also on Aricept 5 mg daily. The patient is not having any major side effects. The patient is not presenting with any major complaints. ASSESSMENT: 1. Major neurocognitive disorder, Alzheimer's, vascular with delusions, depression, and behavioral disturbances. 2. Generalized anxiety disorder. 3. Impulse control disorder, unspecified. PLAN: To continue with the treatment. LENGTH OF STAY: Seven days. He is planned for discharge on 12/16/2018. RODRÍGUEZ MCKAY MD DR: TRAVIS/archie JOB#: [id number] / [id number]
[2018-12-12] MEDS: LEVOTHYROXINE 25 MCG TABLET. PO SCH (05:03)
[2018-12-12 05:56] VITALS: BP 116/71
[2018-12-12] MEDS: INSULIN LISPRO 300 UNITS/3 ML INSULN.PEN. SQ SCH ×3 (07:53→17:38)
[2018-12-12] MEDS: INSULIN GLARGINE 300 UNITS/3 ML INSULN.PEN. SQ SCH ×2 (07:55→20:08)
[2018-12-12] MEDS: medroxyPROGESTERone 5 MG TABLET PO SCH (07:55)
[2018-12-12] MEDS: DONEPEZIL HCL 5 MG TABLET. PO SCH (07:55)
[2018-12-12] MEDS: SERTRALINE 50 MG TABLET. PO SCH (07:55)
[2018-12-12] MEDS: LISINOPRIL 20 MG TABLET PO SCH (07:56)
[2018-12-12] MEDS: amLODIPine BESYLATE 5 MG TABLET PO SCH (07:56)
[2018-12-12 15:52] VITALS: BP 99/65
[2018-12-12] MEDS: ATORVASTATIN CALCIUM 20 MG TABLET PO SCH (20:06)
[2018-12-12] MEDS: MIRTAZAPINE 7.5 MG TABLET. PO SCH (20:06)
[2018-12-12] MEDS: RIVAROXABAN 15 MG TABLET. PO SCH (20:06)
[2018-12-12] MEDS: DIVALPROEX ER 500 MG TAB.ER.24H PO SCH (20:07)
[2018-12-12] MEDS: traZODone 100 MG TABLET. PO SCH (20:07)
--- NOTE | 2018-12-13 03:47 | PN ---
DATE: 12/12/2018 SUBJECTIVE: The patient was seen today. I met with the staff and chart reviewed. The patient stays in bed most of the time. Staff reports no major changes in his behavior. OBSERVATION: VITAL SIGNS: Temperature 97.8, blood pressure 164/62, pulse 71, respirations 20, O2 sat 97%. Slept about 7 hours last night. The patient's appetite is fair. MEDICATIONS: The patient's current medications include trazodone 100 mg at night p.r.n., mirtazapine 7.5 mg at night, Depakote 1000 mg at night, Zoloft 50 mg daily, Aricept 5 mg daily. The patient is not having any major physical problems or side effects. ASSESSMENT: 1. Major neurocognitive disorder, Alzheimer's, vascular with delusions, depression, and behavioral disturbances. 2. Generalized anxiety disorder. 3. Impulse control disorder, unspecified. PLAN: To continue with the treatment. The patient is planned for discharge on 12/16/2018. RODRÍGUEZ MCKAY MD DR: TRAVIS/archie JOB#: [id number] / [id number]
[2018-12-13] MEDS: LEVOTHYROXINE 25 MCG TABLET. PO SCH (05:21)
[2018-12-13 06:06] VITALS: BP 162/73
[2018-12-13] MEDS: INSULIN LISPRO 300 UNITS/3 ML INSULN.PEN. SQ SCH ×3 (08:00→17:00)
[2018-12-13] MEDS: SERTRALINE 50 MG TABLET. PO SCH (08:13)
[2018-12-13] MEDS: DONEPEZIL HCL 5 MG TABLET. PO SCH (08:13)
[2018-12-13] MEDS: amLODIPine BESYLATE 5 MG TABLET PO SCH (08:13)
[2018-12-13] MEDS: medroxyPROGESTERone 5 MG TABLET PO SCH (08:13)
[2018-12-13] MEDS: LISINOPRIL 20 MG TABLET PO SCH (08:14)
[2018-12-13] MEDS: INSULIN GLARGINE 300 UNITS/3 ML INSULN.PEN. SQ SCH ×2 (08:19→20:23)
[2018-12-13 15:45] VITALS: BP 113/71
--- NOTE | 2018-12-13 19:59 | PN ---
DATE: 12/13/2018 SUBJECTIVE: The patient was seen today, met with the staff, chart reviewed. The patient has not presented with any major behavior problems. The patient still isolates himself, withdrawn, quiet and also stays in bed most of the time. OBSERVATION: VITAL SIGNS: Temperature 97.6, blood pressure 116/71, pulse 67, respirations 18, O2 sat 97%. Slept about 8 hours last night. CURRENT MEDICATIONS: The patient's current medications include trazodone 100 mg at night p.r.n., mirtazapine 7.5 mg at night, Depakote 1000 mg at night, and Zoloft 50 mg daily. The patient is also on Aricept 5 mg daily. The patient denies of any side effects. The patient's lab reviewed. ASSESSMENT: 1. Major neurocognitive disorder, Alzheimer's, vascular with delusions, depression, behavioral disturbances. 2. Generalized anxiety disorder. 3. Impulse control disorder, unspecified. PLAN: To continue with the treatment. The patient is still plan for discharge on 12/16/2018. RODRÍGUEZ MCKAY MD DR: TRAVIS/archie JOB#: [id number] / [id number]
[2018-12-13] MEDS: RIVAROXABAN 15 MG TABLET. PO SCH (20:18)
[2018-12-13] MEDS: traZODone 100 MG TABLET. PO SCH (20:18)
[2018-12-13] MEDS: MIRTAZAPINE 7.5 MG TABLET. PO SCH (20:18)
[2018-12-13] MEDS: DIVALPROEX ER 500 MG TAB.ER.24H PO SCH (20:18)
[2018-12-13] MEDS: ATORVASTATIN CALCIUM 20 MG TABLET PO SCH (20:18)
[2018-12-14] MEDS ORDERED: ACET325T9 PO (02:17)
[2018-12-14] MEDS ORDERED: IPRA3AMP29 NEB (02:22)
[2018-12-14] MEDS ORDERED: MAG30ORA2 PO (02:24)
[2018-12-14] MEDS ORDERED: MAGN400O7 PO (02:25)
[2018-12-14] MEDS ORDERED: METH29OI TP (02:25)
[2018-12-14] MEDS ORDERED: MIRT15TA3 PO (02:26)
[2018-12-14] MEDS ORDERED: SERT50TA PO (02:28)
[2018-12-14] MEDS ORDERED: MEDR5TAB PO (02:31)
[2018-12-14] MEDS ORDERED: RIVA15TA PO (02:32)
[2018-12-14] MEDS ORDERED: TRAZ-86 PO (02:32)
[2018-12-14 05:39] VITALS: BP 130/83
[2018-12-14] MEDS: LEVOTHYROXINE 25 MCG TABLET. PO SCH (05:43)
[2018-12-14 07:17] LABS: BASO % 1 % (0-3); EOS # 0.2 x10^3/uL (0.0-0.7); EOS % 2 % (0-3); HEMATOCRIT 42.5 % (39.0-53.0); HEMOGLOBIN 14.4 g/dL (13.0-17.5); LYMPH # 1.8 x10^3/uL (1.0-4.8); LYMPH % 27 % (24-48); MEAN CORPUSCULAR HEMOGLOBIN 30 pg (25-35); MEAN CORPUSCULAR HGB CONC 34 g/dL (31-37); MEAN CORPUSCULAR VOLUME 89 fL (79-100); MONO # 0.5 x10^3/uL (0.0-1.1); MONO % 8 % (0-9); NEUT # 4.1 x10^3uL (1.8-7.7); NEUT % 62 % (31-73); PLATELET COUNT 199 x10^3/uL (140-400); RED CELL DISTRIBUTION WIDTH 13.5 % (11.5-14.5); WHITE BLOOD COUNT 6.6 x10^3/uL (4.0-11.0)
[2018-12-14 07:20] LABS: ALBUMIN 2.9 g/dL (3.4-5.0); ALBUMIN/GLOBULIN RATIO 0.8 (1.0-1.7); ALK PHOS 69 U/L (46-116); ALT (SGPT) 18 U/L (16-63); ANION GAP 5 (6-14); AST (SGOT) 14 U/L (15-37); BLOOD UREA NITROGEN 23 mg/dL (8-26); BUN/CREATININE RATIO 15 (6-20); CALCIUM 8.4 mg/dL (8.5-10.1); CARBON DIOXIDE 28 mmol/L (21-32); CHLORIDE 106 mmol/L (98-107); CREATININE 1.5 mg/dL (0.7-1.3); GLUCOSE 130 mg/dL (70-99); POTASSIUM 5.1 mmol/L (3.5-5.1); SODIUM 139 mmol/L (136-145); TOTAL BILIRUBIN 0.4 mg/dL (0.2-1.0); TOTAL PROTEIN 6.6 g/dL (6.4-8.2)
[2018-12-14 07:22] LABS: VAL ACID 42 mcg/mL (50-100)
[2018-12-14] MEDS: medroxyPROGESTERone 5 MG TABLET PO SCH (07:58)
[2018-12-14] MEDS: DONEPEZIL HCL 5 MG TABLET. PO SCH (07:59)
[2018-12-14] MEDS: LISINOPRIL 20 MG TABLET PO SCH (07:59)
[2018-12-14] MEDS: SERTRALINE 50 MG TABLET. PO SCH (07:59)
[2018-12-14] MEDS: amLODIPine BESYLATE 5 MG TABLET PO SCH (08:00)
[2018-12-14] MEDS: INSULIN GLARGINE 300 UNITS/3 ML INSULN.PEN. SQ SCH ×2 (08:01→19:55)
[2018-12-14] MEDS: INSULIN LISPRO 300 UNITS/3 ML INSULN.PEN. SQ SCH ×3 (08:03→17:00)
[2018-12-14 15:36] VITALS: BP 114/65
[2018-12-14] MEDS: MIRTAZAPINE 7.5 MG TABLET. PO SCH (19:49)
[2018-12-14] MEDS: RIVAROXABAN 15 MG TABLET. PO SCH (19:49)
[2018-12-14] MEDS: traZODone 100 MG TABLET. PO SCH (19:50)
[2018-12-14] MEDS: DIVALPROEX ER 500 MG TAB.ER.24H PO SCH (19:50)
[2018-12-14] MEDS: ATORVASTATIN CALCIUM 20 MG TABLET PO SCH (19:50)
[2018-12-15] MEDS: LEVOTHYROXINE 25 MCG TABLET. PO SCH (05:29)
[2018-12-15 06:13] VITALS: BP 134/77
[2018-12-15 07:30] LABS: BASO % 1 % (0-3); EOS # 0.1 x10^3/uL (0.0-0.7); EOS % 2 % (0-3); HEMOGLOBIN 14.8 g/dL (13.0-17.5); LYMPH % 28 % (24-48); MEAN CORPUSCULAR HEMOGLOBIN 31 pg (25-35); MEAN CORPUSCULAR HGB CONC 34 g/dL (31-37); MEAN CORPUSCULAR VOLUME 89 fL (79-100); MONO # 0.5 x10^3/uL (0.0-1.1); MONO % 7 % (0-9); NEUT # 4.4 x10^3uL (1.8-7.7); NEUT % 62 % (31-73); PLATELET COUNT 216 x10^3/uL (140-400); RED BLOOD COUNT 4.84 x10^6/uL (4.30-5.70); RED CELL DISTRIBUTION WIDTH 13.3 % (11.5-14.5)
[2018-12-15] MEDS: LISINOPRIL 20 MG TABLET PO SCH (07:33)
[2018-12-15] MEDS: SERTRALINE 50 MG TABLET. PO SCH (07:33)
[2018-12-15] MEDS: medroxyPROGESTERone 5 MG TABLET PO SCH (07:33)
[2018-12-15] MEDS: DONEPEZIL HCL 5 MG TABLET. PO SCH (07:33)
[2018-12-15] MEDS: amLODIPine BESYLATE 5 MG TABLET PO SCH (07:35)
[2018-12-15] MEDS: INSULIN GLARGINE 300 UNITS/3 ML INSULN.PEN. SQ SCH ×2 (07:37→20:31)
[2018-12-15] MEDS: INSULIN LISPRO 300 UNITS/3 ML INSULN.PEN. SQ SCH ×3 (07:39→17:00)
[2018-12-15 07:59] LABS: ALBUMIN/GLOBULIN RATIO 0.8 (1.0-1.7); CALCIUM 8.5 mg/dL (8.5-10.1); CREATININE 1.4 mg/dL (0.7-1.3); GFR 48.8; POTASSIUM 4.6 mmol/L (3.5-5.1); TOTAL BILIRUBIN 0.4 mg/dL (0.2-1.0); TOTAL PROTEIN 6.6 g/dL (6.4-8.2)
[2018-12-15 16:04] VITALS: BP 100/62
[2018-12-15] MEDS: DIVALPROEX ER 500 MG TAB.ER.24H PO SCH (20:00)
[2018-12-15] MEDS: RIVAROXABAN 15 MG TABLET. PO SCH (20:01)
[2018-12-15] MEDS: MIRTAZAPINE 7.5 MG TABLET. PO SCH (20:01)
[2018-12-15] MEDS: ATORVASTATIN CALCIUM 20 MG TABLET PO SCH (20:01)
[2018-12-15] MEDS: traZODone 100 MG TABLET. PO SCH (20:01)
[2018-12-16] MEDS: LEVOTHYROXINE 25 MCG TABLET. PO SCH (05:50)
[2018-12-16 06:01] VITALS: BP 141/68
[2018-12-16] MEDS: amLODIPine BESYLATE 5 MG TABLET PO SCH (07:48)
[2018-12-16] MEDS: medroxyPROGESTERone 5 MG TABLET PO SCH (07:50)
[2018-12-16] MEDS: LISINOPRIL 20 MG TABLET PO SCH (07:50)
[2018-12-16] MEDS: DONEPEZIL HCL 5 MG TABLET. PO SCH (07:50)
[2018-12-16] MEDS: SERTRALINE 50 MG TABLET. PO SCH (07:50)
[2018-12-16] MEDS: INSULIN LISPRO 300 UNITS/3 ML INSULN.PEN. SQ SCH ×3 (08:00→18:15)
[2018-12-16] MEDS: INSULIN GLARGINE 300 UNITS/3 ML INSULN.PEN. SQ SCH ×2 (08:21→20:22)
[2018-12-16 16:33] VITALS: BP 111/69
[2018-12-16] MEDS: RIVAROXABAN 15 MG TABLET. PO SCH (19:42)
[2018-12-16] MEDS: ATORVASTATIN CALCIUM 20 MG TABLET PO SCH (19:42)
[2018-12-16] MEDS: MIRTAZAPINE 7.5 MG TABLET. PO SCH (19:42)
[2018-12-16] MEDS: DIVALPROEX ER 500 MG TAB.ER.24H PO SCH (19:42)
[2018-12-16] MEDS: traZODone 100 MG TABLET. PO SCH (19:43)
--- NOTE | 2018-12-16 22:47 | PDOC ---
Exam Note: Dwain Note: Please also refer to the separate dictated note~for this date of service dictated separately.~Patient seen individually. Discussed the patient with Nursing staff reviewed the chart.~Reviewed interim history and current functioning. Reviewed vital signs,~Labs/ Radiology~and current medications noted below. Continue current treatment with the changes noted in the dictated addendum note Assessment: Vital Signs: Vital Signs Date Time Temp Pulse Resp B/P (MAP) Pulse Ox O2 Delivery O2 Flow Rate FiO2 12/16/18 16:33 97.6 79 16 111/69 (83) 96 12/14/18 15:36 Room Air 12/14/18 05:39 0.0 I&O Intake and Output 12/16/18 07:00 Intake Total 1040 ml Balance 1040 ml Intake Oral 1040 ml # Bowel Movements 1 Labs: Laboratory Tests Test 12/16/18 07:55 12/16/18 11:48 12/16/18 17:09 12/16/18 20:07 Glucose (Fingerstick) 71 mg/dL (70-99) 189 mg/dL (70-99) H 185 mg/dL (70-99) H 175 mg/dL (70-99) H Current Medications: Meds: Current Medications Rivaroxaban (Xarelto) 20 mg HS PO Last administered on 11/25/18at 22:08; Start 11/25/18 at 21:00; Stop 11/26/18 at 14:13; Status DC Insulin Glargine (Lantus) 45 units QHS SQ Last administered on 12/04/18at 20:56; Start 11/25/18 at 21:00; Stop 12/05/18 at 14:08; Status DC Atorvastatin Calcium (Lipitor) 20 mg QHS PO Last administered on 12/16/18at 19:42; Start 11/26/18 at 21:00 Citalopram Hydrobromide (CeleXA) 10 mg DAILYBFRSUP PO Last administered on 11/26/18at 16:02; Start 11/26/18 at 17:00; Stop 11/27/18 at 11:53; Status DC Rivaroxaban (Xarelto) 20 mg HS PO ; Start 11/26/18 at 21:00; Stop 11/26/18 at 21:00; Status DC Acetaminophen (Tylenol) 650 mg PRN Q6HRS PRN PO PAIN / TEMP; Start 11/25/18 at 22:00 Amlodipine Besylate (Norvasc) 5 mg DAILY PO Last administered on 12/16/18 07:48; Start 11/26/18 at 09:00 Divalproex Sodium (Depakote Er) 500 mg DAILY PO Last administered on 11/27/18 09:00; Start 11/26/18 at 09:00; Stop 11/27/18 at 11:53; Status DC Donepezil HCl (Aricept) 5 mg DAILY PO Last administered on 12/16/18 07:50; Start 11/26/18 at 09:00 Insulin Human Lispro (HumaLOG) 10 units DAILYBFRLUN SQ Last administered on 12/16/18at 12:48; Start 11/26/18 at 11:30 Insulin Human Lispro (HumaLOG) 10 units DAILYWBKFT SQ Last administered on 12/15/18at 07:39; Start 11/26/18 at 08:00 Insulin Human Lispro (HumaLOG) 17 units DAILYWSUP SQ Last administered on 12/04/18at 17:37; Start 11/26/18 at 17:00; Stop 12/05/18 at 14:09; Status DC Insulin Glargine (Lantus) 5 units DAILY SQ Last administered on 12/16/18 08:21; Start 11/26/18 at 09:00 Non-Formulary Medication (Insulin Detemir (Levemir)) 45 unit HS SQ ; Start 11/26/18 at 21:00; Stop 11/26/18 at 21:00; Status DC Levothyroxine Sodium (Synthroid) 25 mcg DAILY06 PO Last administered on 12/16/18at 05:50; Start 11/26/18 at 06:00 Lisinopril (Prinivil) 40 mg DAILY PO Last administered on 12/16/18 07:50; Start 11/26/18 at 09:00 Trazodone HCl (Desyrel) 50 mg QHS PO Last administered on 12/03/18 19:30; Start 11/25/18 at 22:00; Stop 12/04/18 at 18:39; Status DC Acetaminophen (Tylenol) 650 mg PRN Q6HRS PRN PO PAIN / TEMP; Start 11/25/18 at 23:30; Status UNV Multi-Ingredient Ointment (Analgesic [place]) 1 huseyin PRN QID PRN TP MUSCLE PAIN; Start 11/25/18 at 23:30 Al Hydroxide/Mg Hydroxide (Mylanta Plus Xs) 15 ml PRN AFTMEALHC PRN PO DYSPEPSIA; Start 11/25/18 at 23:30 Magnesium Hydroxide (Milk Of Magnesia) 2,400 mg PRN QHS PRN PO CONSTIPATION; Start 11/25/18 at 23:30 Rivaroxaban (Xarelto) 15 mg QHS PO Last administered on 12/16/18 19:42; Start 11/26/18 at 21:00 Divalproex Sodium (Depakote Er) 750 mg HS PO Last administered on 11/30/18 19:24; Start 11/28/18 at 21:00; Stop 11/30/18 at 20:48; Status DC Sertraline HCl (Zoloft) 50 mg DAILY PO Last administered on 12/16/18at 07:50; Start 11/28/18 at 09:00 Divalproex Sodium (Depakote Er) 250 mg 1X ONCE PO Last administered on 11/27/18at 12:08; Start 11/27/18 at 11:45; Stop 11/27/18 at 11:58; Status DC Medroxyprogesterone Acetate (Provera) 2.5 mg DAILY PO Last administered on 08:03; Start 11/29/18 at 09:00; Stop 12/01/18 at 09:01; Status DC Medroxyprogesterone Acetate (Provera) 5 mg DAILY PO Last administered on 12/16/18at 07:50; Start 12/02/18 at 09:00 Divalproex Sodium (Depakote Er) 1,000 mg QHS PO Last administered on 12/16/18 19:42; Start 12/01/18 at 21:00 Trazodone HCl (Desyrel) 50 mg PRN QHS PRN PO INSOMNIA Last administered on 12/03/18 19:32; Start 12/02/18 at 17:45; Stop 12/04/18 at 18:39; Status DC Mirtazapine (Remeron) 7.5 mg QHS PO Last administered on 12/16/18at 19:42; Start 12/03/18 at 21:00 Trazodone HCl (Desyrel) 100 mg QHS PO Last administered on 12/16/18at 19:43; Start 12/04/18 at 21:00 Trazodone HCl (Desyrel) 100 mg PRN QHS PRN PO INSOMNIA; Start 12/04/18 at 19:00 Insulin Glargine (Lantus) 30 units QHS SQ Last administered on 12/16/18at 20:22; Start 12/05/18 at 21:00 Insulin Human Lispro (HumaLOG) 10 units DAILYWSUP SQ Last administered on 12/16/18at 18:15; Start 12/05/18 at 17:00 Albuterol/ Ipratropium (Duoneb) 3 ml PRN QID PRN NEB COUGH Last administered on 12/11/18at 11:14; Start 12/10/18 at 13:30 Active Scripts Active Reported Xarelto (Rivaroxaban) 15 Mg Tablet 15 Mg PO QHS Trazodone Hcl 100 Mg Tablet 100 Mg PO PRN QHS PRN Provera (Medroxyprogesterone Acetate) 5 Mg Tablet 5 Mg PO DAILY Zoloft (Sertraline Hcl) 50 Mg Tablet 50 Mg PO DAILY Mirtazapine 15 Mg Tablet 7.5 Mg PO QHS Analgesic [place] (Methyl Salicylate/Menthol) 28 Gm Oint...g. 1 Huseyin TP PRN QID PRN Milk Of Magnesia (Magnesium Hydroxide) 400 Mg/5 Ml Oral.susp 2,400 Mg PO PRN QHS PRN Mag-Al Plus Xs Suspension (Mag Hydrox/Al Hydrox/Simeth) 30 Ml Oral.susp 15 Ml PO PRN AFTMEALHC PRN Duoneb 0.5-3(2.5) Mg/3 Ml (Albuterol/Ipratropium) 3 Ml Ampul.neb 3 Ml NEB PRN QID PRN Atorvastatin Calcium 20 Mg Tablet 20 Mg PO QHS Amlodipine Besylate 5 Mg Tablet 5 Mg PO DAILY Acetaminophen 160 Mg/5 Ml Solution 650 Mg PO PRN Q6HRS PRN Trazodone Hcl 50 Mg Tablet 100 Mg PO HS Novolog Flexpen (Insulin Aspart) 100 Unit/1 Ml Insuln.pen 10 Unit SQ DAILYWSUP Novolog Flexpen (Insulin Aspart) 100 Unit/1 Ml Insuln.pen 10 Unit SQ DAILYBFRLUN Novolog Flexpen (Insulin Aspart) 100 Unit/1 Ml Insuln.pen 10 Unit SQ DAILYWBKFT Levothyroxine Sodium 25 Mcg Tablet 25 Mcg PO DAILY06 Levemir (Insulin Detemir) 100 Unit/1 Ml Vial 5 SQ DAILY Levemir (Insulin Detemir) 100 Unit/1 Ml Vial 30 Unit SQ HS Donepezil Hcl 5 Mg Tablet 5 Mg PO DAILY Divalproex Sodium Er (Divalproex Sodium) 500 Mg Tab.er.24h 1,000 Mg PO QHS Lisinopril 40 Mg Tablet 40 Mg PO DAILY I have reviewed the current psychotropics carefully including drug interactions. Risk benefit ratio favors no change other than as noted in my dictated progress note. 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
[2018-12-17] MEDS: LEVOTHYROXINE 25 MCG TABLET. PO SCH (05:03)
[2018-12-17 06:20] VITALS: BP 160/71
[2018-12-17] MEDS: medroxyPROGESTERone 5 MG TABLET PO SCH (07:45)
[2018-12-17] MEDS: amLODIPine BESYLATE 5 MG TABLET PO SCH (07:45)
[2018-12-17] MEDS: LISINOPRIL 20 MG TABLET PO SCH (07:46)
[2018-12-17] MEDS: DONEPEZIL HCL 5 MG TABLET. PO SCH (07:46)
[2018-12-17] MEDS: SERTRALINE 50 MG TABLET. PO SCH (07:46)
[2018-12-17] MEDS: INSULIN GLARGINE 300 UNITS/3 ML INSULN.PEN. SQ SCH ×2 (07:48→20:08)
[2018-12-17] MEDS: INSULIN LISPRO 300 UNITS/3 ML INSULN.PEN. SQ SCH ×3 (07:50→17:30)
[2018-12-17 16:04] VITALS: BP 106/62
--- NOTE | 2018-12-17 16:29 | PN ---
DATE: 12/16/2018 This is a late entry, date of service 12/16/2018, covers elements not covered in my initial note. SUBJECTIVE: I met with the patient individually in his room. Discussed with nursing staff, reviewed the chart. Initially discharge plans included the [facility]. Per report from staff; however, the patient has been quite withdrawn, somewhat delusional, suspicious. He is not aggressive or sexually inappropriate, but baseline symptoms currently problematic considering what prompted this admission. We postpone the discharge for now. 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 No CV, , pulmonary, eye system symptoms on review. MENTAL STATUS EXAM: Oriented to himself. Insight, judgment, recent and remote memory, attention, concentration, fund of knowledge poor, consistent with his diagnoses. He is quite withdrawn. LABORATORY DATA: Reviewed. IMPRESSION: Major neurocognitive disorder, Alzheimer, vascular with delusion, depression, behavioral disturbance. Rest unchanged. PLAN: Continue psychotropics from initial note including Zoloft, Depakote, Aricept, trazodone and Provera, Remeron. May need to adjust Zoloft gradually. NEGIN CRUZ MD DR: JADA/archie JOB#: [id number] / [id number]
[2018-12-17] MEDS: RIVAROXABAN 15 MG TABLET. PO SCH (19:21)
[2018-12-17] MEDS: MIRTAZAPINE 7.5 MG TABLET. PO SCH (19:21)
[2018-12-17] MEDS: traZODone 100 MG TABLET. PO SCH (19:21)
[2018-12-17] MEDS: DIVALPROEX ER 500 MG TAB.ER.24H PO SCH (19:21)
[2018-12-17] MEDS: ATORVASTATIN CALCIUM 20 MG TABLET PO SCH (19:21)
--- NOTE | 2018-12-17 19:53 | PDOC ---
Exam Note: Dwain Note: Admission Date: Nov 25, 2018 at 19:01 * A recertification for continued Inpatient Psychiatric Admission must be done on Day 12, Day 18 and Day 30. Please also refer to the separate dictated note~for this date of service dictated separately.~Patient seen individually. Discussed the patient with Nursing staff reviewed the chart.~Reviewed interim history and current functioning. Reviewed vital signs,~Labs/ Radiology~and current medications noted below. Continue current treatment with the changes noted in the dictated addendum note Assessment: Vital Signs: Vital Signs Date Time Temp Pulse Resp B/P (MAP) Pulse Ox O2 Delivery O2 Flow Rate FiO2 12/17/18 16:04 97.4 68 20 106/62 (77) 96 12/14/18 15:36 Room Air 12/14/18 05:39 0.0 I&O Intake and Output 12/17/18 07:00 Intake Total 920 ml Balance 920 ml Intake Oral 920 ml Labs: Laboratory Tests Test 12/16/18 20:07 12/17/18 07:26 12/17/18 11:37 12/17/18 16:32 Glucose (Fingerstick) 175 mg/dL (70-99) H 83 mg/dL (70-99) 206 mg/dL (70-99) H 269 mg/dL (70-99) H Test 12/17/18 19:44 Glucose (Fingerstick) 216 mg/dL (70-99) H Current Medications: Meds: Current Medications Rivaroxaban (Xarelto) 20 mg HS PO Last administered on 11/25/18at 22:08; Start 11/25/18 at 21:00; Stop 11/26/18 at 14:13; Status DC Insulin Glargine (Lantus) 45 units QHS SQ Last administered on 12/04/18at 20:56; Start 11/25/18 at 21:00; Stop 12/05/18 at 14:08; Status DC Atorvastatin Calcium (Lipitor) 20 mg QHS PO Last administered on 12/17/18at 19:21; Start 11/26/18 at 21:00 Citalopram Hydrobromide (CeleXA) 10 mg DAILYBFRSUP PO Last administered on 11/26/18at 16:02; Start 11/26/18 at 17:00; Stop 11/27/18 at 11:53; Status DC Rivaroxaban (Xarelto) 20 mg HS PO ; Start 11/26/18 at 21:00; Stop 11/26/18 at 21:00; Status DC Acetaminophen (Tylenol) 650 mg PRN Q6HRS PRN PO PAIN / TEMP; Start 11/25/18 at 22:00 Amlodipine Besylate (Norvasc) 5 mg DAILY PO Last administered on 12/17/18at 07:45; Start 11/26/18 at 09:00 Divalproex Sodium (Depakote Er) 500 mg DAILY PO Last administered on 11/27/18at 09:00; Start 11/26/18 at 09:00; Stop 11/27/18 at 11:53; Status DC Donepezil HCl (Aricept) 5 mg DAILY PO Last administered on 12/17/18at 07:46; Start 11/26/18 at 09:00 Insulin Human Lispro (HumaLOG) 10 units DAILYBFRLUN SQ Last administered on 12/17/18at 12:02; Start 11/26/18 at 11:30 Insulin Human Lispro (HumaLOG) 10 units DAILYWBKFT SQ Last administered on 12/15/18at 07:39; Start 11/26/18 at 08:00 Insulin Human Lispro (HumaLOG) 17 units DAILYWSUP SQ Last administered on 12/04/18at 17:37; Start 11/26/18 at 17:00; Stop 12/05/18 at 14:09; Status DC Insulin Glargine (Lantus) 5 units DAILY SQ Last administered on 12/17/18at 07:48; Start 11/26/18 at 09:00 Non-Formulary Medication (Insulin Detemir (Levemir)) 45 unit HS SQ ; Start 11/26/18 at 21:00; Stop 11/26/18 at 21:00; Status DC Levothyroxine Sodium (Synthroid) 25 mcg DAILY06 PO Last administered on 12/17/18at 05:03; Start 11/26/18 at 06:00 Lisinopril (Prinivil) 40 mg DAILY PO Last administered on 12/17/18at 07:46; Start 11/26/18 at 09:00 Trazodone HCl (Desyrel) 50 mg QHS PO Last administered on 12/03/18 19:30; Start 11/25/18 at 22:00; Stop 12/04/18 at 18:39; Status DC Acetaminophen (Tylenol) 650 mg PRN Q6HRS PRN PO PAIN / TEMP; Start 11/25/18 at 23:30; Status UNV Multi-Ingredient Ointment (Analgesic [place]) 1 huseyin PRN QID PRN TP MUSCLE PAIN; Start 11/25/18 at 23:30 Al Hydroxide/Mg Hydroxide (Mylanta Plus Xs) 15 ml PRN AFTMEALHC PRN PO DYSPEPSIA; Start 11/25/18 at 23:30 Magnesium Hydroxide (Milk Of Magnesia) 2,400 mg PRN QHS PRN PO CONSTIPATION; Start 11/25/18 at 23:30 Rivaroxaban (Xarelto) 15 mg QHS PO Last administered on 12/17/18at 19:21; Start 11/26/18 at 21:00 Divalproex Sodium (Depakote Er) 750 mg HS PO Last administered on 11/30/18at 19:24; Start 11/28/18 at 21:00; Stop 11/30/18 at 20:48; Status DC Sertraline HCl (Zoloft) 50 mg DAILY PO Last administered on 12/17/18at 07:46; Start 11/28/18 at 09:00; Stop 12/17/18 at 17:14; Status DC Divalproex Sodium (Depakote Er) 250 mg 1X ONCE PO Last administered on 11/27/18at 12:08; Start 11/27/18 at 11:45; Stop 11/27/18 at 11:58; Status DC Medroxyprogesterone Acetate (Provera) 2.5 mg DAILY PO Last administered on 12/01/18 08:03; Start 11/29/18 at 09:00; Stop 12/01/18 at 09:01; Status DC Medroxyprogesterone Acetate (Provera) 5 mg DAILY PO Last administered on 12/17/18at 07:45; Start 12/02/18 at 09:00 Divalproex Sodium (Depakote Er) 1,000 mg QHS PO Last administered on 12/17/18at 19:21; Start 12/01/18 at 21:00 Trazodone HCl (Desyrel) 50 mg PRN QHS PRN PO INSOMNIA Last administered on 12/03/18at 19:32; Start 12/02/18 at 17:45; Stop 12/04/18 at 18:39; Status DC Mirtazapine (Remeron) 7.5 mg QHS PO Last administered on 12/17/18at 19:21; Star t 12/03/18 at 21:00 Trazodone HCl (Desyrel) 100 mg QHS PO Last administered on 12/17/18at 19:21; Start 12/04/18 at 21:00 Trazodone HCl (Desyrel) 100 mg PRN QHS PRN PO INSOMNIA; Start 12/04/18 at 19:00 Insulin Glargine (Lantus) 30 units QHS SQ Last administered on 12/16/18at 20:22; Start 12/05/18 at 21:00 Insulin Human Lispro (HumaLOG) 10 units DAILYWSUP SQ Last administered on 12/17/18at 17:30; Start 12/05/18 at 17:00 Albuterol/ Ipratropium (Duoneb) 3 ml PRN QID PRN NEB COUGH Last administered on 12/11/18at 11:14; Start 12/10/18 at 13:30 Sertraline HCl (Zoloft) 75 mg DAILY PO ; Start 12/18/18 at 09:00 Bupropion HCl (Wellbutrin Xl) 150 mg DAILY PO ; Start 12/18/18 at 09:00 Active Scripts Active Reported Xarelto (Rivaroxaban) 15 Mg Tablet 15 Mg PO QHS Trazodone Hcl 100 Mg Tablet 100 Mg PO PRN QHS PRN Provera (Medroxyprogesterone Acetate) 5 Mg Tablet 5 Mg PO DAILY Zoloft (Sertraline Hcl) 50 Mg Tablet 50 Mg PO DAILY Mirtazapine 15 Mg Tablet 7.5 Mg PO QHS Analgesic [place] (Methyl Salicylate/Menthol) 28 Gm Oint...g. 1 Huseyin TP PRN QID PRN Milk Of Magnesia (Magnesium Hydroxide) 400 Mg/5 Ml Oral.susp 2,400 Mg PO PRN QHS PRN Mag-Al Plus Xs Suspension (Mag Hydrox/Al Hydrox/Simeth) 30 Ml Oral.susp 15 Ml PO PRN AFTMEALHC PRN Duoneb 0.5-3(2.5) Mg/3 Ml (Albuterol/Ipratropium) 3 Ml Ampul.neb 3 Ml NEB PRN QID PRN Atorvastatin Calcium 20 Mg Tablet 20 Mg PO QHS Amlodipine Besylate 5 Mg Tablet 5 Mg PO DAILY Acetaminophen 160 Mg/5 Ml Solution 650 Mg PO PRN Q6HRS PRN Trazodone Hcl 50 Mg Tablet 100 Mg PO HS Novolog Flexpen (Insulin Aspart) 100 Unit/1 Ml Insuln.pen 10 Unit SQ DAILYWSUP Novolog Flexpen (Insulin Aspart) 100 Unit/1 Ml Insuln.pen 10 Unit SQ DAILYBFRLUN Novolog Flexpen (Insulin Aspart) 100 Unit/1 Ml Insuln.pen 10 Unit SQ DAILYWBKFT Levothyroxine Sodium 25 Mcg Tablet 25 Mcg PO DAILY06 Levemir (Insulin Detemir) 100 Unit/1 Ml Vial 5 SQ DAILY Levemir (Insulin Detemir) 100 Unit/1 Ml Vial 30 Unit SQ HS Donepezil Hcl 5 Mg Tablet 5 Mg PO DAILY Divalproex Sodium Er (Divalproex Sodium) 500 Mg Tab.er.24h 1,000 Mg PO QHS Lisinopril 40 Mg Tablet 40 Mg PO DAILY I have reviewed the current psychotropics carefully including drug interactions. Risk benefit ratio favors no change other than as noted in my dictated progress note. 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
[2018-12-18] MEDS: LEVOTHYROXINE 25 MCG TABLET. PO SCH (05:40)
[2018-12-18 06:16] VITALS: BP 132/83
[2018-12-18] MEDS: INSULIN LISPRO 300 UNITS/3 ML INSULN.PEN. SQ SCH ×3 (08:00→17:39)
[2018-12-18] MEDS: medroxyPROGESTERone 5 MG TABLET PO SCH (08:10)
[2018-12-18] MEDS: DONEPEZIL HCL 5 MG TABLET. PO SCH (08:11)
[2018-12-18] MEDS: amLODIPine BESYLATE 5 MG TABLET PO SCH (08:11)
[2018-12-18] MEDS: LISINOPRIL 20 MG TABLET PO SCH (08:11)
[2018-12-18] MEDS: INSULIN GLARGINE 300 UNITS/3 ML INSULN.PEN. SQ SCH ×2 (08:12→19:55)
[2018-12-18] MEDS: SERTRALINE 50 MG TABLET. PO SCH (08:13)
[2018-12-18] MEDS: buPROPion XL 150 MG TAB.ER.24H PO SCH (08:14)
[2018-12-18 15:56] VITALS: BP 133/73
[2018-12-18] MEDS: MIRTAZAPINE 7.5 MG TABLET. PO SCH (19:07)
[2018-12-18] MEDS: RIVAROXABAN 15 MG TABLET. PO SCH (19:07)
[2018-12-18] MEDS: DIVALPROEX ER 500 MG TAB.ER.24H PO SCH (19:07)
[2018-12-18] MEDS: ATORVASTATIN CALCIUM 20 MG TABLET PO SCH (19:07)
[2018-12-18] MEDS: traZODone 100 MG TABLET. PO SCH (19:07)
--- NOTE | 2018-12-18 20:50 | PN ---
DATE: 12/17/2018 PSYCHIATRIC PROGRESS NOTE This late entry 12/17/2018 covers elements not covered in my initial note. SUBJECTIVE: I met with the patient in the evening of 12/17/2018 in his room. The patient remains withdrawn, spends much time in bed. He did come out in the hallway earlier in the evening. REVIEW OF SYSTEMS: Hard of hearing, impaired ambulation, in wheelchair due to below-knee amputation on the right side. No CV, , pulmonary, eye, ENT system symptoms on review other than above. MENTAL STATUS EXAM: Oriented to himself. Insight, judgment, recent and remote memory, attention, concentration, fund of knowledge poor, consistent with his diagnosis mentioned in my initial note. PLAN: No change from initial note and we will go ahead and increase Zoloft to 75 mg a day and start Wellbutrin-XL 150 mg a day in the morning to augment the Zoloft and help stimulate him more during the day and activate him. Rest unchanged. MAN Dulce CRUZ MD DR: JADA/archie JOB#: [id number] / [id number]
--- NOTE | 2018-12-18 21:52 | PDOC ---
Exam Note: Dwain Note: Please also refer to the separate dictated note~for this date of service dictated separately.~Patient seen individually. Discussed the patient with Nursing staff reviewed the chart.~Reviewed interim history and current functioning. Reviewed vital signs,~Labs/ Radiology~and current medications noted below. Continue current treatment with the changes noted in the dictated addendum note Assessment: Vital Signs: Vital Signs Date Time Temp Pulse Resp B/P (MAP) Pulse Ox O2 Delivery O2 Flow Rate FiO2 12/18/18 15:56 97.7 75 18 133/73 (93) 97 12/14/18 15:36 Room Air 12/14/18 05:39 0.0 I&O Intake and Output 12/18/18 07:00 Intake Total 1560 ml Balance 1560 ml Intake Oral 1560 ml # Bowel Movements 1 Labs: Laboratory Tests Test 12/18/18 07:31 12/18/18 11:30 12/18/18 17:14 12/18/18 19:37 Glucose (Fingerstick) 78 mg/dL (70-99) 154 mg/dL (70-99) H 140 mg/dL (70-99) H 216 mg/dL (70-99) H Current Medications: Meds: Current Medications Rivaroxaban (Xarelto) 20 mg HS PO Last administered on 11/25/18at 22:08; Start 11/25/18 at 21:00; Stop 11/26/18 at 14:13; Status DC Insulin Glargine (Lantus) 45 units QHS SQ Last administered on 12/04/18at 20:56; Start 11/25/18 at 21:00; Stop 12/05/18 at 14:08; Status DC Atorvastatin Calcium (Lipitor) 20 mg QHS PO Last administered on 12/18/18at 19:07; Start 11/26/18 at 21:00 Citalopram Hydrobromide (CeleXA) 10 mg DAILYBFRSUP PO Last administered on 11/26/18at 16:02; Start 11/26/18 at 17:00; Stop 11/27/18 at 11:53; Status DC Rivaroxaban (Xarelto) 20 mg HS PO ; Start 11/26/18 at 21:00; Stop 11/26/18 at 21:00; Status DC Acetaminophen (Tylenol) 650 mg PRN Q6HRS PRN PO PAIN / TEMP; Start 11/25/18 at 22:00 Amlodipine Besylate (Norvasc) 5 mg DAILY PO Last administered on 12/18/18 08:11; Start 11/26/18 at 09:00 Divalproex Sodium (Depakote Er) 500 mg DAILY PO Last administered on 11/27/18 09:00; Start 11/26/18 at 09:00; Stop 11/27/18 at 11:53; Status DC Donepezil HCl (Aricept) 5 mg DAILY PO Last administered on 12/18/18 08:11; Start 11/26/18 at 09:00 Insulin Human Lispro (HumaLOG) 10 units DAILYBFRLUN SQ Last administered on 12/18/18 12:29; Start 11/26/18 at 11:30 Insulin Human Lispro (HumaLOG) 10 units DAILYWBKFT SQ Last administered on 12/15/18at 07:39; Start 11/26/18 at 08:00 Insulin Human Lispro (HumaLOG) 17 units DAILYWSUP SQ Last administered on 12/04/18at 17:37; Start 11/26/18 at 17:00; Stop 12/05/18 at 14:09; Status DC Insulin Glargine (Lantus) 5 units DAILY SQ Last administered on 12/18/18 08:12; Start 11/26/18 at 09:00 Non-Formulary Medication (Insulin Detemir (Levemir)) 45 unit HS SQ ; Start 11/26/18 at 21:00; Stop 11/26/18 at 21:00; Status DC Levothyroxine Sodium (Synthroid) 25 mcg DAILY06 PO Last administered on 12/18/18at 05:40; Start 11/26/18 at 06:00 Lisinopril (Prinivil) 40 mg DAILY PO Last administered on 12/18/18 08:11; Start 11/26/18 at 09:00 Trazodone HCl (Desyrel) 50 mg QHS PO Last administered on 12/03/18 19:30; Start 11/25/18 at 22:00; Stop 12/04/18 at 18:39; Status DC Acetaminophen (Tylenol) 650 mg PRN Q6HRS PRN PO PAIN / TEMP; Start 11/25/18 at 23:30; Status UNV Multi-Ingredient Ointment (Analgesic [place]) 1 huseyin PRN QID PRN TP MUSCLE PAIN; Start 11/25/18 at 23:30 Al Hydroxide/Mg Hydroxide (Mylanta Plus Xs) 15 ml PRN AFTMEALHC PRN PO DYSPEPSIA; Start 11/25/18 at 23:30 Magnesium Hydroxide (Milk Of Magnesia) 2,400 mg PRN QHS PRN PO CONSTIPATION; Start 11/25/18 at 23:30 Rivaroxaban (Xarelto) 15 mg QHS PO Last administered on 12/18/18 19:07; Start 11/26/18 at 21:00 Divalproex Sodium (Depakote Er) 750 mg HS PO Last administered on 11/30/18 19:24; Start 11/28/18 at 21:00; Stop 11/30/18 at 20:48; Status DC Sertraline HCl (Zoloft) 50 mg DAILY PO Last administered on 12/17/18at 07:46; Start 11/28/18 at 09:00; Stop 12/17/18 at 17:14; Status DC Divalproex Sodium (Depakote Er) 250 mg 1X ONCE PO Last administered on 11/27/18at 12:08; Start 11/27/18 at 11:45; Stop 11/27/18 at 11:58; Status DC Medroxyprogesterone Acetate (Provera) 2.5 mg DAILY PO Last administered on 12/01/18 08:03; Start 11/29/18 at 09:00; Stop 12/01/18 at 09:01; Status DC Medroxyprogesterone Acetate (Provera) 5 mg DAILY PO Last administered on 12/18/18at 08:10; Start 12/02/18 at 09:00 Divalproex Sodium (Depakote Er) 1,000 mg QHS PO Last administered on 12/18/18at 19:07; Start 12/01/18 at 21:00 Trazodone HCl (Desyrel) 50 mg PRN QHS PRN PO INSOMNIA Last administered on 12/03/18at 19:32; Start 12/02/18 at 17:45; Stop 12/04/18 at 18:39; Status DC Mirtazapine (Remeron) 7.5 mg QHS PO Last administered on 12/18/18 19:07; Start 12/03/18 at 21:00 Trazodone HCl (Desyrel) 100 mg QHS PO Last administered on 12/18/18at 19:07; Start 12/04/18 at 21:00 Trazodone HCl (Desyrel) 100 mg PRN QHS PRN PO INSOMNIA; Start 12/04/18 at 19:00 Insulin Glargine (Lantus) 30 units QHS SQ Last administered on 12/18/18 19:55; Start 12/05/18 at 21:00 Insulin Human Lispro (HumaLOG) 10 units DAILYWSUP SQ Last administered on 12/18/18 17:39; Start 12/05/18 at 17:00 Albuterol/ Ipratropium (Duoneb) 3 ml PRN QID PRN NEB COUGH Last administered on 12/11/18 11:14; Start 12/10/18 at 13:30 Sertraline HCl (Zoloft) 75 mg DAILY PO Last administered on 12/18/18at 08:13; Start 12/18/18 at 09:00 Bupropion HCl (Wellbutrin Xl) 150 mg DAILY PO Last administered on 12/18/18 08:14; Start 12/18/18 at 09:00 Active Scripts Active Reported Xarelto (Rivaroxaban) 15 Mg Tablet 15 Mg PO QHS Trazodone Hcl 100 Mg Tablet 100 Mg PO PRN QHS PRN Provera (Medroxyprogesterone Acetate) 5 Mg Tablet 5 Mg PO DAILY Zoloft (Sertraline Hcl) 50 Mg Tablet 50 Mg PO DAILY Mirtazapine 15 Mg Tablet 7.5 Mg PO QHS Analgesic [place] (Methyl Salicylate/Menthol) 28 Gm Oint...g. 1 Huseyin TP PRN QID PRN Milk Of Magnesia (Magnesium Hydroxide) 400 Mg/5 Ml Oral.susp 2,400 Mg PO PRN QHS PRN Mag-Al Plus Xs Suspension (Mag Hydrox/Al Hydrox/Simeth) 30 Ml Oral.susp 15 Ml PO PRN AFTMEALHC PRN Duoneb 0.5-3(2.5) Mg/3 Ml (Albuterol/Ipratropium) 3 Ml Ampul.neb 3 Ml NEB PRN QID PRN Atorvastatin Calcium 20 Mg Tablet 20 Mg PO QHS Amlodipine Besylate 5 Mg Tablet 5 Mg PO DAILY Acetaminophen 160 Mg/5 Ml Solution 650 Mg PO PRN Q6HRS PRN Trazodone Hcl 50 Mg Tablet 100 Mg PO HS Novolog Flexpen (Insulin Aspart) 100 Unit/1 Ml Insuln.pen 10 Unit SQ DAILYWSUP Novolog Flexpen (Insulin Aspart) 100 Unit/1 Ml Insuln.pen 10 Unit SQ DAILYBFRLUN Novolog Flexpen (Insulin Aspart) 100 Unit/1 Ml Insuln.pen 10 Unit SQ DAILYWBKFT Levothyroxine Sodium 25 Mcg Tablet 25 Mcg PO DAILY06 Levemir (Insulin Detemir) 100 Unit/1 Ml Vial 5 SQ DAILY Levemir (Insulin Detemir) 100 Unit/1 Ml Vial 30 Unit SQ HS Donepezil Hcl 5 Mg Tablet 5 Mg PO DAILY Divalproex Sodium Er (Divalproex Sodium) 500 Mg Tab.er.24h 1,000 Mg PO QHS Lisinopril 40 Mg Tablet 40 Mg PO DAILY I have reviewed the current psychotropics carefully including drug interactions. Risk benefit ratio favors no change other than as noted in my dictated progress note. Diagnosis: Problems: (1) Anxiety disorder (2) Dementia, vascular, with delusions (3) Dementia, vascular, with depression (4) Dementia in Alzheimer's disease with delusions (5) Dementia in Alzheimer's disease with depression (6) Impulse control disorder NEGIN CRUZ MD December 18, 2018 21:52
[2018-12-19] MEDS: LEVOTHYROXINE 25 MCG TABLET. PO SCH (04:53)
[2018-12-19 05:44] VITALS: BP 109/67
[2018-12-19] MEDS: INSULIN LISPRO 300 UNITS/3 ML INSULN.PEN. SQ SCH ×3 (08:00→17:28)
[2018-12-19] MEDS: buPROPion XL 150 MG TAB.ER.24H PO SCH (08:10)
[2018-12-19] MEDS: SERTRALINE 50 MG TABLET. PO SCH (08:10)
[2018-12-19] MEDS: amLODIPine BESYLATE 5 MG TABLET PO SCH (08:10)
[2018-12-19] MEDS: LISINOPRIL 20 MG TABLET PO SCH (08:11)
[2018-12-19] MEDS: DONEPEZIL HCL 5 MG TABLET. PO SCH (08:11)
[2018-12-19] MEDS: medroxyPROGESTERone 5 MG TABLET PO SCH (08:11)
[2018-12-19] MEDS: INSULIN GLARGINE 300 UNITS/3 ML INSULN.PEN. SQ SCH ×2 (08:12→19:54)
[2018-12-19 15:30] VITALS: BP 127/79
[2018-12-19] MEDS: RIVAROXABAN 15 MG TABLET. PO SCH (19:52)
[2018-12-19] MEDS: ATORVASTATIN CALCIUM 20 MG TABLET PO SCH (19:52)
[2018-12-19] MEDS: DIVALPROEX ER 500 MG TAB.ER.24H PO SCH (19:52)
[2018-12-19] MEDS: traZODone 100 MG TABLET. PO SCH (19:52)
[2018-12-19] MEDS: MIRTAZAPINE 7.5 MG TABLET. PO SCH (19:52)
--- NOTE | 2018-12-19 22:22 | PDOC ---
Exam Note: Dwain Note: Please also refer to the separate dictated note~for this date of service dictated separately.~Patient seen individually. Discussed the patient with Nursing staff reviewed the chart.~Reviewed interim history and current functioning. Reviewed vital signs,~Labs/ Radiology~and current medications noted below. Continue current treatment with the changes noted in the dictated addendum note Assessment: Vital Signs: Vital Signs Date Time Temp Pulse Resp B/P (MAP) Pulse Ox O2 Delivery O2 Flow Rate FiO2 12/19/18 15:30 98.3 73 16 127/79 (95) 97 12/14/18 15:36 Room Air 12/14/18 05:39 0.0 I&O Intake and Output 12/19/18 06:59 Intake Total 840 ml Balance 840 ml Intake Oral 840 ml # Voids 1 # Bowel Movements 1 Labs: Laboratory Tests Test 12/19/18 07:24 12/19/18 11:58 12/19/18 17:15 12/19/18 19:11 Glucose (Fingerstick) 81 mg/dL (70-99) 221 mg/dL (70-99) H 201 mg/dL (70-99) H 251 mg/dL (70-99) H Current Medications: Meds: Current Medications Rivaroxaban (Xarelto) 20 mg HS PO Last administered on 11/25/18at 22:08; Start 11/25/18 at 21:00; Stop 11/26/18 at 14:13; Status DC Insulin Glargine (Lantus) 45 units QHS SQ Last administered on 12/04/18at 20:56; Start 11/25/18 at 21:00; Stop 12/05/18 at 14:08; Status DC Atorvastatin Calcium (Lipitor) 20 mg QHS PO Last administered on 12/19/18at 19:52; Start 11/26/18 at 21:00 Citalopram Hydrobromide (CeleXA) 10 mg DAILYBFRSUP PO Last administered on 11/26/18at 16:02; Start 11/26/18 at 17:00; Stop 11/27/18 at 11:53; Status DC Rivaroxaban (Xarelto) 20 mg HS PO ; Start 11/26/18 at 21:00; Stop 11/26/18 at 21:00; Status DC Acetaminophen (Tylenol) 650 mg PRN Q6HRS PRN PO PAIN / TEMP; Start 11/25/18 at 22:00 Amlodipine Besylate (Norvasc) 5 mg DAILY PO Last administered on 12/19/18at 08:10; Start 11/26/18 at 09:00 Divalproex Sodium (Depakote Er) 500 mg DAILY PO Last administered on 11/27/18at 09:00; Start 11/26/18 at 09:00; Stop 11/27/18 at 11:53; Status DC Donepezil HCl (Aricept) 5 mg DAILY PO Last administered on 12/19/18 08:11; Start 11/26/18 at 09:00 Insulin Human Lispro (HumaLOG) 10 units DAILYBFRLUN SQ Last administered on 12/19/18at 12:38; Start 11/26/18 at 11:30 Insulin Human Lispro (HumaLOG) 10 units DAILYWBKFT SQ Last administered on 12/15/18at 07:39; Start 11/26/18 at 08:00 Insulin Human Lispro (HumaLOG) 17 units DAILYWSUP SQ Last administered on 12/04/18at 17:37; Start 11/26/18 at 17:00; Stop 12/05/18 at 14:09; Status DC Insulin Glargine (Lantus) 5 units DAILY SQ Last administered on 12/19/18at 08:12; Start 11/26/18 at 09:00 Non-Formulary Medication (Insulin Detemir (Levemir)) 45 unit HS SQ ; Start 11/26/18 at 21:00; Stop 11/26/18 at 21:00; Status DC Levothyroxine Sodium (Synthroid) 25 mcg DAILY06 PO Last administered on 12/19/18at 04:53; Start 11/26/18 at 06:00 Lisinopril (Prinivil) 40 mg DAILY PO Last administered on 12/19/18 08:11; Start 11/26/18 at 09:00 Trazodone HCl (Desyrel) 50 mg QHS PO Last administered on 12/03/18 19:30; Start 11/25/18 at 22:00; Stop 12/04/18 at 18:39; Status DC Acetaminophen (Tylenol) 650 mg PRN Q6HRS PRN PO PAIN / TEMP; Start 11/25/18 at 23:30; Status UNV Multi-Ingredient Ointment (Analgesic [place]) 1 huseyin PRN QID PRN TP MUSCLE PAIN; Start 11/25/18 at 23:30 Al Hydroxide/Mg Hydroxide (Mylanta Plus Xs) 15 ml PRN AFTMEALHC PRN PO DYSPEPSIA; Start 11/25/18 at 23:30 Magnesium Hydroxide (Milk Of Magnesia) 2,400 mg PRN QHS PRN PO CONSTIPATION; Start 11/25/18 at 23:30 Rivaroxaban (Xarelto) 15 mg QHS PO Last administered on 12/19/18 19:52; Start 11/26/18 at 21:00 Divalproex Sodium (Depakote Er) 750 mg HS PO Last administered on 11/30/18 19:24; Start 11/28/18 at 21:00; Stop 11/30/18 at 20:48; Status DC Sertraline HCl (Zoloft) 50 mg DAILY PO Last administered on 12/17/18at 07:46; Start 11/28/18 at 09:00; Stop 12/17/18 at 17:14; Status DC Divalproex Sodium (Depakote Er) 250 mg 1X ONCE PO Last administered on 11/27/18at 12:08; Start 11/27/18 at 11:45; Stop 11/27/18 at 11:58; Status DC Medroxyprogesterone Acetate (Provera) 2.5 mg DAILY PO Last administered on 12/01/18 08:03; Start 11/29/18 at 09:00; Stop 12/01/18 at 09:01; Status DC Medroxyprogesterone Acetate (Provera) 5 mg DAILY PO Last administered on 12/19/18at 08:11; Start 12/02/18 at 09:00 Divalproex Sodium (Depakote Er) 1,000 mg QHS PO Last administered on 12/19/18 19:52; Start 12/01/18 at 21:00 Trazodone HCl (Desyrel) 50 mg PRN QHS PRN PO INSOMNIA Last administered on 12/03/18 19:32; Start 12/02/18 at 17:45; Stop 12/04/18 at 18:39; Status DC Mirtazapine (Remeron) 7.5 mg QHS PO Last administered on 12/19/18 19:52; Start 12/03/18 at 21:00 Trazodone HCl (Desyrel) 100 mg QHS PO Last administered on 12/19/18at 19:52; Start 12/04/18 at 21:00 Trazodone HCl (Desyrel) 100 mg PRN QHS PRN PO INSOMNIA; Start 12/04/18 at 19:00 Insulin Glargine (Lantus) 30 units QHS SQ Last administered on 12/19/18at 19:54; Start 12/05/18 at 21:00 Insulin Human Lispro (HumaLOG) 10 units DAILYWSUP SQ Last administered on 12/19/18at 17:28; Start 12/05/18 at 17:00 Albuterol/ Ipratropium (Duoneb) 3 ml PRN QID PRN NEB COUGH Last administered on 12/11/18 11:14; Start 12/10/18 at 13:30 Sertraline HCl (Zoloft) 75 mg DAILY PO Last administered on 12/19/18at 08:10; Start 12/18/18 at 09:00 Bupropion HCl (Wellbutrin Xl) 150 mg DAILY PO Last administered on 12/19/18at 08:10; Start 12/18/18 at 09:00; Stop 12/19/18 at 11:21; Status DC Bupropion HCl (Wellbutrin Xl) 300 mg DAILY PO ; Start 12/20/18 at 09:00 Active Scripts Active Reported Xarelto (Rivaroxaban) 15 Mg Tablet 15 Mg PO QHS Trazodone Hcl 100 Mg Tablet 100 Mg PO PRN QHS PRN Provera (Medroxyprogesterone Acetate) 5 Mg Tablet 5 Mg PO DAILY Zoloft (Sertraline Hcl) 50 Mg Tablet 50 Mg PO DAILY Mirtazapine 15 Mg Tablet 7.5 Mg PO QHS Analgesic [place] (Methyl Salicylate/Menthol) 28 Gm Oint...g. 1 Huseyin TP PRN QID PRN Milk Of Magnesia (Magnesium Hydroxide) 400 Mg/5 Ml Oral.susp 2,400 Mg PO PRN QHS PRN Mag-Al Plus Xs Suspension (Mag Hydrox/Al Hydrox/Simeth) 30 Ml Oral.susp 15 Ml PO PRN AFTMEALHC PRN Duoneb 0.5-3(2.5) Mg/3 Ml (Albuterol/Ipratropium) 3 Ml Ampul.neb 3 Ml NEB PRN QID PRN Atorvastatin Calcium 20 Mg Tablet 20 Mg PO QHS Amlodipine Besylate 5 Mg Tablet 5 Mg PO DAILY Acetaminophen 160 Mg/5 Ml Solution 650 Mg PO PRN Q6HRS PRN Trazodone Hcl 50 Mg Tablet 100 Mg PO HS Novolog Flexpen (Insulin Aspart) 100 Unit/1 Ml Insuln.pen 10 Unit SQ DAILYWSUP Novolog Flexpen (Insulin Aspart) 100 Unit/1 Ml Insuln.pen 10 Unit SQ DAILYBFRLUN Novolog Flexpen (Insulin Aspart) 100 Unit/1 Ml Insuln.pen 10 Unit SQ DAILYWBKFT Levothyroxine Sodium 25 Mcg Tablet 25 Mcg PO DAILY06 Levemir (Insulin Detemir) 100 Unit/1 Ml Vial 5 SQ DAILY Levemir (Insulin Detemir) 100 Unit/1 Ml Vial 30 Unit SQ HS Donepezil Hcl 5 Mg Tablet 5 Mg PO DAILY Divalproex Sodium Er (Divalproex Sodium) 500 Mg Tab.er.24h 1,000 Mg PO QHS Lisinopril 40 Mg Tablet 40 Mg PO DAILY I have reviewed the current psychotropics carefully including drug interactions. Risk benefit ratio favors no change other than as noted in my dictated progress note. Diagnosis: Problems: (1) Anxiety disorder (2) Dementia, vascular, with delusions (3) Dementia, vascular, with depression (4) Dementia in Alzheimer's disease with delusions (5) Dementia in Alzheimer's disease with depression (6) Impulse control disorder NEGIN CRUZ MD December 19, 2018 22:22
[2018-12-20] MEDS: LEVOTHYROXINE 25 MCG TABLET. PO SCH (04:59)
[2018-12-20 05:42] VITALS: BP 162/77
[2018-12-20] MEDS: medroxyPROGESTERone 5 MG TABLET PO SCH (08:08)
[2018-12-20] MEDS: DONEPEZIL HCL 5 MG TABLET. PO SCH (08:09)
[2018-12-20] MEDS: SERTRALINE 50 MG TABLET. PO SCH (08:09)
[2018-12-20] MEDS: amLODIPine BESYLATE 5 MG TABLET PO SCH (08:09)
[2018-12-20] MEDS: LISINOPRIL 20 MG TABLET PO SCH (08:09)
[2018-12-20] MEDS: INSULIN LISPRO 300 UNITS/3 ML INSULN.PEN. SQ SCH ×3 (08:11→17:00)
[2018-12-20] MEDS: buPROPion XL 300 MG TAB.ER.24H. PO SCH (08:12)
[2018-12-20] MEDS: INSULIN GLARGINE 300 UNITS/3 ML INSULN.PEN. SQ SCH ×2 (08:13→20:02)
[2018-12-20 15:48] VITALS: BP 126/78
--- NOTE | 2018-12-20 16:29 | PN ---
DATE: 12/18/2018 PSYCHIATRIC PROGRESS NOTE This is a late entry 12/18/2018, covers elements not covered in my initial note. SUBJECTIVE: I met with the patient in his room. The patient slept 6-3/4 hours previous night. He remains somewhat withdrawn, but less agitated. No sexually inappropriate behaviors noted. REVIEW OF SYSTEMS: Ambulation impaired, in wheelchair, hard of hearing. No CV, , pulmonary, eye system symptoms on review. MENTAL STATUS EXAM: Oriented to himself. Insight, judgment, recent and remote memory, attention, concentration, fund of knowledge poor, consistent with his diagnoses mentioned in my initial note. PLAN: No change from initial note. MAN Dulce CRUZ MD DR: JADA/archie JOB#: [id number] / [id number]
[2018-12-20] MEDS: RIVAROXABAN 15 MG TABLET. PO SCH (20:00)
[2018-12-20] MEDS: traZODone 100 MG TABLET. PO SCH (20:00)
[2018-12-20] MEDS: MIRTAZAPINE 7.5 MG TABLET. PO SCH (20:00)
[2018-12-20] MEDS: ATORVASTATIN CALCIUM 20 MG TABLET PO SCH (20:00)
[2018-12-20] MEDS: DIVALPROEX ER 500 MG TAB.ER.24H PO SCH (20:01)
--- NOTE | 2018-12-20 20:01 | PN ---
DATE: 12/19/2018 PSYCHIATRIC PROGRESS NOTE This late entry 12/19/2018 covers elements not covered in my initial note. SUBJECTIVE: I met with the patient in the evening of 12/19/2018 and staffed at a treatment team meeting in the morning of 12/19/2018 with the entire team. I reviewed the patient's history at length progress, medications in detail. The patient slept 8 hours previous night. Appetite 100%, still withdrawn, isolated, spends much time in his room. 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 No CV, , pulmonary, eye system symptoms on review. Reliability poor. MENTAL STATUS EXAM: Oriented to himself. Insight, judgment, recent and remote memory, attention, concentration, fund of knowledge poor, consistent with his diagnosis mentioned in my initial note. PLAN: No change from initial note, but we will go ahead and increase the Wellbutrin-XL from 150 mg a day to 300 mg a day. Rest unchanged. MAN Dulce CRUZ MD DR: JADA/archie JOB#: [id number] / [id number]
--- NOTE | 2018-12-20 22:32 | PDOC ---
Exam Note: Dwain Note: Please also refer to the separate dictated note~for this date of service dictated separately.~Patient seen individually. Discussed the patient with Nursing staff reviewed the chart.~Reviewed interim history and current functioning. Reviewed vital signs,~Labs/ Radiology~and current medications noted below. Continue current treatment with the changes noted in the dictated addendum note Assessment: Vital Signs: Vital Signs Date Time Temp Pulse Resp B/P (MAP) Pulse Ox O2 Delivery O2 Flow Rate FiO2 12/20/18 15:48 97.0 72 18 126/78 (94) 98 12/14/18 15:36 Room Air I&O Intake and Output 12/20/18 06:59 Intake Total 1200 ml Balance 1200 ml Intake Oral 1200 ml Labs: Laboratory Tests Test 12/20/18 07:15 12/20/18 11:55 12/20/18 16:38 12/20/18 19:21 Glucose (Fingerstick) 90 mg/dL (70-99) 150 mg/dL (70-99) H 139 mg/dL (70-99) H 266 mg/dL (70-99) H Current Medications: Meds: Current Medications Rivaroxaban (Xarelto) 20 mg HS PO Last administered on 11/25/18at 22:08; Start 11/25/18 at 21:00; Stop 11/26/18 at 14:13; Status DC Insulin Glargine (Lantus) 45 units QHS SQ Last administered on 12/04/18at 20:56; Start 11/25/18 at 21:00; Stop 12/05/18 at 14:08; Status DC Atorvastatin Calcium (Lipitor) 20 mg QHS PO Last administered on 12/20/18at 20:00; Start 11/26/18 at 21:00 Citalopram Hydrobromide (CeleXA) 10 mg DAILYBFRSUP PO Last administered on 11/26/18at 16:02; Start 11/26/18 at 17:00; Stop 11/27/18 at 11:53; Status DC Rivaroxaban (Xarelto) 20 mg HS PO ; Start 11/26/18 at 21:00; Stop 11/26/18 at 21:00; Status DC Acetaminophen (Tylenol) 650 mg PRN Q6HRS PRN PO PAIN / TEMP; Start 11/25/18 at 22:00 Amlodipine Besylate (Norvasc) 5 mg DAILY PO Last administered on 12/20/18 08:09; Start 11/26/18 at 09:00 Divalproex Sodium (Depakote Er) 500 mg DAILY PO Last administered on 11/27/18 09:00; Start 11/26/18 at 09:00; Stop 11/27/18 at 11:53; Status DC Donepezil HCl (Aricept) 5 mg DAILY PO Last administered on 12/20/18 08:09; Start 11/26/18 at 09:00 Insulin Human Lispro (HumaLOG) 10 units DAILYBFRLUN SQ Last administered on 12/20/18 11:30; Start 11/26/18 at 11:30 Insulin Human Lispro (HumaLOG) 10 units DAILYWBKFT SQ Last administered on 12/20/18 08:11; Start 11/26/18 at 08:00 Insulin Human Lispro (HumaLOG) 17 units DAILYWSUP SQ Last administered on 12/04/18at 17:37; Start 11/26/18 at 17:00; Stop 12/05/18 at 14:09; Status DC Insulin Glargine (Lantus) 5 units DAILY SQ Last administered on 12/20/18 08:13; Start 11/26/18 at 09:00 Non-Formulary Medication (Insulin Detemir (Levemir)) 45 unit HS SQ ; Start 11/26/18 at 21:00; Stop 11/26/18 at 21:00; Status DC Levothyroxine Sodium (Synthroid) 25 mcg DAILY06 PO Last administered on 12/20/18 04:59; Start 11/26/18 at 06:00 Lisinopril (Prinivil) 40 mg DAILY PO Last administered on 12/20/18 08:09; Start 11/26/18 at 09:00 Trazodone HCl (Desyrel) 50 mg QHS PO Last administered on 12/03/18 19:30; Start 11/25/18 at 22:00; Stop 12/04/18 at 18:39; Status DC Acetaminophen (Tylenol) 650 mg PRN Q6HRS PRN PO PAIN / TEMP; Start 11/25/18 at 23:30; Status UNV Multi-Ingredient Ointment (Analgesic [place]) 1 huseyin PRN QID PRN TP MUSCLE PAIN; Start 11/25/18 at 23:30 Al Hydroxide/Mg Hydroxide (Mylanta Plus Xs) 15 ml PRN AFTMEALHC PRN PO DYSPEPSIA; Start 11/25/18 at 23:30 Magnesium Hydroxide (Milk Of Magnesia) 2,400 mg PRN QHS PRN PO CONSTIPATION; Start 11/25/18 at 23:30 Rivaroxaban (Xarelto) 15 mg QHS PO Last administered on 12/20/18at 20:00; Start 11/26/18 at 21:00 Divalproex Sodium (Depakote Er) 750 mg HS PO Last administered on 11/30/18 19:24; Start 11/28/18 at 21:00; Stop 11/30/18 at 20:48; Status DC Sertraline HCl (Zoloft) 50 mg DAILY PO Last administered on 12/17/18at 07:46; Start 11/28/18 at 09:00; Stop 12/17/18 at 17:14; Status DC Divalproex Sodium (Depakote Er) 250 mg 1X ONCE PO Last administered on 11/27/18 12:08; Start 11/27/18 at 11:45; Stop 11/27/18 at 11:58; Status DC Medroxyprogesterone Acetate (Provera) 2.5 mg DAILY PO Last administered on 12/01/18 08:03; Start 11/29/18 at 09:00; Stop 12/01/18 at 09:01; Status DC Medroxyprogesterone Acetate (Provera) 5 mg DAILY PO Last administered on 12/20/18 08:08; Start 12/02/18 at 09:00 Divalproex Sodium (Depakote Er) 1,000 mg QHS PO Last administered on 12/20/18 20:01; Start 12/01/18 at 21:00 Trazodone HCl (Desyrel) 50 mg PRN QHS PRN PO INSOMNIA Last administered on 12/03/18 19:32; Start 12/02/18 at 17:45; Stop 12/04/18 at 18:39; Status DC Mirtazapine (Remeron) 7.5 mg QHS PO Last administered on 12/20/18 20:00; St art 12/03/18 at 21:00 Trazodone HCl (Desyrel) 100 mg QHS PO Last administered on 12/20/18 20:00; Start 12/04/18 at 21:00 Trazodone HCl (Desyrel) 100 mg PRN QHS PRN PO INSOMNIA; Start 12/04/18 at 19:00 Insulin Glargine (Lantus) 30 units QHS SQ Last administered on 12/20/18 20:02; Start 12/05/18 at 21:00 Insulin Human Lispro (HumaLOG) 10 units DAILYWSUP SQ Last administered on 17:00; Start 12/05/18 at 17:00 Albuterol/ Ipratropium (Duoneb) 3 ml PRN QID PRN NEB COUGH Last administered on 12/11/18 11:14; Start 12/10/18 at 13:30 Sertraline HCl (Zoloft) 75 mg DAILY PO Last administered on 12/20/18 08:09; Start 12/18/18 at 09:00 Bupropion HCl (Wellbutrin Xl) 150 mg DAILY PO Last administered on 12/19/18 08:10; Start 12/18/18 at 09:00; Stop 12/19/18 at 11:21; Status DC Bupropion HCl (Wellbutrin Xl) 300 mg DAILY PO Last administered on 12/20/18 08:12; Start 12/20/18 at 09:00 Active Scripts Active Reported Xarelto (Rivaroxaban) 15 Mg Tablet 15 Mg PO QHS Trazodone Hcl 100 Mg Tablet 100 Mg PO PRN QHS PRN Provera (Medroxyprogesterone Acetate) 5 Mg Tablet 5 Mg PO DAILY Zoloft (Sertraline Hcl) 50 Mg Tablet 50 Mg PO DAILY Mirtazapine 15 Mg Tablet 7.5 Mg PO QHS Analgesic [place] (Methyl Salicylate/Menthol) 28 Gm Oint...g. 1 Huseyin TP PRN QID PRN Milk Of Magnesia (Magnesium Hydroxide) 400 Mg/5 Ml Oral.susp 2,400 Mg PO PRN QHS PRN Mag-Al Plus Xs Suspension (Mag Hydrox/Al Hydrox/Simeth) 30 Ml Oral.susp 15 Ml PO PRN AFTMEALHC PRN Duoneb 0.5-3(2.5) Mg/3 Ml (Albuterol/Ipratropium) 3 Ml Ampul.neb 3 Ml NEB PRN QID PRN Atorvastatin Calcium 20 Mg Tablet 20 Mg PO QHS Amlodipine Besylate 5 Mg Tablet 5 Mg PO DAILY Acetaminophen 160 Mg/5 Ml Solution 650 Mg PO PRN Q6HRS PRN Trazodone Hcl 50 Mg Tablet 100 Mg PO HS Novolog Flexpen (Insulin Aspart) 100 Unit/1 Ml Insuln.pen 10 Unit SQ DAILYWSUP Novolog Flexpen (Insulin Aspart) 100 Unit/1 Ml Insuln.pen 10 Unit SQ DAILYBFRLUN Novolog Flexpen (Insulin Aspart) 100 Unit/1 Ml Insuln.pen 10 Unit SQ DAILYWBKFT Levothyroxine Sodium 25 Mcg Tablet 25 Mcg PO DAILY06 Levemir (Insulin Detemir) 100 Unit/1 Ml Vial 5 SQ DAILY Levemir (Insulin Detemir) 100 Unit/1 Ml Vial 30 Unit SQ HS Donepezil Hcl 5 Mg Tablet 5 Mg PO DAILY Divalproex Sodium Er (Divalproex Sodium) 500 Mg Tab.er.24h 1,000 Mg PO QHS Lisinopril 40 Mg Tablet 40 Mg PO DAILY I have reviewed the current psychotropics carefully including drug interactions. Risk benefit ratio favors no change other than as noted in my dictated progress note. Diagnosis: Problems: (1) Anxiety disorder (2) Dementia, vascular, with delusions (3) Dementia, vascular, with depression (4) Dementia in Alzheimer's disease with delusions (5) Dementia in Alzheimer's disease with depression (6) Impulse control disorder NEGIN CRUZ MD December 20, 2018 22:32
[2018-12-21] MEDS: LEVOTHYROXINE 25 MCG TABLET. PO SCH (04:53)
[2018-12-21 06:10] VITALS: BP 135/73
[2018-12-21] MEDS: medroxyPROGESTERone 5 MG TABLET PO SCH (07:57)
[2018-12-21] MEDS: SERTRALINE 50 MG TABLET. PO SCH (07:58)
[2018-12-21] MEDS: DONEPEZIL HCL 5 MG TABLET. PO SCH (07:58)
[2018-12-21] MEDS: amLODIPine BESYLATE 5 MG TABLET PO SCH (07:58)
[2018-12-21] MEDS: LISINOPRIL 20 MG TABLET PO SCH (07:58)
[2018-12-21] MEDS: buPROPion XL 300 MG TAB.ER.24H. PO SCH (07:59)
[2018-12-21] MEDS: INSULIN LISPRO 300 UNITS/3 ML INSULN.PEN. SQ SCH ×3 (08:00→17:00)
[2018-12-21] MEDS: INSULIN GLARGINE 300 UNITS/3 ML INSULN.PEN. SQ SCH ×2 (08:01→19:53)
[2018-12-21 15:31] VITALS: BP 125/82
[2018-12-21] MEDS: traZODone 100 MG TABLET. PO SCH (19:26)
[2018-12-21] MEDS: MIRTAZAPINE 7.5 MG TABLET. PO SCH (19:26)
[2018-12-21] MEDS: DIVALPROEX ER 500 MG TAB.ER.24H PO SCH (19:26)
[2018-12-21] MEDS: RIVAROXABAN 15 MG TABLET. PO SCH (19:26)
[2018-12-21] MEDS: ATORVASTATIN CALCIUM 20 MG TABLET PO SCH (19:26)
--- NOTE | 2018-12-21 22:26 | PDOC ---
Exam Note: Dwain Note: Please also refer to the separate dictated note~for this date of service dictated separately.~Patient seen individually. Discussed the patient with Nursing staff reviewed the chart.~Reviewed interim history and current functioning. Reviewed vital signs,~Labs/ Radiology~and current medications noted below. Continue current treatment with the changes noted in the dictated addendum note Assessment: Vital Signs: Vital Signs Date Time Temp Pulse Resp B/P (MAP) Pulse Ox O2 Delivery O2 Flow Rate FiO2 12/21/18 15:31 98.1 78 14 125/82 (96) 96 12/21/18 06:10 Room Air I&O Intake and Output 12/21/18 06:59 Intake Total 840 ml Balance 840 ml Intake Oral 840 ml Labs: Laboratory Tests Test 12/21/18 07:27 12/21/18 11:50 12/21/18 16:37 12/21/18 19:29 Glucose (Fingerstick) 86 mg/dL (70-99) 265 mg/dL (70-99) H 235 mg/dL (70-99) H 163 mg/dL (70-99) H Current Medications: Meds: Current Medications Rivaroxaban (Xarelto) 20 mg HS PO Last administered on 11/25/18at 22:08; Start 11/25/18 at 21:00; Stop 11/26/18 at 14:13; Status DC Insulin Glargine (Lantus) 45 units QHS SQ Last administered on 12/04/18at 20:56; Start 11/25/18 at 21:00; Stop 12/05/18 at 14:08; Status DC Atorvastatin Calcium (Lipitor) 20 mg QHS PO Last administered on 12/21/18at 19:26; Start 11/26/18 at 21:00 Citalopram Hydrobromide (CeleXA) 10 mg DAILYBFRSUP PO Last administered on 11/26/18at 16:02; Start 11/26/18 at 17:00; Stop 11/27/18 at 11:53; Status DC Rivaroxaban (Xarelto) 20 mg HS PO ; Start 11/26/18 at 21:00; Stop 11/26/18 at 21:00; Status DC Acetaminophen (Tylenol) 650 mg PRN Q6HRS PRN PO PAIN / TEMP; Start 11/25/18 at 22:00 Amlodipine Besylate (Norvasc) 5 mg DAILY PO Last administered on 12/21/18 07:58; Start 11/26/18 at 09:00 Divalproex Sodium (Depakote Er) 500 mg DAILY PO Last administered on 11/27/18 09:00; Start 11/26/18 at 09:00; Stop 11/27/18 at 11:53; Status DC Donepezil HCl (Aricept) 5 mg DAILY PO Last administered on 12/21/18 07:58; Start 11/26/18 at 09:00 Insulin Human Lispro (HumaLOG) 10 units DAILYBFRLUN SQ Last administered on 12/21/18 11:30; Start 11/26/18 at 11:30 Insulin Human Lispro (HumaLOG) 10 units DAILYWBKFT SQ Last administered on 12/21/18 08:00; Start 11/26/18 at 08:00 Insulin Human Lispro (HumaLOG) 17 units DAILYWSUP SQ Last administered on 12/04/18at 17:37; Start 11/26/18 at 17:00; Stop 12/05/18 at 14:09; Status DC Insulin Glargine (Lantus) 5 units DAILY SQ Last administered on 12/21/18 08:01; Start 11/26/18 at 09:00 Non-Formulary Medication (Insulin Detemir (Levemir)) 45 unit HS SQ ; Start 11/26/18 at 21:00; Stop 11/26/18 at 21:00; Status DC Levothyroxine Sodium (Synthroid) 25 mcg DAILY06 PO Last administered on 12/21/18 04:53; Start 11/26/18 at 06:00 Lisinopril (Prinivil) 40 mg DAILY PO Last administered on 12/21/18 07:58; Start 11/26/18 at 09:00 Trazodone HCl (Desyrel) 50 mg QHS PO Last administered on 12/03/18 19:30; Start 11/25/18 at 22:00; Stop 12/04/18 at 18:39; Status DC Acetaminophen (Tylenol) 650 mg PRN Q6HRS PRN PO PAIN / TEMP; Start 11/25/18 at 23:30; Status UNV Multi-Ingredient Ointment (Analgesic [place]) 1 huseyin PRN QID PRN TP MUSCLE PAIN; Start 11/25/18 at 23:30 Al Hydroxide/Mg Hydroxide (Mylanta Plus Xs) 15 ml PRN AFTMEALHC PRN PO DYSPEPSIA; Start 11/25/18 at 23:30 Magnesium Hydroxide (Milk Of Magnesia) 2,400 mg PRN QHS PRN PO CONSTIPATION; Start 11/25/18 at 23:30 Rivaroxaban (Xarelto) 15 mg QHS PO Last administered on 12/21/18 19:26; Start 11/26/18 at 21:00 Divalproex Sodium (Depakote Er) 750 mg HS PO Last administered on 11/30/18 19:24; Start 11/28/18 at 21:00; Stop 11/30/18 at 20:48; Status DC Sertraline HCl (Zoloft) 50 mg DAILY PO Last administered on 12/17/18at 07:46; Start 11/28/18 at 09:00; Stop 12/17/18 at 17:14; Status DC Divalproex Sodium (Depakote Er) 250 mg 1X ONCE PO Last administered on 11/27/18at 12:08; Start 11/27/18 at 11:45; Stop 11/27/18 at 11:58; Status DC Medroxyprogesterone Acetate (Provera) 2.5 mg DAILY PO Last administered on 12/01/18 08:03; Start 11/29/18 at 09:00; Stop 12/01/18 at 09:01; Status DC Medroxyprogesterone Acetate (Provera) 5 mg DAILY PO Last administered on 12/21/18at 07:57; Start 12/02/18 at 09:00 Divalproex Sodium (Depakote Er) 1,000 mg QHS PO Last administered on 12/21/18 19:26; Start 12/01/18 at 21:00 Trazodone HCl (Desyrel) 50 mg PRN QHS PRN PO INSOMNIA Last administered on 12/03/18 19:32; Start 12/02/18 at 17:45; Stop 12/04/18 at 18:39; Status DC Mirtazapine (Remeron) 7.5 mg QHS PO Last administered on 12/21/18 19:26; Start 12/03/18 at 21:00 Trazodone HCl (Desyrel) 100 mg QHS PO Last administered on 12/21/18 19:26; Start 12/04/18 at 21:00 Trazodone HCl (Desyrel) 100 mg PRN QHS PRN PO INSOMNIA; Start 12/04/18 at 19:00 Insulin Glargine (Lantus) 30 units QHS SQ Last administered on 12/21/18 19:53; Start 12/05/18 at 21:00 Insulin Human Lispro (HumaLOG) 10 units DAILYWSUP SQ Last administered on 12/21/18 17:00; Start 12/05/18 at 17:00 Albuterol/ Ipratropium (Duoneb) 3 ml PRN QID PRN NEB COUGH Last administered on 12/11/18 11:14; Start 12/10/18 at 13:30 Sertraline HCl (Zoloft) 75 mg DAILY PO Last administered on 12/21/18 07:58; Start 12/18/18 at 09:00 Bupropion HCl (Wellbutrin Xl) 150 mg DAILY PO Last administered on 12/19/18 08:10; Start 12/18/18 at 09:00; Stop 12/19/18 at 11:21; Status DC Bupropion HCl (Wellbutrin Xl) 300 mg DAILY PO Last administered on 12/21/18 07:59; Start 12/20/18 at 09:00 Active Scripts Active Reported Xarelto (Rivaroxaban) 15 Mg Tablet 15 Mg PO QHS Trazodone Hcl 100 Mg Tablet 100 Mg PO PRN QHS PRN Provera (Medroxyprogesterone Acetate) 5 Mg Tablet 5 Mg PO DAILY Zoloft (Sertraline Hcl) 50 Mg Tablet 50 Mg PO DAILY Mirtazapine 15 Mg Tablet 7.5 Mg PO QHS Analgesic [place] (Methyl Salicylate/Menthol) 28 Gm Oint...g. 1 Huseyin TP PRN QID PRN Milk Of Magnesia (Magnesium Hydroxide) 400 Mg/5 Ml Oral.susp 2,400 Mg PO PRN QHS PRN Mag-Al Plus Xs Suspension (Mag Hydrox/Al Hydrox/Simeth) 30 Ml Oral.susp 15 Ml PO PRN AFTMEALHC PRN Duoneb 0.5-3(2.5) Mg/3 Ml (Albuterol/Ipratropium) 3 Ml Ampul.neb 3 Ml NEB PRN QID PRN Atorvastatin Calcium 20 Mg Tablet 20 Mg PO QHS Amlodipine Besylate 5 Mg Tablet 5 Mg PO DAILY Acetaminophen 160 Mg/5 Ml Solution 650 Mg PO PRN Q6HRS PRN Trazodone Hcl 50 Mg Tablet 100 Mg PO HS Novolog Flexpen (Insulin Aspart) 100 Unit/1 Ml Insuln.pen 10 Unit SQ DAILYWSUP Novolog Flexpen (Insulin Aspart) 100 Unit/1 Ml Insuln.pen 10 Unit SQ DAILYBFRLUN Novolog Flexpen (Insulin Aspart) 100 Unit/1 Ml Insuln.pen 10 Unit SQ DAILYWBKFT Levothyroxine Sodium 25 Mcg Tablet 25 Mcg PO DAILY06 Levemir (Insulin Detemir) 100 Unit/1 Ml Vial 5 SQ DAILY Levemir (Insulin Detemir) 100 Unit/1 Ml Vial 30 Unit SQ HS Donepezil Hcl 5 Mg Tablet 5 Mg PO DAILY Divalproex Sodium Er (Divalproex Sodium) 500 Mg Tab.er.24h 1,000 Mg PO QHS Lisinopril 40 Mg Tablet 40 Mg PO DAILY I have reviewed the current psychotropics carefully including drug interactions. Risk benefit ratio favors no change other than as noted in my dictated progress note. Diagnosis: Problems: (1) Anxiety disorder (2) Dementia, vascular, with delusions (3) Dementia, vascular, with depression (4) Dementia in Alzheimer's disease with delusions (5) Dementia in Alzheimer's disease with depression (6) Impulse control disorder NEGIN CRUZ MD December 21, 2018 22:26
[2018-12-22] MEDS: LEVOTHYROXINE 25 MCG TABLET. PO SCH (05:07)
[2018-12-22 06:46] VITALS: BP 144/83
[2018-12-22] MEDS: LISINOPRIL 20 MG TABLET PO SCH (07:47)
[2018-12-22] MEDS: DONEPEZIL HCL 5 MG TABLET. PO SCH (07:48)
[2018-12-22] MEDS: INSULIN LISPRO 300 UNITS/3 ML INSULN.PEN. SQ SCH ×3 (07:48→17:00)
[2018-12-22] MEDS: medroxyPROGESTERone 5 MG TABLET PO SCH (07:48)
[2018-12-22] MEDS: SERTRALINE 50 MG TABLET. PO SCH (07:48)
[2018-12-22] MEDS: buPROPion XL 300 MG TAB.ER.24H. PO SCH (07:48)
[2018-12-22] MEDS: amLODIPine BESYLATE 5 MG TABLET PO SCH (07:48)
[2018-12-22] MEDS: INSULIN GLARGINE 300 UNITS/3 ML INSULN.PEN. SQ SCH ×2 (07:50→20:25)
[2018-12-22 15:48] VITALS: BP 144/76
--- NOTE | 2018-12-22 19:22 | PN ---
DATE: 12/20/2018 PSYCHIATRIC PROGRESS NOTE This late entry 12/20/2018 covers elements not covered in my initial note. SUBJECTIVE: I met with the patient in the evening of 12/20/2018. The patient slept 7-1/2 hours previous night. He has been isolative, but coming out more for groups. REVIEW OF SYSTEMS: Ambulation impaired, in a wheelchair with below knee amputation, hard of hearing, but no CV, , pulmonary, eye system symptoms on review. Reliability poor. MENTAL STATUS EXAM: Oriented to himself. Insight, judgment, recent and remote memory, attention, concentration, fund of knowledge poor, consistent with his diagnosis mentioned in my initial note. PLAN: No change from initial note and we have increased the Wellbutrin. Maintain rest unchanged. MAN Dulce CRUZ MD DR: JADA/archie JOB#: [id number] / [id number]
[2018-12-22] MEDS: ATORVASTATIN CALCIUM 20 MG TABLET PO SCH (19:39)
[2018-12-22] MEDS: RIVAROXABAN 15 MG TABLET. PO SCH (19:39)
[2018-12-22] MEDS: DIVALPROEX ER 500 MG TAB.ER.24H PO SCH (19:39)
[2018-12-22] MEDS: traZODone 100 MG TABLET. PO SCH (19:39)
[2018-12-22] MEDS: MIRTAZAPINE 7.5 MG TABLET. PO SCH (19:39)
--- NOTE | 2018-12-22 22:20 | PDOC ---
Exam Note: Dwain Note: Please also refer to the separate dictated note~for this date of service dictated separately.~Patient seen individually. Discussed the patient with Nursing staff reviewed the chart.~Reviewed interim history and current functioning. Reviewed vital signs,~Labs/ Radiology~and current medications noted below. Continue current treatment with the changes noted in the dictated addendum note Assessment: Vital Signs: Vital Signs Date Time Temp Pulse Resp B/P (MAP) Pulse Ox O2 Delivery O2 Flow Rate FiO2 12/22/18 15:48 98.0 60 20 144/76 (98) 98 12/21/18 06:10 Room Air I&O Intake and Output 12/22/18 07:00 Intake Total 1080 ml Balance 1080 ml Intake Oral 1080 ml Labs: Laboratory Tests Test 12/22/18 07:19 12/22/18 11:46 12/22/18 16:52 12/22/18 20:01 Glucose (Fingerstick) 72 mg/dL (70-99) 216 mg/dL (70-99) H 189 mg/dL (70-99) H 203 mg/dL (70-99) H Current Medications: Meds: Current Medications Rivaroxaban (Xarelto) 20 mg HS PO Last administered on 11/25/18at 22:08; Start 11/25/18 at 21:00; Stop 11/26/18 at 14:13; Status DC Insulin Glargine (Lantus) 45 units QHS SQ Last administered on 12/04/18at 20:56; Start 11/25/18 at 21:00; Stop 12/05/18 at 14:08; Status DC Atorvastatin Calcium (Lipitor) 20 mg QHS PO Last administered on 12/22/18at 19:39; Start 11/26/18 at 21:00 Citalopram Hydrobromide (CeleXA) 10 mg DAILYBFRSUP PO Last administered on 11/26/18at 16:02; Start 11/26/18 at 17:00; Stop 11/27/18 at 11:53; Status DC Rivaroxaban (Xarelto) 20 mg HS PO ; Start 11/26/18 at 21:00; Stop 11/26/18 at 21:00; Status DC Acetaminophen (Tylenol) 650 mg PRN Q6HRS PRN PO PAIN / TEMP; Start 11/25/18 at 22:00 Amlodipine Besylate (Norvasc) 5 mg DAILY PO Last administered on 12/22/18at 07:48; Start 11/26/18 at 09:00 Divalproex Sodium (Depakote Er) 500 mg DAILY PO Last administered on 11/27/18at 09:00; Start 11/26/18 at 09:00; Stop 11/27/18 at 11:53; Status DC Donepezil HCl (Aricept) 5 mg DAILY PO Last administered on 12/22/18at 07:48; Start 11/26/18 at 09:00 Insulin Human Lispro (HumaLOG) 10 units DAILYBFRLUN SQ Last administered on 12/22/18at 11:30; Start 11/26/18 at 11:30 Insulin Human Lispro (HumaLOG) 10 units DAILYWBKFT SQ Last administered on 12/21/18 08:00; Start 11/26/18 at 08:00 Insulin Human Lispro (HumaLOG) 17 units DAILYWSUP SQ Last administered on 12/04/18at 17:37; Start 11/26/18 at 17:00; Stop 12/05/18 at 14:09; Status DC Insulin Glargine (Lantus) 5 units DAILY SQ Last administered on 12/22/18at 07:50; Start 11/26/18 at 09:00 Non-Formulary Medication (Insulin Detemir (Levemir)) 45 unit HS SQ ; Start 11/26/18 at 21:00; Stop 11/26/18 at 21:00; Status DC Levothyroxine Sodium (Synthroid) 25 mcg DAILY06 PO Last administered on 12/22/18at 05:07; Start 11/26/18 at 06:00 Lisinopril (Prinivil) 40 mg DAILY PO Last administered on 12/22/18at 07:47; Start 11/26/18 at 09:00 Trazodone HCl (Desyrel) 50 mg QHS PO Last administered on 12/03/18 19:30; Start 11/25/18 at 22:00; Stop 12/04/18 at 18:39; Status DC Acetaminophen (Tylenol) 650 mg PRN Q6HRS PRN PO PAIN / TEMP; Start 11/25/18 at 23:30; Status UNV Multi-Ingredient Ointment (Analgesic [place]) 1 huseyin PRN QID PRN TP MUSCLE PAIN; Start 11/25/18 at 23:30 Al Hydroxide/Mg Hydroxide (Mylanta Plus Xs) 15 ml PRN AFTMEALHC PRN PO DYSPEPSIA; Start 11/25/18 at 23:30 Magnesium Hydroxide (Milk Of Magnesia) 2,400 mg PRN QHS PRN PO CONSTIPATION; Start 11/25/18 at 23:30 Rivaroxaban (Xarelto) 15 mg QHS PO Last administered on 12/22/18at 19:39; Start 11/26/18 at 21:00 Divalproex Sodium (Depakote Er) 750 mg HS PO Last administered on 11/30/18 19:24; Start 11/28/18 at 21:00; Stop 11/30/18 at 20:48; Status DC Sertraline HCl (Zoloft) 50 mg DAILY PO Last administered on 12/17/18at 07:46; Start 11/28/18 at 09:00; Stop 12/17/18 at 17:14; Status DC Divalproex Sodium (Depakote Er) 250 mg 1X ONCE PO Last administered on 11/27/18at 12:08; Start 11/27/18 at 11:45; Stop 11/27/18 at 11:58; Status DC Medroxyprogesterone Acetate (Provera) 2.5 mg DAILY PO Last administered on 12/01/18 08:03; Start 11/29/18 at 09:00; Stop 12/01/18 at 09:01; Status DC Medroxyprogesterone Acetate (Provera) 5 mg DAILY PO Last administered on 12/22/18at 07:48; Start 12/02/18 at 09:00 Divalproex Sodium (Depakote Er) 1,000 mg QHS PO Last administered on 12/22/18 19:39; Start 12/01/18 at 21:00 Trazodone HCl (Desyrel) 50 mg PRN QHS PRN PO INSOMNIA Last administered on 12/03/18 19:32; Start 12/02/18 at 17:45; Stop 12/04/18 at 18:39; Status DC Mirtazapine (Remeron) 7.5 mg QHS PO Last administered on 12/22/18 19:39; St art 12/03/18 at 21:00 Trazodone HCl (Desyrel) 100 mg QHS PO Last administered on 12/22/18 19:39; Start 12/04/18 at 21:00 Trazodone HCl (Desyrel) 100 mg PRN QHS PRN PO INSOMNIA; Start 12/04/18 at 19:00 Insulin Glargine (Lantus) 30 units QHS SQ Last administered on 12/22/18 20:25; Start 12/05/18 at 21:00 Insulin Human Lispro (HumaLOG) 10 units DAILYWSUP SQ Last administered on 17:00; Start 12/05/18 at 17:00 Albuterol/ Ipratropium (Duoneb) 3 ml PRN QID PRN NEB COUGH Last administered on 12/11/18 11:14; Start 12/10/18 at 13:30 Sertraline HCl (Zoloft) 75 mg DAILY PO Last administered on 12/22/18at 07:48; Start 12/18/18 at 09:00 Bupropion HCl (Wellbutrin Xl) 150 mg DAILY PO Last administered on 12/19/18 08:10; Start 12/18/18 at 09:00; Stop 12/19/18 at 11:21; Status DC Bupropion HCl (Wellbutrin Xl) 300 mg DAILY PO Last administered on 12/22/18 07:48; Start 12/20/18 at 09:00 Active Scripts Active Reported Xarelto (Rivaroxaban) 15 Mg Tablet 15 Mg PO QHS Trazodone Hcl 100 Mg Tablet 100 Mg PO PRN QHS PRN Provera (Medroxyprogesterone Acetate) 5 Mg Tablet 5 Mg PO DAILY Zoloft (Sertraline Hcl) 50 Mg Tablet 50 Mg PO DAILY Mirtazapine 15 Mg Tablet 7.5 Mg PO QHS Analgesic [place] (Methyl Salicylate/Menthol) 28 Gm Oint...g. 1 Huseyin TP PRN QID PRN Milk Of Magnesia (Magnesium Hydroxide) 400 Mg/5 Ml Oral.susp 2,400 Mg PO PRN QHS PRN Mag-Al Plus Xs Suspension (Mag Hydrox/Al Hydrox/Simeth) 30 Ml Oral.susp 15 Ml PO PRN AFTMEALHC PRN Duoneb 0.5-3(2.5) Mg/3 Ml (Albuterol/Ipratropium) 3 Ml Ampul.neb 3 Ml NEB PRN QID PRN Atorvastatin Calcium 20 Mg Tablet 20 Mg PO QHS Amlodipine Besylate 5 Mg Tablet 5 Mg PO DAILY Acetaminophen 160 Mg/5 Ml Solution 650 Mg PO PRN Q6HRS PRN Trazodone Hcl 50 Mg Tablet 100 Mg PO HS Novolog Flexpen (Insulin Aspart) 100 Unit/1 Ml Insuln.pen 10 Unit SQ DAILYWSUP Novolog Flexpen (Insulin Aspart) 100 Unit/1 Ml Insuln.pen 10 Unit SQ DAILYBFRLUN Novolog Flexpen (Insulin Aspart) 100 Unit/1 Ml Insuln.pen 10 Unit SQ DAILYWBKFT Levothyroxine Sodium 25 Mcg Tablet 25 Mcg PO DAILY06 Levemir (Insulin Detemir) 100 Unit/1 Ml Vial 5 SQ DAILY Levemir (Insulin Detemir) 100 Unit/1 Ml Vial 30 Unit SQ HS Donepezil Hcl 5 Mg Tablet 5 Mg PO DAILY Divalproex Sodium Er (Divalproex Sodium) 500 Mg Tab.er.24h 1,000 Mg PO QHS Lisinopril 40 Mg Tablet 40 Mg PO DAILY I have reviewed the current psychotropics carefully including drug interactions. Risk benefit ratio favors no change other than as noted in my dictated progress note. 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
[2018-12-23] MEDS: LEVOTHYROXINE 25 MCG TABLET. PO SCH (03:08)
[2018-12-23 06:06] VITALS: BP 117/59
[2018-12-23] MEDS: INSULIN LISPRO 300 UNITS/3 ML INSULN.PEN. SQ SCH ×3 (08:00→17:04)
[2018-12-23] MEDS: medroxyPROGESTERone 5 MG TABLET PO SCH (08:36)
[2018-12-23] MEDS: DONEPEZIL HCL 5 MG TABLET. PO SCH (08:37)
[2018-12-23] MEDS: SERTRALINE 50 MG TABLET. PO SCH (08:38)
[2018-12-23] MEDS: buPROPion XL 300 MG TAB.ER.24H. PO SCH (08:38)
[2018-12-23] MEDS: INSULIN GLARGINE 300 UNITS/3 ML INSULN.PEN. SQ SCH ×2 (08:41→19:56)
[2018-12-23 08:58] VITALS: BP 126/76
[2018-12-23] MEDS: LISINOPRIL 20 MG TABLET PO SCH (09:00)
[2018-12-23] MEDS: amLODIPine BESYLATE 5 MG TABLET PO SCH (09:01)
--- NOTE | 2018-12-23 11:28 | PN ---
DATE: 12/22/2018 PSYCHIATRIC PROGRESS NOTE This note covers elements not covered in my initial note of 12/22/2018. SUBJECTIVE: The patient was seen individually in evening of 12/22/2018. The patient slept 8 hours previous night. He was irritable yesterday, done better during the day today, frequently wants to get back to bed, doing a little better since we have increased the Wellbutrin to 300 mg a day. REVIEW OF SYSTEMS: Ambulation is impaired, in wheelchair, has a below-knee amputation hard of hearing. No CV, , pulmonary, eye system symptoms on review. Reliability is poor. MENTAL STATUS EXAM: Oriented to himself. Insight, judgment, recent and remote memory, attention, concentration, fund of knowledge I poor, consistent with his diagnoses. LABORATORY DATA: Reviewed. IMPRESSION: Unchanged from initial note. PLAN: No change from initial note. MAN Dulce CRUZ MD DR: JADA/archie JOB#: [id number] / [id number]
[2018-12-23 15:58] VITALS: BP 118/66
[2018-12-23] MEDS: MIRTAZAPINE 7.5 MG TABLET. PO SCH (19:54)
[2018-12-23] MEDS: traZODone 100 MG TABLET. PO SCH (19:54)
[2018-12-23] MEDS: RIVAROXABAN 15 MG TABLET. PO SCH (19:54)
[2018-12-23] MEDS: DIVALPROEX ER 500 MG TAB.ER.24H PO SCH (19:55)
[2018-12-23] MEDS: ATORVASTATIN CALCIUM 20 MG TABLET PO SCH (19:55)
--- NOTE | 2018-12-23 22:25 | PDOC ---
Exam Note: Dwain Note: Please also refer to the separate dictated note~for this date of service dictated separately.~Patient seen individually. Discussed the patient with Nursing staff reviewed the chart.~Reviewed interim history and current functioning. Reviewed vital signs,~Labs/ Radiology~and current medications noted below. Continue current treatment with the changes noted in the dictated addendum note Assessment: Vital Signs: Vital Signs Date Time Temp Pulse Resp B/P (MAP) Pulse Ox O2 Delivery O2 Flow Rate FiO2 12/23/18 15:58 97.9 71 20 118/66 (83) 96 12/23/18 08:58 Room Air I&O Intake and Output 12/23/18 06:59 Intake Total 1420 ml Balance 1420 ml Intake Oral 1420 ml Labs: Laboratory Tests Test 12/23/18 07:43 12/23/18 11:41 12/23/18 17:01 12/23/18 19:23 Glucose (Fingerstick) 109 mg/dL (70-99) H 238 mg/dL (70-99) H 271 mg/dL (70-99) H 227 mg/dL (70-99) H Current Medications: Meds: Current Medications Rivaroxaban (Xarelto) 20 mg HS PO Last administered on 11/25/18at 22:08; Start 11/25/18 at 21:00; Stop 11/26/18 at 14:13; Status DC Insulin Glargine (Lantus) 45 units QHS SQ Last administered on 12/04/18at 20:56; Start 11/25/18 at 21:00; Stop 12/05/18 at 14:08; Status DC Atorvastatin Calcium (Lipitor) 20 mg QHS PO Last administered on 12/23/18at 19:55; Start 11/26/18 at 21:00 Citalopram Hydrobromide (CeleXA) 10 mg DAILYBFRSUP PO Last administered on 11/26/18at 16:02; Start 11/26/18 at 17:00; Stop 11/27/18 at 11:53; Status DC Rivaroxaban (Xarelto) 20 mg HS PO ; Start 11/26/18 at 21:00; Stop 11/26/18 at 21:00; Status DC Acetaminophen (Tylenol) 650 mg PRN Q6HRS PRN PO PAIN / TEMP; Start 11/25/18 at 22:00 Amlodipine Besylate (Norvasc) 5 mg DAILY PO Last administered on 12/23/18 09:01; Start 11/26/18 at 09:00 Divalproex Sodium (Depakote Er) 500 mg DAILY PO Last administered on 11/27/18 09:00; Start 11/26/18 at 09:00; Stop 11/27/18 at 11:53; Status DC Donepezil HCl (Aricept) 5 mg DAILY PO Last administered on 12/23/18 08:37; Start 11/26/18 at 09:00 Insulin Human Lispro (HumaLOG) 10 units DAILYBFRLUN SQ Last administered on 12/23/18 12:06; Start 11/26/18 at 11:30 Insulin Human Lispro (HumaLOG) 10 units DAILYWBKFT SQ Last administered on 08:00; Start 11/26/18 at 08:00 Insulin Human Lispro (HumaLOG) 17 units DAILYWSUP SQ Last administered on 12/04/18at 17:37; Start 11/26/18 at 17:00; Stop 12/05/18 at 14:09; Status DC Insulin Glargine (Lantus) 5 units DAILY SQ Last administered on 12/23/18at 08:41; Start 11/26/18 at 09:00 Non-Formulary Medication (Insulin Detemir (Levemir)) 45 unit HS SQ ; Start 11/26/18 at 21:00; Stop 11/26/18 at 21:00; Status DC Levothyroxine Sodium (Synthroid) 25 mcg DAILY06 PO Last administered on 12/23/18at 03:08; Start 11/26/18 at 06:00 Lisinopril (Prinivil) 40 mg DAILY PO Last administered on 12/23/18 09:00; Start 11/26/18 at 09:00 Trazodone HCl (Desyrel) 50 mg QHS PO Last administered on 12/03/18 19:30; Start 11/25/18 at 22:00; Stop 12/04/18 at 18:39; Status DC Acetaminophen (Tylenol) 650 mg PRN Q6HRS PRN PO PAIN / TEMP; Start 11/25/18 at 23:30; Status UNV Multi-Ingredient Ointment (Analgesic [place]) 1 huseyin PRN QID PRN TP MUSCLE PAIN; Start 11/25/18 at 23:30 Al Hydroxide/Mg Hydroxide (Mylanta Plus Xs) 15 ml PRN AFTMEALHC PRN PO DYSPEPSIA; Start 11/25/18 at 23:30 Magnesium Hydroxide (Milk Of Magnesia) 2,400 mg PRN QHS PRN PO CONSTIPATION; Start 11/25/18 at 23:30 Rivaroxaban (Xarelto) 15 mg QHS PO Last administered on 12/23/18at 19:54; Start 11/26/18 at 21:00 Divalproex Sodium (Depakote Er) 750 mg HS PO Last administered on 11/30/18 19:24; Start 11/28/18 at 21:00; Stop 11/30/18 at 20:48; Status DC Sertraline HCl (Zoloft) 50 mg DAILY PO Last administered on 12/17/18at 07:46; Start 11/28/18 at 09:00; Stop 12/17/18 at 17:14; Status DC Divalproex Sodium (Depakote Er) 250 mg 1X ONCE PO Last administered on 11/27/18at 12:08; Start 11/27/18 at 11:45; Stop 11/27/18 at 11:58; Status DC Medroxyprogesterone Acetate (Provera) 2.5 mg DAILY PO Last administered on 12/01/18 08:03; Start 11/29/18 at 09:00; Stop 12/01/18 at 09:01; Status DC Medroxyprogesterone Acetate (Provera) 5 mg DAILY PO Last administered on 12/23/18at 08:36; Start 12/02/18 at 09:00 Divalproex Sodium (Depakote Er) 1,000 mg QHS PO Last administered on 12/23/18 19:55; Start 12/01/18 at 21:00 Trazodone HCl (Desyrel) 50 mg PRN QHS PRN PO INSOMNIA Last administered on 12/03/18 19:32; Start 12/02/18 at 17:45; Stop 12/04/18 at 18:39; Status DC Mirtazapine (Remeron) 7.5 mg QHS PO Last administered on 12/23/18 19:54; Start 12/03/18 at 21:00 Trazodone HCl (Desyrel) 100 mg QHS PO Last administered on 12/23/18 19:54; Start 12/04/18 at 21:00 Trazodone HCl (Desyrel) 100 mg PRN QHS PRN PO INSOMNIA; Start 12/04/18 at 19:00 Insulin Glargine (Lantus) 30 units QHS SQ Last administered on 12/23/18 19:56; Start 12/05/18 at 21:00 Insulin Human Lispro (HumaLOG) 10 units DAILYWSUP SQ Last administered on 17:04; Start 12/05/18 at 17:00 Albuterol/ Ipratropium (Duoneb) 3 ml PRN QID PRN NEB COUGH Last administered on 12/11/18 11:14; Start 12/10/18 at 13:30 Sertraline HCl (Zoloft) 75 mg DAILY PO Last administered on 12/23/18 08:38; Start 12/18/18 at 09:00 Bupropion HCl (Wellbutrin Xl) 150 mg DAILY PO Last administered on 12/19/18 08:10; Start 12/18/18 at 09:00; Stop 12/19/18 at 11:21; Status DC Bupropion HCl (Wellbutrin Xl) 300 mg DAILY PO Last administered on 12/23/18 08:38; Start 12/20/18 at 09:00 Active Scripts Active Reported Xarelto (Rivaroxaban) 15 Mg Tablet 15 Mg PO QHS Trazodone Hcl 100 Mg Tablet 100 Mg PO PRN QHS PRN Provera (Medroxyprogesterone Acetate) 5 Mg Tablet 5 Mg PO DAILY Zoloft (Sertraline Hcl) 50 Mg Tablet 50 Mg PO DAILY Mirtazapine 15 Mg Tablet 7.5 Mg PO QHS Analgesic [place] (Methyl Salicylate/Menthol) 28 Gm Oint...g. 1 Huseyin TP PRN QID PRN Milk Of Magnesia (Magnesium Hydroxide) 400 Mg/5 Ml Oral.susp 2,400 Mg PO PRN QHS PRN Mag-Al Plus Xs Suspension (Mag Hydrox/Al Hydrox/Simeth) 30 Ml Oral.susp 15 Ml PO PRN AFTMEALHC PRN Duoneb 0.5-3(2.5) Mg/3 Ml (Albuterol/Ipratropium) 3 Ml Ampul.neb 3 Ml NEB PRN QID PRN Atorvastatin Calcium 20 Mg Tablet 20 Mg PO QHS Amlodipine Besylate 5 Mg Tablet 5 Mg PO DAILY Acetaminophen 160 Mg/5 Ml Solution 650 Mg PO PRN Q6HRS PRN Trazodone Hcl 50 Mg Tablet 100 Mg PO HS Novolog Flexpen (Insulin Aspart) 100 Unit/1 Ml Insuln.pen 10 Unit SQ DAILYWSUP Novolog Flexpen (Insulin Aspart) 100 Unit/1 Ml Insuln.pen 10 Unit SQ DAILYBFRLUN Novolog Flexpen (Insulin Aspart) 100 Unit/1 Ml Insuln.pen 10 Unit SQ DAILYWBKFT Levothyroxine Sodium 25 Mcg Tablet 25 Mcg PO DAILY06 Levemir (Insulin Detemir) 100 Unit/1 Ml Vial 5 SQ DAILY Levemir (Insulin Detemir) 100 Unit/1 Ml Vial 30 Unit SQ HS Donepezil Hcl 5 Mg Tablet 5 Mg PO DAILY Divalproex Sodium Er (Divalproex Sodium) 500 Mg Tab.er.24h 1,000 Mg PO QHS Lisinopril 40 Mg Tablet 40 Mg PO DAILY I have reviewed the current psychotropics carefully including drug interactions. Risk benefit ratio favors no change other than as noted in my dictated progress note. 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
--- NOTE | 2018-12-23 22:45 | PN ---
DATE: 12/23/2018 PSYCHIATRIC PROGRESS NOTE This note covers elements not covered in my initial note 12/23/2018. SUBJECTIVE: I met with the patient evening of 12/23/2018. The patient slept 9-1/2 hours previous night. He remains confused, still withdrawn, spends much time in his room. REVIEW OF SYSTEMS: Hard of hearing, impaired ambulation, in wheelchair, has below-knee amputation. No CV, , pulmonary, eye system symptoms on review. Reliability poor. MENTAL STATUS EXAM: Oriented to himself. Insight, judgment, recent and remote memory, attention, concentration, fund of knowledge poor, consistent with his diagnosis mentioned in my initial note. PLAN: No change from initial note, with transition to nursing facility in the next day or so. MAN Dulce RCUZ MD DR: JADA/archie JOB#: [id number] / [id number]
--- NOTE | 2018-12-24 00:15 | PN ---
DATE: 12/21/2018 PSYCHIATRIC PROGRESS NOTE This late entry 12/21/2018 covers elements not covered in my initial note. SUBJECTIVE: I met with the patient in the evening of 12/21/2018. The patient slept 8-1/2 hours previous night. I met with him in his room. He is "crabby" in the morning per nursing report. He was made to stay up after breakfast, otherwise tends to withdraw to his room. REVIEW OF SYSTEMS: Hard of hearing, impaired ambulation, in wheelchair. No CV, , pulmonary, eye system symptoms on review. Reliability poor. MENTAL STATUS EXAM: Oriented to himself. Insight, judgment, recent and remote memory, attention, concentration, fund of knowledge poor, consistent with his diagnosis mentioned in my initial note. PLAN: No change from initial note. MAN Dulce CRUZ MD DR: JADA/archie JOB#: [id number] / [id number]
[2018-12-24 05:54] VITALS: BP 104/68
[2018-12-24] MEDS: LEVOTHYROXINE 25 MCG TABLET. PO SCH (06:12)
[2018-12-24] MEDS: INSULIN LISPRO 300 UNITS/3 ML INSULN.PEN. SQ SCH ×3 (08:00→17:00)
[2018-12-24] MEDS: buPROPion XL 300 MG TAB.ER.24H. PO SCH (09:04)
[2018-12-24] MEDS: medroxyPROGESTERone 5 MG TABLET PO SCH (09:04)
[2018-12-24] MEDS: SERTRALINE 50 MG TABLET. PO SCH (09:04)
[2018-12-24] MEDS: LISINOPRIL 20 MG TABLET PO SCH (09:05)
[2018-12-24] MEDS: DONEPEZIL HCL 5 MG TABLET. PO SCH (09:06)
[2018-12-24] MEDS: amLODIPine BESYLATE 5 MG TABLET PO SCH (09:06)
[2018-12-24] MEDS: INSULIN GLARGINE 300 UNITS/3 ML INSULN.PEN. SQ SCH ×2 (09:22→22:35)
[2018-12-24 16:21] VITALS: BP 135/73
[2018-12-24] MEDS: DIVALPROEX ER 500 MG TAB.ER.24H PO SCH (20:19)
[2018-12-24] MEDS: MIRTAZAPINE 7.5 MG TABLET. PO SCH (20:19)
[2018-12-24] MEDS: traZODone 100 MG TABLET. PO SCH (20:19)
[2018-12-24] MEDS: ATORVASTATIN CALCIUM 20 MG TABLET PO SCH (20:20)
[2018-12-24] MEDS: RIVAROXABAN 15 MG TABLET. PO SCH (20:21)
--- NOTE | 2018-12-24 22:28 | PN ---
DATE: 12/24/2018 PSYCHIATRIC PROGRESS NOTE This note covers elements not covered in my initial note 12/24/2018. SUBJECTIVE: I met with the patient in the evening. The patient slept 7 hours previous night. He has somewhat poor eye contact, coming out more for activities the rest of the time, still gets withdrawn to his room. REVIEW OF SYSTEMS: Ambulation impaired, in wheelchair, right leg below-knee amputation, hard of hearing. No CV, , pulmonary, eye system symptoms on review. MENTAL STATUS EXAM: Oriented to himself. Insight, judgment, recent and remote memory, attention, concentration, fund of knowledge poor, consistent with his diagnosis mentioned in my initial note. PLAN: No change from initial note. MAN Dulce CRUZ MD DR: JADA/archie JOB#: [id number] / [id number]
--- NOTE | 2018-12-24 22:29 | PDOC ---
Exam Note: Dwain Note: Please also refer to the separate dictated note~for this date of service dictated separately.~Patient seen individually. Discussed the patient with Nursing staff reviewed the chart.~Reviewed interim history and current functioning. Reviewed vital signs,~Labs/ Radiology~and current medications noted below. Continue current treatment with the changes noted in the dictated addendum note Assessment: Vital Signs: Vital Signs Date Time Temp Pulse Resp B/P (MAP) Pulse Ox O2 Delivery O2 Flow Rate FiO2 12/24/18 16:21 98.1 74 20 135/73 (93) 93 Room Air I&O Intake and Output 12/24/18 06:59 Intake Total 1200 ml Balance 1200 ml Intake Oral 1200 ml # Voids 1 Labs: Laboratory Tests Test 12/24/18 07:32 12/24/18 12:00 12/24/18 17:23 12/24/18 20:08 Glucose (Fingerstick) 98 mg/dL (70-99) 189 mg/dL (70-99) H 102 mg/dL (70-99) H 89 mg/dL (70-99) Current Medications: Meds: Current Medications Rivaroxaban (Xarelto) 20 mg HS PO Last administered on 11/25/18at 22:08; Start 11/25/18 at 21:00; Stop 11/26/18 at 14:13; Status DC Insulin Glargine (Lantus) 45 units QHS SQ Last administered on 12/04/18at 20:56; Start 11/25/18 at 21:00; Stop 12/05/18 at 14:08; Status DC Atorvastatin Calcium (Lipitor) 20 mg QHS PO Last administered on 12/24/18at 20:20; Start 11/26/18 at 21:00 Citalopram Hydrobromide (CeleXA) 10 mg DAILYBFRSUP PO Last administered on 11/26/18at 16:02; Start 11/26/18 at 17:00; Stop 11/27/18 at 11:53; Status DC Rivaroxaban (Xarelto) 20 mg HS PO ; Start 11/26/18 at 21:00; Stop 11/26/18 at 21:00; Status DC Acetaminophen (Tylenol) 650 mg PRN Q6HRS PRN PO PAIN / TEMP; Start 11/25/18 at 22:00 Amlodipine Besylate (Norvasc) 5 mg DAILY PO Last administered on 12/24/18 09:06; Start 11/26/18 at 09:00 Divalproex Sodium (Depakote Er) 500 mg DAILY PO Last administered on 11/27/18 09:00; Start 11/26/18 at 09:00; Stop 11/27/18 at 11:53; Status DC Donepezil HCl (Aricept) 5 mg DAILY PO Last administered on 12/24/18 09:06; Start 11/26/18 at 09:00 Insulin Human Lispro (HumaLOG) 10 units DAILYBFRLUN SQ Last administered on 12/24/18 13:21; Start 11/26/18 at 11:30 Insulin Human Lispro (HumaLOG) 10 units DAILYWBKFT SQ Last administered on 12/21/18 08:00; Start 11/26/18 at 08:00 Insulin Human Lispro (HumaLOG) 17 units DAILYWSUP SQ Last administered on 12/04/18at 17:37; Start 11/26/18 at 17:00; Stop 12/05/18 at 14:09; Status DC Insulin Glargine (Lantus) 5 units DAILY SQ Last administered on 12/24/18 09:22; Start 11/26/18 at 09:00 Non-Formulary Medication (Insulin Detemir (Levemir)) 45 unit HS SQ ; Start 11/26/18 at 21:00; Stop 11/26/18 at 21:00; Status DC Levothyroxine Sodium (Synthroid) 25 mcg DAILY06 PO Last administered on 12/24/18 06:12; Start 11/26/18 at 06:00 Lisinopril (Prinivil) 40 mg DAILY PO Last administered on 12/24/18 09:05; Start 11/26/18 at 09:00 Trazodone HCl (Desyrel) 50 mg QHS PO Last administered on 12/03/18 19:30; Start 11/25/18 at 22:00; Stop 12/04/18 at 18:39; Status DC Acetaminophen (Tylenol) 650 mg PRN Q6HRS PRN PO PAIN / TEMP; Start 11/25/18 at 23:30; Status UNV Multi-Ingredient Ointment (Analgesic [place]) 1 huseyin PRN QID PRN TP MUSCLE PAIN; Start 11/25/18 at 23:30 Al Hydroxide/Mg Hydroxide (Mylanta Plus Xs) 15 ml PRN AFTMEALHC PRN PO DYSPEPSIA; Start 11/25/18 at 23:30 Magnesium Hydroxide (Milk Of Magnesia) 2,400 mg PRN QHS PRN PO CONSTIPATION; Start 11/25/18 at 23:30 Rivaroxaban (Xarelto) 15 mg QHS PO Last administered on 12/24/18at 20:21; Start 11/26/18 at 21:00 Divalproex Sodium (Depakote Er) 750 mg HS PO Last administered on 11/30/18 19:24; Start 11/28/18 at 21:00; Stop 11/30/18 at 20:48; Status DC Sertraline HCl (Zoloft) 50 mg DAILY PO Last administered on 12/17/18at 07:46; Start 11/28/18 at 09:00; Stop 12/17/18 at 17:14; Status DC Divalproex Sodium (Depakote Er) 250 mg 1X ONCE PO Last administered on 11/27/18at 12:08; Start 11/27/18 at 11:45; Stop 11/27/18 at 11:58; Status DC Medroxyprogesterone Acetate (Provera) 2.5 mg DAILY PO Last administered on 12/01/18 08:03; Start 11/29/18 at 09:00; Stop 12/01/18 at 09:01; Status DC Medroxyprogesterone Acetate (Provera) 5 mg DAILY PO Last administered on 12/24/18at 09:04; Start 12/02/18 at 09:00 Divalproex Sodium (Depakote Er) 1,000 mg QHS PO Last administered on 12/24/18 20:19; Start 12/01/18 at 21:00 Trazodone HCl (Desyrel) 50 mg PRN QHS PRN PO INSOMNIA Last administered on 12/03/18 19:32; Start 12/02/18 at 17:45; Stop 12/04/18 at 18:39; Status DC Mirtazapine (Remeron) 7.5 mg QHS PO Last administered on 12/24/18 20:19; Start 12/03/18 at 21:00 Trazodone HCl (Desyrel) 100 mg QHS PO Last administered on 12/24/18 20:19; Start 12/04/18 at 21:00 Trazodone HCl (Desyrel) 100 mg PRN QHS PRN PO INSOMNIA; Start 12/04/18 at 19:00 Insulin Glargine (Lantus) 30 units QHS SQ Last administered on 12/23/18at 19:56; Start 12/05/18 at 21:00 Insulin Human Lispro (HumaLOG) 10 units DAILYWSUP SQ Last administered on 12/23/18 17:04; Start 12/05/18 at 17:00 Albuterol/ Ipratropium (Duoneb) 3 ml PRN QID PRN NEB COUGH Last administered on 12/11/18 11:14; Start 12/10/18 at 13:30 Sertraline HCl (Zoloft) 75 mg DAILY PO Last administered on 12/24/18 09:04; Start 12/18/18 at 09:00 Bupropion HCl (Wellbutrin Xl) 150 mg DAILY PO Last administered on 12/19/18 08:10; Start 12/18/18 at 09:00; Stop 12/19/18 at 11:21; Status DC Bupropion HCl (Wellbutrin Xl) 300 mg DAILY PO Last administered on 12/24/18 09:04; Start 12/20/18 at 09:00 Active Scripts Active Reported Xarelto (Rivaroxaban) 15 Mg Tablet 15 Mg PO QHS Trazodone Hcl 100 Mg Tablet 100 Mg PO PRN QHS PRN Provera (Medroxyprogesterone Acetate) 5 Mg Tablet 5 Mg PO DAILY Zoloft (Sertraline Hcl) 50 Mg Tablet 50 Mg PO DAILY Mirtazapine 15 Mg Tablet 7.5 Mg PO QHS Analgesic [place] (Methyl Salicylate/Menthol) 28 Gm Oint...g. 1 Huseyin TP PRN QID PRN Milk Of Magnesia (Magnesium Hydroxide) 400 Mg/5 Ml Oral.susp 2,400 Mg PO PRN QHS PRN Mag-Al Plus Xs Suspension (Mag Hydrox/Al Hydrox/Simeth) 30 Ml Oral.susp 15 Ml PO PRN AFTMEALHC PRN Duoneb 0.5-3(2.5) Mg/3 Ml (Albuterol/Ipratropium) 3 Ml Ampul.neb 3 Ml NEB PRN QID PRN Atorvastatin Calcium 20 Mg Tablet 20 Mg PO QHS Amlodipine Besylate 5 Mg Tablet 5 Mg PO DAILY Acetaminophen 160 Mg/5 Ml Solution 650 Mg PO PRN Q6HRS PRN Trazodone Hcl 50 Mg Tablet 100 Mg PO HS Novolog Flexpen (Insulin Aspart) 100 Unit/1 Ml Insuln.pen 10 Unit SQ DAILYWSUP Novolog Flexpen (Insulin Aspart) 100 Unit/1 Ml Insuln.pen 10 Unit SQ DAILYBFRLUN Novolog Flexpen (Insulin Aspart) 100 Unit/1 Ml Insuln.pen 10 Unit SQ DAILYWBKFT Levothyroxine Sodium 25 Mcg Tablet 25 Mcg PO DAILY06 Levemir (Insulin Detemir) 100 Unit/1 Ml Vial 5 SQ DAILY Levemir (Insulin Detemir) 100 Unit/1 Ml Vial 30 Unit SQ HS Donepezil Hcl 5 Mg Tablet 5 Mg PO DAILY Divalproex Sodium Er (Divalproex Sodium) 500 Mg Tab.er.24h 1,000 Mg PO QHS Lisinopril 40 Mg Tablet 40 Mg PO DAILY I have reviewed the current psychotropics carefully including drug interactions. Risk benefit ratio favors no change other than as noted in my dictated progress note. Diagnosis: Problems: (1) Anxiety disorder (2) Dementia, vascular, with delusions (3) Dementia, vascular, with depression (4) Dementia in Alzheimer's disease with delusions (5) Dementia in Alzheimer's disease with depression (6) Impulse control disorder NEGIN CRUZ MD December 24, 2018 22:29
[2018-12-25] MEDS ORDERED: BUPR300T4 PO (04:12)
[2018-12-25] MEDS ORDERED: MEDR5TAB PO (04:13)
[2018-12-25] MEDS: LEVOTHYROXINE 25 MCG TABLET. PO SCH (05:44)
[2018-12-25 06:26] VITALS: BP 138/82
[2018-12-25] MEDS ORDERED: ACET325T9 PO (07:55)
[2018-12-25] MEDS: INSULIN LISPRO 300 UNITS/3 ML INSULN.PEN. SQ SCH (08:19)
[2018-12-25] MEDS: LISINOPRIL 20 MG TABLET PO SCH (08:29)
[2018-12-25] MEDS: DONEPEZIL HCL 5 MG TABLET. PO SCH (08:30)
[2018-12-25] MEDS: SERTRALINE 50 MG TABLET. PO SCH (08:30)
[2018-12-25 08:31] VITALS: BP 138/82
[2018-12-25] MEDS: medroxyPROGESTERone 5 MG TABLET PO SCH (08:31)
[2018-12-25] MEDS: amLODIPine BESYLATE 5 MG TABLET PO SCH (08:31)
[2018-12-25] MEDS: buPROPion XL 300 MG TAB.ER.24H. PO SCH (08:31)
[2018-12-25] MEDS: INSULIN GLARGINE 300 UNITS/3 ML INSULN.PEN. SQ SCH (08:33)
--- NOTE | 2018-12-25 22:15 | PDOC ---
Exam Note: Dwain Note: Please also refer to the separate dictated note~for this date of service dictated separately.~Patient seen individually. Discussed the patient with Nursing staff reviewed the chart.~Reviewed interim history and current functioning. Reviewed vital signs,~Labs/ Radiology~and current medications noted below. Continue current treatment with the changes noted in the dictated addendum note Assessment: Vital Signs: Vital Signs Date Time Temp Pulse Resp B/P (MAP) Pulse Ox O2 Delivery O2 Flow Rate FiO2 12/25/18 08:31 70 138/82 12/25/18 06:26 98.6 18 98 12/24/18 16:21 Room Air I&O Intake and Output 12/25/18 07:00 Intake Total 1320 ml Balance 1320 ml Intake Oral 1320 ml Labs: Laboratory Tests Test 12/24/18 22:32 12/25/18 07:35 Glucose (Fingerstick) 198 mg/dL (70-99) H 117 mg/dL (70-99) H Current Medications: Meds: Current Medications Rivaroxaban (Xarelto) 20 mg HS PO Last administered on 11/25/18at 22:08; Start 11/25/18 at 21:00; Stop 11/26/18 at 14:13; Status DC Insulin Glargine (Lantus) 45 units QHS SQ Last administered on 12/04/18at 20:56; Start 11/25/18 at 21:00; Stop 12/05/18 at 14:08; Status DC Atorvastatin Calcium (Lipitor) 20 mg QHS PO Last administered on 12/24/18at 20:20; Start 11/26/18 at 21:00; Stop 12/25/18 at 11:35; Status DC Citalopram Hydrobromide (CeleXA) 10 mg DAILYBFRSUP PO Last administered on 11/26/18at 16:02; Start 11/26/18 at 17:00; Stop 11/27/18 at 11:53; Status DC Rivaroxaban (Xarelto) 20 mg HS PO ; Start 11/26/18 at 21:00; Stop 11/26/18 at 21:00; Status DC Acetaminophen (Tylenol) 650 mg PRN Q6HRS PRN PO PAIN / TEMP; Start 11/25/18 at 22:00; Stop 12/25/18 at 11:35; Status DC Amlodipine Besylate (Norvasc) 5 mg DAILY PO Last administered on 12/25/18at 08:31; Start 11/26/18 at 09:00; Stop 12/25/18 at 11:35; Status DC Divalproex Sodium (Depakote Er) 500 mg DAILY PO Last administered on 11/27/18at 09:00; Start 11/26/18 at 09:00; Stop 11/27/18 at 11:53; Status DC Donepezil HCl (Aricept) 5 mg DAILY PO Last administered on 12/25/18at 08:30; Start 11/26/18 at 09:00; Stop 12/25/18 at 11:35; Status DC Insulin Human Lispro (HumaLOG) 10 units DAILYBFRLUN SQ Last administered on 12/24/18at 13:21; Start 11/26/18 at 11:30; Stop 12/25/18 at 11:35; Status DC Insulin Human Lispro (HumaLOG) 10 units DAILYWBKFT SQ Last administered on 12/21/18at 08:00; Start 11/26/18 at 08:00; Stop 12/25/18 at 11:35; Status DC Insulin Human Lispro (HumaLOG) 17 units DAILYWSUP SQ Last administered on 12/04/18at 17:37; Start 11/26/18 at 17:00; Stop 12/05/18 at 14:09; Status DC Insulin Glargine (Lantus) 5 units DAILY SQ Last administered on 12/25/18at 08:33; Start 11/26/18 at 09:00; Stop 12/25/18 at 11:35; Status DC Non-Formulary Medication (Insulin Detemir (Levemir)) 45 unit HS SQ ; Start 11/26/18 at 21:00; Stop 11/26/18 at 21:00; Status DC Levothyroxine Sodium (Synthroid) 25 mcg DAILY06 PO Last administered on 12/25/18at 05:44; Start 11/26/18 at 06:00; Stop 12/25/18 at 11:35; Status DC Lisinopril (Prinivil) 40 mg DAILY PO Last administered on 12/25/18at 08:29; Start 11/26/18 at 09:00; Stop 12/25/18 at 11:35; Status DC Trazodone HCl (Desyrel) 50 mg QHS PO Last administered on 12/03/18 19:30; Start 11/25/18 at 22:00; Stop 12/04/18 at 18:39; Status DC Acetaminophen (Tylenol) 650 mg PRN Q6HRS PRN PO PAIN / TEMP; Start 11/25/18 at 23:30; Status UNV Multi-Ingredient Ointment (Analgesic [place]) 1 huseyin PRN QID PRN TP MUSCLE PAIN; Start 11/25/18 at 23:30; Stop 12/25/18 at 11:35; Status DC Al Hydroxide/Mg Hydroxide (Mylanta Plus Xs) 15 ml PRN AFTMEALHC PRN PO DYSPEPSIA; Start 11/25/18 at 23:30; Stop 12/25/18 at 11:35; Status DC Magnesium Hydroxide (Milk Of Magnesia) 2,400 mg PRN QHS PRN PO CONSTIPATION; Start 11/25/18 at 23:30; Stop 12/25/18 at 11:35; Status DC Rivaroxaban (Xarelto) 15 mg QHS PO Last administered on 12/24/18at 20:21; Start 11/26/18 at 21:00; Stop 12/25/18 at 11:35; Status DC Divalproex Sodium (Depakote Er) 750 mg HS PO Last administered on 11/30/18 19:24; Start 11/28/18 at 21:00; Stop 11/30/18 at 20:48; Status DC Sertraline HCl (Zoloft) 50 mg DAILY PO Last administered on 12/17/18at 07:46; Start 11/28/18 at 09:00; Stop 12/17/18 at 17:14; Status DC Divalproex Sodium (Depakote Er) 250 mg 1X ONCE PO Last administered on 11/27/18at 12:08; Start 11/27/18 at 11:45; Stop 11/27/18 at 11:58; Status DC Medroxyprogesterone Acetate (Provera) 2.5 mg DAILY PO Last administered on 12/01/18at 08:03; Start 11/29/18 at 09:00; Stop 12/01/18 at 09:01; Status DC Medroxyprogesterone Acetate (Provera) 5 mg DAILY PO Last administered on 12/25/18 08:31; Start 12/02/18 at 09:00; Stop 12/25/18 at 11:35; Status DC Divalproex Sodium (Depakote Er) 1,000 mg QHS PO Last administered on 12/24/18 20:19; Start 12/01/18 at 21:00; Stop 12/25/18 at 11:35; Status DC Trazodone HCl (Desyrel) 50 mg PRN QHS PRN PO INSOMNIA Last administered on 12/03/18at 19:32; Start 12/02/18 at 17:45; Stop 12/04/18 at 18:39; Status DC Mirtazapine (Remeron) 7.5 mg QHS PO Last administered on 12/24/18at 20:19; Start 12/03/18 at 21:00; Stop 12/25/18 at 11:35; Status DC Trazodone HCl (Desyrel) 100 mg QHS PO Last administered on 12/24/18at 20:19; Start 12/04/18 at 21:00; Stop 12/25/18 at 11:35; Status DC Trazodone HCl (Desyrel) 100 mg PRN QHS PRN PO INSOMNIA; Start 12/04/18 at 19:00; Stop 12/25/18 at 11:35; Status DC Insulin Glargine (Lantus) 30 units QHS SQ Last administered on 12/24/18at 22:35; Start 12/05/18 at 21:00; Stop 12/25/18 at 11:35; Status DC Insulin Human Lispro (HumaLOG) 10 units DAILYWSUP SQ Last administered on 12/23/18at 17:04; Start 12/05/18 at 17:00; Stop 12/25/18 at 11:35; Status DC Albuterol/ Ipratropium (Duoneb) 3 ml PRN QID PRN NEB COUGH Last administered on 12/11/18at 11:14; Start 12/10/18 at 13:30; Stop 12/25/18 at 11:35; Status DC Sertraline HCl (Zoloft) 75 mg DAILY PO Last administered on 12/25/18at 08:30; Start 12/18/18 at 09:00; Stop 12/25/18 at 11:35; Status DC Bupropion HCl (Wellbutrin Xl) 150 mg DAILY PO Last administered on 12/19/18at 08:10; Start 12/18/18 at 09:00; Stop 12/19/18 at 11:21; Status DC Bupropion HCl (Wellbutrin Xl) 300 mg DAILY PO Last administered on 12/25/18at 08:31; Start 12/20/18 at 09:00; Stop 12/25/18 at 11:35; Status DC Active Scripts Active Reported Tylenol (Acetaminophen) 325 Mg Tablet 650 Mg PO PRN Q6HRS PRN Provera (Medroxyprogesterone Acetate) 5 Mg Tablet 5 Mg PO DAILY Bupropion Xl (Bupropion Hcl) 300 Mg Tab.er.24h 300 Mg PO DAILY Xarelto (Rivaroxaban) 15 Mg Tablet 15 Mg PO QHS Trazodone Hcl 100 Mg Tablet 100 Mg PO PRN QHS PRN Provera (Medroxyprogesterone Acetate) 5 Mg Tablet 5 Mg PO DAILY Zoloft (Sertraline Hcl) 50 Mg Tablet 50 Mg PO DAILY Mirtazapine 15 Mg Tablet 7.5 Mg PO QHS Analgesic [place] (Methyl Salicylate/Menthol) 28 Gm Oint...g. 1 Huseyin TP PRN QID PRN Milk Of Magnesia (Magnesium Hydroxide) 400 Mg/5 Ml Oral.susp 2,400 Mg PO PRN QHS PRN Mag-Al Plus Xs Suspension (Mag Hydrox/Al Hydrox/Simeth) 30 Ml Oral.susp 15 Ml PO PRN AFTMEALHC PRN Duoneb 0.5-3(2.5) Mg/3 Ml (Albuterol/Ipratropium) 3 Ml Ampul.neb 3 Ml NEB PRN QID PRN Atorvastatin Calcium 20 Mg Tablet 20 Mg PO QHS Amlodipine Besylate 5 Mg Tablet 5 Mg PO DAILY Trazodone Hcl 50 Mg Tablet 100 Mg PO HS Novolog Flexpen (Insulin Aspart) 100 Unit/1 Ml Insuln.pen 10 Unit SQ DAILYWSUP Novolog Flexpen (Insulin Aspart) 100 Unit/1 Ml Insuln.pen 10 Unit SQ DAILYBFRLUN Novolog Flexpen (Insulin Aspart) 100 Unit/1 Ml Insuln.pen 10 Unit SQ DAILYWBKFT Levothyroxine Sodium 25 Mcg Tablet 25 Mcg PO DAILY06 Levemir (Insulin Detemir) 100 Unit/1 Ml Vial 5 SQ DAILY Levemir (Insulin Detemir) 100 Unit/1 Ml Vial 30 Unit SQ HS Donepezil Hcl 5 Mg Tablet 5 Mg PO DAILY Divalproex Sodium Er (Divalproex Sodium) 500 Mg Tab.er.24h 1,000 Mg PO QHS Lisinopril 40 Mg Tablet 40 Mg PO DAILY I have reviewed the current psychotropics carefully including drug interactions. Risk benefit ratio favors no change other than as noted in my dictated progress note. 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
--- NOTE | 2018-12-27 22:25 | DS ---
DATE OF DISCHARGE: 12/25/2018 DISCHARGE SUMMARY/PSYCHIATRIC PROGRESS NOTE. REASON FOR ADMISSION: Please refer to the admission history for details. Briefly, the patient is an 83-year-old male referred to us from [facility] by his primary care physician on account of worsening confusion, agitation worsened by him being quite hard of hearing. He was masturbating during cares, asking sexual favors from other residents, putting female residents hands on his penis, being verbally aggressive, unmanageable at the facility. He had failed all failed outpatient psychiatric interventions resulting in this referral. SIGNIFICANT FINDINGS AND CLINICAL COURSE: Following admission, the patient was seen daily individually by myself from a psychiatric standpoint, medical followup with Dr. Pierre. The patient remains extremely agitated, withdrawn, depressed and being hard of hearing, impaired in his communication significantly. Adjustments were made in his psychotropics. He seemed to respond to a combination of Zoloft 75 mg a day, Depakote ER 1000 mg at bedtime with a level of 42, even though it was slightly subtherapeutic, was clinically adequate. He was also on Aricept 5 mg a day, trazodone 100 mg at bedtime, may repeat x 1. Provera was added to help reduce his sexual aggression at 5 mg daily, Remeron 7.5 mg at bedtime, Wellbutrin-XL was added and increased to 300 mg a day to augment the Zoloft given his ongoing withdrawal isolation and gradually, he seemed to do better prior to discharge on 12/25/2018. REVIEW OF SYSTEMS: Hard of hearing, impaired ambulation, in wheelchair. No CV, , pulmonary, eye system symptoms on review. MENTAL STATUS EXAM: Oriented to himself at times situation. Insight, judgment, recent and remote memory, attention, concentration, fund of knowledge poor, consistent with his diagnosis. FINAL DIAGNOSES: Major neurocognitive disorder, Alzheimer, vascular with delusion, depression, behavioral disturbance; anxiety disorder, unspecified; impulse control disorder, unspecified. Rest unchanged from admission. DISCHARGE MEDICATIONS: Please refer to the MRAD. DISCHARGE INSTRUCTIONS: Outpatient psychiatric and medical followup at the correction. Time for discharge day management greater than 30 minutes. NEGIN CRUZ MD DR: JADA/archie JOB#: [id number] / [id number]
== END 2018-12-25 10:00 | DRG 57 ==
LOC: ER 16:57 → GEROPSY 19:01
PROVIDERS: ADMIT Psychiatry & Neurology Psychiatry; ATTEND Psychiatry & Neurology Psychiatry
DX: G30.9 Alzheimer's disease, unspecified (principal); F02.81 Dementia in other diseases classified elsewhere, unspecified severity, with behavioral disturbance; E87.1 Hypo-osmolality and hyponatremia; J44.9 Chronic obstructive pulmonary disease, unspecified; E87.5 Hyperkalemia; E11.65 Type 2 diabetes mellitus with hyperglycemia; F01.50 Vascular dementia, unspecified severity, without behavioral disturbance, psychotic disturbance, mood disturbance, and anxiety; E03.9 Hypothyroidism, unspecified; E11.40 Type 2 diabetes mellitus with diabetic neuropathy, unspecified; E78.5 Hyperlipidemia, unspecified; F32.9 Major depressive disorder, single episode, unspecified; F41.9 Anxiety disorder, unspecified; F63.9 Impulse disorder, unspecified; H91.90 Unspecified hearing loss, unspecified ear; I10 Essential (primary) hypertension; I25.10 Atherosclerotic heart disease of native coronary artery without angina pectoris; I48.91 Unspecified atrial fibrillation; Z95.0 Presence of cardiac pacemaker; Z89.511 Acquired absence of right leg below knee; Z79.899 Other long term (current) drug therapy; Z88.5 Allergy status to narcotic agent
CPT/HCPCS: 36415; 71045; 80053; 80061; 80164; 81001; 82306; 82947; 83036; 83540; 83550; 83735; 84436; 84443; 84480; 85025; 86592; 92526; 93005; 94640; 99406; J1815; J7620; 92610; 99285-25